=== PATIENT | female | born 1990 | race Two or more races ===

== ENCOUNTER 2024-01-08 17:37 | Emergency (ER) | payer MEDICAID, SELFPAY ==
[2024-01-08 17:41] VITALS: PULSE 102; O2SAT 98
[2024-01-08 18:05] VITALS: BP 124/79; PULSE 86; RESP 18; TEMP 37.1; O2SAT 99; BMI 42.5
--- NOTE | 2024-01-08 18:12 | PD.EDRME ---
Rapid Medical Screening Exam RME Arrival date/time: 01/08/24 17:37 33-year-old female past medical history of diabetes approximately 18 weeks A2 presents emergency department complaining of nausea vomiting and diarrhea that is been ongoing since today. Time Seen by Provider: 01/08/24 18:09 Vital signs: Vital Signs Temperature 98.7 F 01/08/24 18:05 Pulse Rate 86 01/08/24 18:05 Respiratory Rate 18 01/08/24 18:05 Blood Pressure 124/79 01/08/24 18:05 Pulse Oximetry (%) 99 01/08/24 18:05 Oxygen Delivery Method Room Air 01/08/24 18:05 Vital signs reviewed by provider: Yes
[2024-01-08 19:00] LABS: Basophils # (Auto) 0.1 Thou/mm3 (0.0-0.2); Basophils % (Auto) 1 % (0-2.5); Eosinophils # (Auto) 0.3 Thou/mm3 (0.0-0.5); Eosinophils % (Auto) 2 % (0-10); Hematocrit 31.8 % (36.0-46.0); Hemoglobin 10.1 g/dL (12.0-16.0); Immature Granulocytes % (Auto) 1 % (0-0); Lymphocytes % (Auto) 19 % (10-50); Mean Corpuscular HGB Conc 31.8 g/dl (31.0-37.0); Mean Corpuscular Hemoglobin 25.8 pg (25.0-35.0); Mean Corpuscular Volume 81 fL (80-100); Monocytes # (Auto) 1.2 Thou/mm3 (0.0-0.8); Monocytes % (Auto) 7 % (0-12); Neutrophils # (Auto) 11.4 Thou/mm3 (1.8-7.7); Neutrophils % (Auto) 71 % (37-80); Nucleated Red Blood Cell % 0 /100 WBC (0); Platelet Count 507 Thou/mm3 (140-440); RDW Standard Deviation 49.7 fL (36.4-46.3); Red Blood Count 3.91 Miln/mm3 (4.00-5.20); White Blood Count 16.1 Thou/mm3 (3.6-11.0)
[2024-01-08 19:21] LABS: Alanine Aminotransferase 12 U/L (10-49); Albumin, Serum 3.9 gm/dL (3.5-5.0); Albumin/Globulin Ratio 1.1 (1.2-2.2); Alkaline Phosphatase 109 U/L (46-116); Anion Gap 9 (7-16); Aspartate Amino Transferase 15 U/L (0-34); BUN/Creatinine Ratio 13 Ratio (12-20); Bilirubin,Total 0.2 mg/dL (0.3-1.2); Blood Urea Nitrogen 10 mg/dL (9-23); Calcium 9.6 mg/dL (8.3-10.6); Calcium (Corrected) 9.7 mg/dL (8.5-10.1); Carbon Dioxide 22.6 mMol/L (20.0-31.0); Chloride 98 mMol/L (98-107); Creatinine (Component) 0.8 mg/dL (0.6-1.3); Estimated Creatinine Clearance 117.3 mL/min (>60); Globulin 3.4 gm/dL (2.3-3.5); Glucose 260 mg/dL (74-106); Lipase 19 U/L (12-53); Osmolality,Calculated 268 (275-295); Potassium 4.1 mMol/L (3.4-5.1); Sodium 130 mMol/L (136-145); Total Protein 7.3 gm/dL (5.7-8.2); eGFR > 60 See Note
[2024-01-08 21:07] LABS: Collection Type, Urine Clean Catch
[2024-01-08 21:20] LABS: Bilirubin,Urine Negative (Negative); Blood,Urine Negative (Negative); Clarity,Urine Clear (Clear/Hazy); Color,Urine Yellow (Lt Yel-Yel); Culture Indicated,Urine Not Indicated; Glucose, Urine 4+ (Negative); Hyaline Casts,Urine < 1 /hpf (0-1); Ketones,Urine 2+ (Negative); Leukocyte Esterase,Urine Positive (Negative); Nitrite,Urine Negative (Negative); Protein,Urine 1+ (Neg - Trace); RBC,Urine 6 /hpf (0-3); Specific Gravity,Urine 1.047 (1.001-1.035); Squamous Epithelial Cell,Urine 2 /hpf (0-5); Urobilinogen,Urine Negative mg/dL (0.0-1.0); WBC,Urine 7 /hpf (0-5)
[2024-01-08 21:26] LABS: Amphetamine/Methamp Scrn,U Negative (Negative); Barbiturate Screen,Urine Negative (Negative); Benzodiazepines Screen,Urine Negative (Negative); Benzoylecgonine Screen, Ur Positive (Negative); Fentanyl Screen,Urine Negative (Negative); Opiate Screen,Urine Negative (Negative); THC Screen,Urine Negative (Negative)
--- NOTE | 2024-01-08 22:11 | XR_ITS ---
Examination: Complete OB ultrasound greater than 14 weeks Date and time of exam: January 08, 2024 1033 hrs. Indications: Onset vomiting today Findings: Viable intrauterine single fetus with single amniotic sac presentation breech Cardiac motion 136 BPM Placenta posterior grade 0 Umbilical cord insertion seen Amniotic fluid index 13.2 cm Ovaries obscured by bowel gas. Composite estimated gestational age based on BPD, head circumference, abdominal circumference, femur length is 17 weeks 2 days Estimated weight 179.8 g. Survey of intracranial anatomy, spinal anatomy, abdominal anatomy, four-chamber heart performed with no abnormalities identified. Impression: Viable intrauterine gestation breech presentation.
[2024-01-08] MEDS: ONDANSETRON ODT 4 MG TABRAP PO (23:13)
[2024-01-08 23:22] LABS: Beta HCG,Quantitative 24013 mIU/mL (<5.0)
--- NOTE | 2024-01-08 23:57 | PD.EDNV ---
Nausea/Vomit./Diarrhea-RME/HPI General Stated complaint: N/V Time Seen by Provider: 01/08/24 18:09 Source: patient Arrival date/time: 01/08/24 17:37 33-year-old female past medical history of diabetes approximately 18 weeks A2 presents emergency department complaining of nausea vomiting and diarrhea and dysuria that is been ongoing since today. Patient denies any fever, chills, vaginal bleeding, flank pain, abdominal pain, or any other associated symptom. Mode of arrival: ambulatory Limitations: no limitations RME / HPI RME / HPI Narrative: 01/08/24 17:37 33-year-old female past medical history of diabetes approximately 18 weeks A2 presents emergency department complaining of nausea vomiting and diarrhea that is been ongoing since today. Related Data Home Medications ?Medication ?Instructions ?Recorded ?Confirmed esomeprazole magnesium 40 mg 40 mg PO DAILY 04/24/22 12/24/23 capsule,delayed release Previous Rx's ?Medication ?Instructions ?Recorded blood-glucose sensor (FreeStyle #1 ea 05/19/23 Rickey 3 Sensor device) levothyroxine 112 mcg tablet 112 mcg PO ACBR #30 tabs 12/16/23 multivitamin with folic acid 400 1 tab PO DAILY #30 tabs 12/16/23 mcg tablet (Tab-A-Juanita) ondansetron HCl 4 mg tablet 4 mg PO Q8H PRN nausea and 12/16/23 vomiting #30 tabs promethazine 25 mg tablet 25 mg PO Q6HR PRN Nausea Or 12/16/23 Vomiting #30 tabs insulin glargine U-300 conc 300 40 unit (0.1333 mL) subcut ONCE PM 12/25/23 unit/mL (1.5 mL) subcutaneous pen #4.5 mL (Toujeo SoloStar U-300 Insulin) insulin lispro 100 unit/mL 8 unit (0.08 mL) subcut TID #15 mL 12/25/23 subcutaneous pen (Humalog KwikPen (U-100) Insulin) nortriptyline 25 mg capsule 25 mg PO DAILY 30 days #30 caps 12/25/23 cephalexin 500 mg capsule 500 mg PO TID 5 days #15 caps 01/08/24 ondansetron 4 mg disintegrating 4 mg PO Q8H PRN nausea and 01/08/24 tablet vomiting #10 tabs Allergies Allergy/AdvReac Type Severity Reaction Status Date / Time No Known Allergies Allergy Verified 12/23/23 13:08 Review of Systems Review of Systems Systems Reviewed: All systems reviewed, normal except as documented Constitutional Constitutional: Reports system reviewed and no additional complaints, except as documented, Denies body ache(s), Denies chills and Denies fever(s) Eyes Eyes: Reports system reviewed and no additional complaints, except as documented and Denies change in vision ENT Ears, Nose, Mouth, and Throat: Reports system reviewed and no additional complaints, except as documented, Denies disequilibrium, Denies dizziness, Denies sore throat and Denies vertigo Cardiovascular Cardiovascular: Reports system reviewed and no additional complaints, except as documented, Denies chest pain and Denies dyspnea Respiratory Respiratory: Reports system reviewed and no additional complaints, except as documented, Denies chest congestion, Denies cough and Denies dyspnea Gastrointestinal Gastrointestinal: Reports system reviewed and no additional complaints, except as documented, Denies abdominal pain, Reports diarrhea, Reports nausea and Reports vomiting Genitourinary Genitourinary: Reports dysuria and Reports urinary urgency Musculoskeletal Musculoskeletal: Reports system reviewed and no additional complaints, except as documented, Denies abnormal gait and Denies arthralgias Integumentary/Breasts Skin/Breast: Reports system reviewed and no additional complaints, except as documented, Denies erythema, Denies rash and Denies wounds Neurologic Neurologic: Reports system reviewed and no additional complaints, except as documented, Denies abnormal gait, Denies disequilibrium, Denies dizziness and Denies vertigo Past Medical History Past Medical History NEUROLOGIC: Negative Neurological Disorders, Meningitis, Seizures or Migraine CARDIAC: Negative Cardiac Disorders, Congestive Heart Failure, Edema or Hypertension RESPIRATORY: Negative Chronic Obstructive Pulmonary Disease (COPD), Asthma or Emphysema GASTROINTESTINAL: Positive Gastrointestinal Disorders (gastroparesis) and Obesity; Negative Hepatitis, Pancreatitis, Gall Bladder Disease or Gastroesophageal Reflux Disease GENITOURINARY: Negative Genitourinary Disorders, Renal Disease or Kidney Stones REPRODUCTIVE: Positive Previous Pregnancies; Negative Pelvic Inflammatory Disease MUSCULOSKELETAL: Negative Musculoskeletal Disorders, Marfan's Syndrome, Degenerative Disk Disease or Gout ENDOCRINE: Positive Endocrine Disorders, Diabetes Mellitus Type 1 and Hypothyroidism; Negative Diabetes Mellitus Type 2 HEMATOLOGIC: Negative Blood Disorders, Anemia or Sickle Cell Disease PSYCHO/SOCIAL: Positive Recreational Drug Use, Depression and Anxiety; Negative Behavior Problems OTHER HISTORY: Positive Hospitalization and Chicken Pox; Negative Autoimmune Disease, Down Syndrome, Developmental Delay, Shingles, Falls, Blood Transfusions, Blood Transfusion Reaction, Anesthesia Reactions, Organ Transplant, Chemotherapy, Radiation Therapy, Hyperbaric Therapy, MRSA, VRSA, Vancomycin-Resistant Enterococci, Human Immunodeficiency Virus (HIV), Measles, Mumps, Rubella (Emirati Measles), Pertussis, Clostridium Difficile or Cancer Family History FAMILY HISTORY: Positive Family Gastrointestinal Problems; Negative Family Psychiatric Problems, Family Respiratory Disorders, Family Cardiac Disorders, Family Cancer, Family Surgery or Family Anesthesia Reaction Surgical History SURGICAL: Positive Section; Negative Ear Surgery, Eye Surgery, Nose Surgery, Oral Surgery, Abdominal Surgery, Nephrectomy, Joint Replacement, Neurologic Surgery or Organ Transplant Social History SMOKING STATUS: Never smoker SECOND HAND EXPOSURE: No SUBSTANCE USE: crack/cocaine and opiates ED Exam General Limitations: Present no limitations General appearance: Present alert and in no apparent distress Head Head exam: Present atraumatic Eye Eye exam: Present normal appearance, PERRL and EOMI ENT ENT exam: Present normal exam, normal oropharynx and mucous membranes moist Neck Neck exam: Present normal inspection, full ROM and trachea midline Chest Chest inspection: Present normal inspection and symmetric chest wall rise Respiratory Respiratory exam: Present normal lung sounds bilaterally Cardiovascular Cardiovascular exam: Present regular rate, normal rhythm and normal heart sounds Abdominal Exam Abdominal exam: Present soft and normal bowel sounds; Absent tenderness Extremities Exam Extremities exam: Present normal inspection and full ROM Back Exam Back exam: Present normal inspection and full ROM Neurological Exam Neurological exam: Present alert, oriented X3 and CN II-XII intact Psychiatric Psychiatric exam: Present normal affect and normal mood Skin Skin exam: Present warm, dry, intact and normal color Course Quality Measures none Orders Category Date Time Status Bedside Blood Glucose NOW Care 01/08/24 18:14 Active heart tone auscultation [facility] Care 01/08/24 21:25 Active US OB >= 14 weeks Fetus Stat Exams 01/08/24 22:11 Completed Beta HCG,Quantitative Stat Lab 01/08/24 18:35 Completed CBC Stat Lab 01/08/24 18:35 Completed CMP [Comprehensive Metabolic Panel] Stat Lab 01/08/24 18:35 Completed Drug Screen,Urine Stat Lab 01/08/24 21:01 Completed Lipase Stat Lab 01/08/24 18:35 Completed Urinalysis, C/S if Indicated Stat Lab 01/08/24 21:01 Completed Metoclopramide Inj [Reglan Inj] Med 01/08/24 23:53 Once 10 mg IM X1 ONE Ondansetron Odt [Zofran Odt] Med 01/08/24 22:35 Discontinued 4 mg PO X1 ONE Ondansetron Odt [Zofran Odt] Med 01/08/24 22:36 Discontinued 4 mg PO X1 ONE cefTRIAXone [Rocephin] 1,000 mg Med 01/08/24 23:41 Discontinued Lidocaine 1% 20 ml [Xylocaine 1% 20 ML] 2.1 ml IM X1 Vital Signs Vital signs: Vital Signs Temperature 98.7 F 01/08/24 18:05 Pulse Rate 86 01/08/24 18:05 Respiratory Rate 18 01/08/24 18:05 Blood Pressure 124/79 01/08/24 18:05 Pulse Oximetry (%) 99 01/08/24 18:05 Oxygen Delivery Method Room Air 01/08/24 18:05 99% room air within normal limits Nausea/Vomiting/Diarrhea MDM Narrative MDM Narrative:: 33-year-old female past medical history of diabetes approximately 18 weeks A2 presents emergency department complaining of nausea vomiting and diarrhea and dysuria that is been ongoing since today. Patient denies any fever, chills, vaginal bleeding, flank pain, abdominal pain, or any other associated symptom. Patient appears nontoxic and hemodynamically stable. CBC remarkable for leukocytosis 16.1. CMP unremarkable other than blood glucose 260 patient diabetic on insulin. Urinalysis positive for leukocytes, WBCs, and blood. Ultrasound findings viable intrauterine gestation at 17 weeks 2 days. Patient's toxicology positive for cocaine. Patient reports is compliant with insulin for diabetes. Patient given IM Rocephin for UTI during and instructed to avoid using recreational drugs during . Instructed patient to continue taking vitamins and have close follow-up with primary care provider and [employer] [employer] in 24 to 48 hours and return to the emergency department for any worsening symptoms or as needed. Patient data External records reviewed:: [facility] previous records Clinical information provided by:: patient Social determinants that could affect healthcare access:: substance use Patient has the following chronic illnesses:: See chart How is presenting disease/condition affected by chronic disease/condition?: exacerbated by Evaluation data The following diagnostics were reviewed and interpreted by me:: lab results and radiology exam(s) Lab and/or radiology exams considered but not ordered:: Ordered Interpretation Summary: Interpreted by me Medications / Prescriptions Medications / Prescriptions considered but not ordered:: Ordered Medication administrations:: Medication Administration History Metoclopramide HCl (Metoclopramide Inj 5 Mg/Ml Vial 2 Ml) 10 mg IM X1 ONE; Protocol Stop: 01/08/24 23:54 Discontinued Medications Ceftriaxone Sodium 1,000 mg/ (Lidocaine HCl 2.1 ml) 0 mg IM X1 ONE Stop: 01/08/24 23:42 Ondansetron HCl (Ondansetron Odt 4 Mg Tabrap) 4 mg PO X1 ONE; Protocol Stop: 01/08/24 22:36 Ondansetron HCl (Ondansetron Odt 4 Mg Tabrap) 4 mg PO X1 ONE; Protocol Stop: 01/08/24 22:37 Last Admin: 01/08/24 23:13 Dose: 4 mg Documented By: Given Consultations Consultation(s) initiated? (list below): No Diagnosis Nausea Differential Diagnosis: traveler's diarrhea, food poisoning, gastroenteritis, drug-induced nausea and vomiting and dehydration Most likely diagnosis given after review of the tests above:: Cocaine use UTI during Admission Indicated Admission indicated?: not indicated Admission Request Was there a request for admission?: No Disposition Plan Disposition Plan: Discharge Discharge Attestation Discharge Attestation: The patient and all family members were given an opportunity to ask questions and understood the discharge instructions. Discharge instructions specifically effects, indications for sooner follow up or return to the emergency department, and the expected course of current diagnosis. Patient condition: Stable Discharge Plan Plan Patient Disposition: HOME (Self Care) Disposition Comment: Stable Prescriptions/Referrals Prescriptions/Med Rec: New cephalexin 500 mg capsule 500 mg PO TID 5 Days Qty: 15 0RF ondansetron 4 mg tablet,disintegrating 4 mg PO Q8H PRN (Reason: nausea and vomiting) Qty: 10 0RF No Action esomeprazole magnesium 40 mg capsule,delayed release(DR/EC) 40 mg PO DAILY Patient Comments: TAKE 1 CAPSULE BY MOUTH EVERY DAY FOR 30 DAYS levothyroxine 112 mcg Tablet 112 mcg PO ACBR Qty: 30 0RF multivitamin with folic acid [Tab-A-Juanita] 400 mcg Tablet 1 tab PO DAILY Qty: 30 0RF promethazine 25 mg Tablet 25 mg PO Q6HR PRN (Reason: Nausea Or Vomiting) Qty: 30 0RF ondansetron HCl 4 mg tablet 4 mg PO Q8H PRN (Reason: nausea and vomiting) Qty: 30 0RF (DME) FreeStyle Rickey 3 Sensor Device See Rx Instructions .Route Qty: 1 0RF Rx Instructions: As directed nortriptyline 25 mg capsule 25 mg PO DAILY 30 Days Qty: 30 0RF Patient Comments: TAKE 1 CAPSULE BY MOUTH EVERY DAY Rx Instructions: Follow up with PCP and OBGYN to see if can stay on this one safely or if need to change insulin lispro [Humalog KwikPen Insulin] 100 unit/mL insulin pen 8 unit subcut TID Qty: 15 0RF insulin glargine U-300 conc [Toujeo SoloStar U-300 Insulin] 300 unit/mL (1.5 mL) insulin pen 40 unit SUBCUT ONCE PM Qty: 4.5 4RF Referrals: Wilian Carrero MD [Primary Care Provider] - In 1 week Problem List Clinical Impression: Infection of urinary tract during , Cocaine use Patient/Caregiver Discharge Instructions Discharge Activity: activity as tolerated Education Materials: Substance Abuse and Traumatic ..., Urinary Tract Infections in Women Additional Instructions: Avoid using cocaine. Please follow-up with primary care provider and [employer] in 24 to 48 hours. Continue taking vitamins. Return to the emergency department for any worsening symptoms or as needed. Print Language: Northern Irish Stand Alone Forms: Dominique Award Info., Patient Portal Info Letter PA/LEATHER WHITENER Supervising Physician PA/LEATHER WHITENER Supervising Physician: Dr. Fortune
[2024-01-09] MEDS: METOCLOPRAMIDE INJ 5 MG/ML VIAL 2 ML 10 MG IM (00:06)
[2024-01-09] MEDS: cefTRIAXone 1,000 MG, LIDOCAINE 1% 20 ML 2.1 ML IM (00:06)
== END 2024-01-09 00:15 | disposition home or self-care (01) ==
PROVIDERS: Emergency Provider Emergency Medicine; PCP Family Medicine
DX: O23.42 Unspecified infection of urinary tract in pregnancy, second trimester (principal); N39.0 Urinary tract infection, site not specified; O99.322 Drug use complicating pregnancy, second trimester; F14.90 Cocaine use, unspecified, uncomplicated; Z3A.17 17 weeks gestation of pregnancy
CPT/HCPCS: 36415; 76805; 80053; 80307; 81001; 83690; 84702; 85025; 87400; 87811; 96372; 99284; J0696; J2765; J3490; Q0162

== ENCOUNTER 2024-01-20 12:50 | Emergency (ER) | payer MEDICAID, SELFPAY ==
[2024-01-20] VITALS (7 sets, daily range): BP systolic 106–134; BP diastolic 61–89; PULSE 97–110; RESP 16–19; TEMP 36.6–36.8; O2SAT 99–100; BMI 42.5
--- NOTE | 2024-01-20 13:24 | PD.EDRME ---
Rapid Medical Screening Exam RME Arrival date/time: 01/20/24 12:50 This is a 33-year-old female that comes in with complaints of abdominal pain, nausea vomiting that started this morning. Patient reports that she is 19 weeks . Patient does not remember when her last menstrual cycle was. Patient is a 4 para 1. Patient has a long history of diabetes and has had DKA in the past I have greeted and performed a focused initial assessment of this patient. Initial appropriate labs ordered at this time. A comprehensive ED assessment and evaluation of the patient and analysis of all test and completion of medical decision making process will be conducted by additional ED provider. Chief Complaint: Abdominal Pain Time Seen by Provider: 01/20/24 13:17 Vital signs: Vital Signs Temperature 98.0 F 01/20/24 13:21 Pulse Rate 97 01/20/24 13:21 Respiratory Rate 19 01/20/24 13:21 Blood Pressure 124/85 H 01/20/24 13:21 Pulse Oximetry (%) 99 01/20/24 13:21 Oxygen Delivery Method Room Air 01/20/24 13:21
[2024-01-20] MEDS: ONDANSETRON ODT 4 MG TABRAP PO ×2 (13:35→16:02)
[2024-01-20 13:43] LABS: Basophils # (Auto) 0.1 Thou/mm3 (0.0-0.2); Basophils % (Auto) 1 % (0-2.5); Beta Hydroxybutyrate 0.2 mmol/L (<0.6); Eosinophils # (Auto) 0.9 Thou/mm3 (0.0-0.5); Eosinophils % (Auto) 5 % (0-10); Hematocrit 30.1 % (36.0-46.0); Hemoglobin 9.8 g/dL (12.0-16.0); Immature Granulocytes % (Auto) 1 % (0-0); Immature Granulocytes Auto 0.15 Thou/mm3 (0.00-0.00); Lymphocytes # (Auto) 3.4 Thou/mm3 (1.0-4.8); Lymphocytes % (Auto) 18 % (10-50); Mean Corpuscular HGB Conc 32.6 g/dl (31.0-37.0); Mean Corpuscular Hemoglobin 26.3 pg (25.0-35.0); Mean Corpuscular Volume 81 fL (80-100); Monocytes # (Auto) 1.3 Thou/mm3 (0.0-0.8); Monocytes % (Auto) 7 % (0-12); Neutrophils % (Auto) 69 % (37-80); Nucleated Red Blood Cell % 0 /100 WBC (0); Platelet Count 477 Thou/mm3 (140-440); RDW Standard Deviation 49.8 fL (36.4-46.3); Red Blood Count 3.73 Miln/mm3 (4.00-5.20); White Blood Count 18.8 Thou/mm3 (3.6-11.0)
[2024-01-20 14:03] LABS: Alanine Aminotransferase 11 U/L (10-49); Albumin, Serum 3.8 gm/dL (3.5-5.0); Albumin/Globulin Ratio 1.3 (1.2-2.2); Alkaline Phosphatase 106 U/L (46-116); Anion Gap 7 (7-16); Aspartate Amino Transferase 14 U/L (0-34); BUN/Creatinine Ratio 11 Ratio (12-20); Bilirubin,Total 0.2 mg/dL (0.3-1.2); Blood Urea Nitrogen 8 mg/dL (9-23); Calcium 9.1 mg/dL (8.3-10.6); Calcium (Corrected) 9.3 mg/dL (8.5-10.1); Carbon Dioxide 22.2 mMol/L (20.0-31.0); Chloride 100 mMol/L (98-107); Creatinine (Component) 0.7 mg/dL (0.6-1.3); Estimated Creatinine Clearance 134.1 mL/min (>60); Globulin 2.9 gm/dL (2.3-3.5); Glucose 184 mg/dL (74-106); Lipase 19 U/L (12-53); Osmolality,Calculated 262 (275-295); Potassium 4.3 mMol/L (3.4-5.1); Sodium 129 mMol/L (136-145); Total Protein 6.7 gm/dL (5.7-8.2); eGFR > 60 See Note
--- NOTE | 2024-01-20 14:52 | PC.NURSE ---
PT REMINDED OF NEED FOR URINE SAMPLE.
[2024-01-20 15:35] LABS: Collection Type, Urine Voided
[2024-01-20 16:01] LABS: Bilirubin,Urine Negative (Negative); Blood,Urine Negative (Negative); Clarity,Urine Turbid (Clear/Hazy); Color,Urine Yellow (Lt Yel-Yel); Culture Indicated,Urine Not Indicated; Glucose, Urine 2+ (Negative); Ketones,Urine 1+ (Negative); Leukocyte Esterase,Urine Positive (Negative); Nitrite,Urine Negative (Negative); Protein,Urine 1+ (Neg - Trace); RBC,Urine 2 /hpf (0-3); Specific Gravity,Urine 1.022 (1.001-1.035); Squamous Epithelial Cell,Urine 17 /hpf (0-5); Urobilinogen,Urine Negative mg/dL (0.0-1.0); WBC,Urine 2 /hpf (0-5)
[2024-01-20 16:19] LABS: Amphetamine/Methamp Scrn,U Negative (Negative); Barbiturate Screen,Urine Negative (Negative); Benzodiazepines Screen,Urine Negative (Negative); Benzoylecgonine Screen, Ur Negative (Negative); Fentanyl Screen,Urine Negative (Negative); Opiate Screen,Urine Negative (Negative); THC Screen,Urine Negative (Negative)
--- NOTE | 2024-01-20 18:27 | PC.NURSE ---
PT IN TODAY FOR NAUSEA AND VOMITING THAT STARTED LAST NIGHT. PT STATES THAT SHE HAS HAD N/V THROUGHOUT HER , BUT THIS FEELS DIFFERENT. PT STATES THAT SHE USUALLY FEELS RELIEF AFTER VOMITING BUT NOT THIS TIME. PT DEANN TAKING ANY MEDICATION AT HOME. PT STATES TO BE /1 STILL BORN AND 1 MISCARRIAGE. PT AWAITING TO BE SEEN.
--- NOTE | 2024-01-20 18:59 | EDNOTE_ITS ---
ED General RME/HPI General Chief complaint: Abdominal Pain Stated complaint: ABD PAIN, N/V, DIZZINESS Time Seen by Provider: 01/20/24 13:17 Arrival date/time: 01/20/24 12:50 RME / HPI RME / HPI narrative: DR. DOE MAIN ED EVALUATION: 33-year-old female with past medical history significant for hyperemesis gravidarum, history of diabetes presents to the Emergency Department with complaint of multiple episodes of vomiting today. Patient states that she has had about 10 episodes of nonbilious and nonbloody emesis and really is having more dry heaving as well and cannot keep anything down. This is happened throughout her . This is not worse than her previous episodes. Patient has a history of this in previous pregnancies. The patient has had DKA but she does not feel like she is in DKA at this time. Denies diarrhea, fevers cough runny nose. Good movement. Patient states that she feels better will give her IV fluids. History of diabetes on insulin Ob HOTA , due date is June 10, 2024 Related Data Home Medications ?Medication ?Instructions ?Recorded ?Confirmed esomeprazole magnesium 40 mg 40 mg PO DAILY 04/24/22 12/24/23 capsule,delayed release Previous Rx's ?Medication ?Instructions ?Recorded blood-glucose sensor (FreeStyle #1 ea 05/19/23 Rickey 3 Sensor device) levothyroxine 112 mcg tablet 112 mcg PO ACBR #30 tabs 12/16/23 multivitamin with folic acid 400 1 tab PO DAILY #30 tabs 12/16/23 mcg tablet (Tab-A-Juanita) ondansetron HCl 4 mg tablet 4 mg PO Q8H PRN nausea and 12/16/23 vomiting #30 tabs promethazine 25 mg tablet 25 mg PO Q6HR PRN Nausea Or 12/16/23 Vomiting #30 tabs insulin glargine U-300 conc 300 40 unit (0.1333 mL) subcut ONCE PM 12/25/23 unit/mL (1.5 mL) subcutaneous pen #4.5 mL (Toujeo SoloStar U-300 Insulin) insulin lispro 100 unit/mL 8 unit (0.08 mL) subcut TID #15 mL 12/25/23 subcutaneous pen (Humalog KwikPen (U-100) Insulin) nortriptyline 25 mg capsule 25 mg PO DAILY 30 days #30 caps 12/25/23 ondansetron 4 mg disintegrating 4 mg PO Q8H PRN nausea and 01/08/24 tablet vomiting #10 tabs Allergies Allergy/AdvReac Type Severity Reaction Status Date / Time No Known Allergies Allergy Verified 12/23/23 13:08 Review of Systems Review of Systems Systems Reviewed: All systems reviewed, normal except as documented Narrative Review of Systems: GEN: No fever, no chills, no weight loss EYES: No discharge, no visual changes, no pain HEENT: No ear pain, no congestion, no sore throat PULM: No shortness of breath, no cough, no congestion CV: No chest pain, no dyspnea on exertion, no palpitations GI: No nausea, + vomiting (see HPI), no diarrhea, no pain, no constipation : No frequency, no urgency and no dysuria MUSC/SKEL: No joint pain, no back pain SKIN: No rash PSYCH: No hallucinations, no depression HEME/LYMPH: No easy bleeding or bruising tendencies NEURO: No weakness, no headache Past Medical History Past Medical History GASTROINTESTINAL: Positive Gastrointestinal Disorders (GASTROPARESISI) and Obesity REPRODUCTIVE: Positive Previous Pregnancies ENDOCRINE: Positive Endocrine Disorders, Diabetes Mellitus Type 1 and Hypothyroidism PSYCHO/SOCIAL: Positive Recreational Drug Use, Depression and Anxiety OTHER HISTORY: Positive Hospitalization and Chicken Pox Family History FAMILY HISTORY: Positive Family Gastrointestinal Problems Surgical History SURGICAL: Positive Section (X2) Social History SMOKING STATUS: Never smoker SECOND HAND EXPOSURE: No SUBSTANCE USE: crack/cocaine and opiates ALCOHOL: Never ED Exam Narrative Physical exam: Patient patient lying in the stretcher in a gown in minimal distress. Appearing fatigued. General General appearance: Present obese; Absent lethargic or obtunded Eye Eye exam: Absent scleral icterus ENT ENT exam: Present normal exam and mucous membranes dry Chest Chest inspection: Present normal inspection and symmetric chest wall rise; Absent tenderness or rash Respiratory Respiratory exam: Present normal lung sounds bilaterally; Absent respiratory distress or accessory muscle use Abdominal Exam Abdominal exam: Present soft and other (Patient is gravid, up to about the umbilicus); Absent distention, tenderness, guarding or rebound Extremities Exam Extremities exam: Present normal inspection; Absent tenderness, normal capillary refill, pedal edema or calf tenderness Neurological Exam Neurological exam: Present alert and oriented X3; Absent CN II-XII intact, normal gait or motor sensory deficit Psychiatric Psychiatric exam: Present normal affect; Absent normal mood, depressed, agitated or anxious Skin Skin exam: Present warm and dry; Absent intact, normal color or rash Course Quality Measures none Orders Category Date Time Status Beta Hydroxybutyrate Stat Lab 01/20/24 13:35 Completed CBC [CBC] Stat Lab 01/20/24 13:35 Completed Comprehensive Metabolic Panel Stat Lab 01/20/24 13:35 Completed Drug Screen,Urine Stat Lab 01/20/24 15:29 Completed Lipase Stat Lab 01/20/24 13:35 Completed Urinalysis, C/S if Indicated Stat Lab 01/20/24 15:27 Completed Metoclopramide Inj [Reglan Inj] Med 01/20/24 19:02 Discontinued 10 mg IVP X1 ONE Ondansetron Inj [Zofran Inj] Med 01/20/24 21:13 Discontinued 4 mg IV X1 ONE Ondansetron Odt [Zofran Odt] Med 01/20/24 13:23 Discontinued 4 mg PO X1 ONE Ondansetron Odt [Zofran Odt] Med 01/20/24 15:35 Discontinued 4 mg PO X1 ONE Sodium Chloride 0.9% 1000 ml [Ns] 1,000 ml Med 01/20/24 19:02 Discontinued IV 999 mls/hr Sodium Chloride 0.9% 1000 ml [Ns] 1,000 ml Med 01/20/24 19:02 Discontinued IV 999 mls/hr Vital Signs Vital signs: Vital Signs Temperature 98.0 F 01/20/24 13:21 Pulse Rate 97 01/20/24 13:21 Respiratory Rate 19 01/20/24 13:21 Blood Pressure 124/85 H 01/20/24 13:21 Pulse Oximetry (%) 99 01/20/24 13:21 Oxygen Delivery Method Room Air 01/20/24 13:21 [facility] Patient data External records reviewed:: [facility] previous records (Reviewed last ED visit dated 01/08/24, discharged with the following: Cocaine use.) Clinical information provided by:: patient Social determinants that could affect healthcare access:: substance use Patient has the following chronic illnesses:: hyperemesis gravidarum, history of diabetes on insulin OB HOTA. , due date is June 10, 2024. How is presenting disease/condition affected by chronic disease/condition?: e xacerbated by Evaluation data The following diagnostics were reviewed and interpreted by me:: lab results Lab and/or radiology exams considered but not ordered:: none Interpretation Summary: See under MDM narrative. Medications Medications considered but not ordered:: none Medication administrations:: Medication Administration History Discontinued Medications Sodium Chloride (Ns) 1,000 mls @ 999 mls/hr IV .Q1H1M ONE Stop: 01/20/24 20:02 Last Infusion: 01/20/24 21:54 Dose: Infused Documented By: Admin: 01/20/24 19:14 Dose: 999 mls/hr Documented By: JAYASHREE Sodium Chloride (Ns) 1,000 mls @ 999 mls/hr IV .Q1H1M ONE Stop: 01/20/24 20:02 Last Infusion: 01/20/24 21:54 Dose: Infused Documented By: Admin: 01/20/24 19:13 Dose: 999 mls/hr Documented By: JAYASHREE Metoclopramide HCl (Metoclopramide Inj 5 Mg/Ml Vial 2 Ml) 10 mg IVP X1 ONE; Protocol Stop: 01/20/24 19:03 Last Admin: 01/20/24 19:14 Dose: 10 mg Documented By: JAYASHREE Ondansetron HCl (Ondansetron Odt 4 Mg Tabrap) 4 mg PO X1 ONE; Protocol Stop: 01/20/24 13:24 Last Admin: 01/20/24 13:35 Dose: 4 mg Documented By: JOAN Ondansetron HCl (Ondansetron Odt 4 Mg Tabrap) 4 mg PO X1 ONE; Protocol Stop: 01/20/24 15:36 Last Admin: 01/20/24 16:02 Dose: 4 mg Documented By: RADHA Ondansetron HCl (Ondansetron Inj 2 Mg/Ml Inj 2 Ml) 4 mg IV X1 ONE; Protocol Stop: 01/20/24 21:14 Last Admin: 01/20/24 21:28 Dose: 4 mg Documented By: JAYASHREE see above Consultations Consultation(s) initiated? (list below): No Diagnosis Differential Diagnosis ED Complaint MDM: hyperemesis gravidarum, dehydration, electrolyte imbalance Most likely diagnosis given after review of the tests above:: Hyperemesis gravidarum Admission Indicated Admission indicated?: not indicated Explain why admission is indicated or not indicated:: Patient has no emergent abnormalities on his studies and can be managed on an outpatient basis. Admission Request Was there a request for admission?: No Disposition Plan Disposition Plan: Discharge Discharge Attestation Discharge Attestation: The patient and all family members were given an opportunity to ask questions and understood the discharge instructions. Discharge instructions specifically effects, indications for sooner follow up or return to the emergency department, and the expected course of current diagnosis. Patient condition: Stable Medical Decision Making MDM Narrative MDM Narrative: DDX Diagnosis includes hyper emesis gravidarum, nausea, dehydration, electrolyte abnormality, Differential Diagnosis Differential Diagnosis: hyperemesis gravidarum, dehydration, electrolyte imbalance Lab Data 01/20/24 13:35 01/20/24 13:35 Labs: Lab Results 01/20/24 01/20/24 01/20/24 Range/Units 13:35 15:27 15:29 WBC 18.8 H (3.6-11.0) Thou/mm3 RBC 3.73 L (4.00-5.20) Miln/mm3 Hgb 9.8 L (12.0-16.0) g/dL Hct 30.1 L (36.0-46.0) % MCV 81 (80-100) fL MCH 26.3 (25.0-35.0) pg MCHC 32.6 (31.0-37.0) g/dl RDW Std Deviation 49.8 H (36.4-46.3) fL Plt Count 477 H D (140-440) Thou/mm3 Neut % (Auto) 69 (37-80) % Lymph % (Auto) 18 (10-50) % [place] % (Auto) 7 (0-12) % Eos % (Auto) 5 (0-10) % Baso % (Auto) 1 (0-2.5) % Neut # (Auto) 13.0 H (1.8-7.7) Thou/mm3 Lymph # (Auto) 3.4 (1.0-4.8) Thou/mm3 [place] # (Auto) 1.3 H (0.0-0.8) Thou/mm3 Eos # (Auto) 0.9 H (0.0-0.5) Thou/mm3 Baso # (Auto) 0.1 (0.0-0.2) Thou/mm3 Immature Gran # (Auto) 0.15 H (0.00-0.00) Thou/mm3 Absolute Nucleated RBC 0.00 (0.00-0.00) Thou/mm3 Immature Gran % 1 H (0-0) % Nucleated RBC % 0 (0) /100 WBC Sodium 129 L (136-145) mMol/L Potassium 4.3 (3.4-5.1) mMol/L Chloride 100 (98-107) mMol/L Carbon Dioxide 22.2 (20.0-31.0) mMol/L Anion Gap 7 (7-16) BUN 8 L (9-23) mg/dL Creatinine 0.7 (0.6-1.3) mg/dL Estim Creat Clear Calc 134.1 (>60) mL/min eGFR > 60 (60 - ) See Note BUN/Creatinine Ratio 11 L (12-20) Ratio Glucose 184 H (74-106) mg/dL Calculated Osmolality 262 L (275-295) Calcium 9.1 (8.3-10.6) mg/dL Corrected Calcium 9.3 (8.5-10.1) mg/dL Total Bilirubin 0.2 L (0.3-1.2) mg/dL AST 14 (0-34) U/L ALT 11 (10-49) U/L Alkaline Phosphatase 106 (46-116) U/L Total Protein 6.7 (5.7-8.2) gm/dL Albumin 3.8 (3.5-5.0) gm/dL Globulin 2.9 (2.3-3.5) gm/dL Albumin/Globulin Ratio 1.3 (1.2-2.2) Lipase 19 (12-53) U/L Beta-Hydroxybutyrate/Acetoacetate 0.2 (<0.6) mmol/L Ur Collection Type Voided Urine Color Yellow (Lt Yel-Yel) Urine Clarity Turbid A (Clear/Hazy) Urine pH 7.0 (5.0-7.0) Ur Specific [place] 1.022 (1.001-1.035) Urine Protein 1+ A (Neg - Trace) Urine Glucose (UA) 2+ A (Negative) Urine Ketones 1+ A (Negative) Urine Blood Negative (Negative) Urine Nitrite Negative (Negative) Urine Bilirubin Negative (Negative) Urine Urobilinogen (Auto) Negative (0.0-1.0) mg/dL Ur Leukocyte Esterase Positive (Negative) Urine RBC 2 (0-3) /hpf Urine WBC 2 (0-5) /hpf Ur Squamous Epith Cells 17 H (0-5) /hpf Urine Bacteria None (None) Ur Culture Indicated? Not Indicated Urine Opiates Screen Negative (Negative) Urine Fentanyl Screen Negative (Negative) Ur Barbiturates Screen Negative (Negative) U Amphetamin/Meth Scrn Negative (Negative) U Benzodiazepines Scrn Negative (Negative) U Cocaine Metab Screen Negative (Negative) U Marijuana (THC) Screen Negative (Negative) Discharge Plan Plan Patient Disposition: HOME (Self Care) Patient condition on transfer: Stable Prescriptions/Referrals Prescriptions/Med Rec: No Action esomeprazole magnesium 40 mg capsule,delayed release(DR/EC) 40 mg PO DAILY Patient Comments: TAKE 1 CAPSULE BY MOUTH EVERY DAY FOR 30 DAYS levothyroxine 112 mcg Tablet 112 mcg PO ACBR Qty: 30 0RF multivitamin with folic acid [Tab-A-Juanita] 400 mcg Tablet 1 tab PO DAILY Qty: 30 0RF promethazine 25 mg Tablet 25 mg PO Q6HR PRN (Reason: Nausea Or Vomiting) Qty: 30 0RF ondansetron HCl 4 mg tablet 4 mg PO Q8H PRN (Reason: nausea and vomiting) Qty: 30 0RF (DME) FreeStyle Rickey 3 Sensor Device See Rx Instructions .Route Qty: 1 0RF Rx Instructions: As directed nortriptyline 25 mg capsule 25 mg PO DAILY 30 Days Qty: 30 0RF Patient Comments: TAKE 1 CAPSULE BY MOUTH EVERY DAY Rx Instructions: Follow up with PCP and OBGYN to see if can stay on this one safely or if need to change insulin lispro [Humalog KwikPen Insulin] 100 unit/mL insulin pen 8 unit subcut TID Qty: 15 0RF insulin glargine U-300 conc [Toujeo SoloStar U-300 Insulin] 300 unit/mL (1.5 mL) insulin pen 40 unit SUBCUT ONCE PM Qty: 4.5 4RF ondansetron 4 mg tablet,disintegrating 4 mg PO Q8H PRN (Reason: nausea and vomiting) Qty: 10 0RF Referrals: Wilian Carrero MD [Primary Care Provider] - In 1 week Problem List Clinical Impression: Hyperemesis gravidarum Patient/Caregiver Discharge Instructions Diet Instructions: Stay hydrated with sugar-free Pedialyte and/or sugar-free Gatorade. Education Materials: ED Dehydration (Adult), ED Hyperemesis Gravidarum Additional Instructions: Return to the emergency department for any worsening symptoms, or any other concerns. Continue all your medications per your INSURANCE CLAIMS ASSISTANT. Print Language: Upper Sorbian Stand Alone Forms: Dominique Award Info., Patient Portal Info Letter
[2024-01-20] MEDS: SODIUM CHLORIDE 0.9% 1000 ML 1,000 ML 999 ML IV ×2 (19:13→19:14)
[2024-01-20] MEDS: METOCLOPRAMIDE INJ 5 MG/ML VIAL 2 ML 10 MG IVP (19:14)
--- NOTE | 2024-01-20 21:11 | PC.NURSE ---
pt still very nauseated. Will inform MD.
[2024-01-20] MEDS: ONDANSETRON INJ 2 MG/ML INJ 2 ML 4 MG IV (21:28)
== END 2024-01-20 23:20 | disposition home or self-care (01) ==
PROVIDERS: Nurse Practitioner Family; Emergency Provider Emergency Medicine; PCP Family Medicine
DX: O21.0 Mild hyperemesis gravidarum (principal); Z3A.19 19 weeks gestation of pregnancy; O24.112 Pre-existing type 2 diabetes mellitus, in pregnancy, second trimester
CPT/HCPCS: 36415; 80053; 80307; 81001; 82010; 83690; 85025; 96361; 96374; 99284; J2405; J2765; J7030; Q0162

== ENCOUNTER 2024-01-30 16:43 | Inpatient (IN) | payer MEDICAID, SELFPAY ==
[2024-01-30] VITALS (22 sets, daily range): BP systolic 103–148; BP diastolic 68–96; PULSE 87–111; RESP 16–21; TEMP 36.9; O2SAT 88–100; BMI 41.8
--- NOTE | 2024-01-30 15:21 | XR_ITS ---
Examination: Complete OB ultrasound greater than 14 weeks Date and time of exam: January 30, 2024 at 1558 hours INDICATIONS: Type II in; diabetes, nausea and vomiting today Findings: Viable intrauterine single fetus with single amniotic sac presentation cephalic Cardiac motion 155 BPM Placenta fundal grade 1 Umbilical cord insertion 3 vessel seen Amniotic fluid index 18.4 cm Cervix 3.6 cm Ovaries obscured by bowel gas. Composite estimated gestational age based on BPD, head circumference, abdominal circumference, femur length is 19 weeks 6 days Estimated weight 331.9 g Survey of intracranial anatomy, spinal anatomy, abdominal anatomy, four-chamber heart performed with no abnormalities identified. Impression: Viable intrauterine gestation cephalic presentation.
--- NOTE | 2024-01-30 15:51 | PC.NURSE ---
phone call made to md thomas regarding pt, states to call us and get us results, icu charge called for iv insertion.
[2024-01-30] MEDS: SODIUM CHLORIDE 0.9% 1000 ML 1,000 ML 999 ML IV ×2 (16:10→18:03)
[2024-01-30] MEDS: ONDANSETRON INJ 2 MG/ML INJ 2 ML 4 MG IV (16:17)
[2024-01-30 16:32] LABS: Collection Type, Urine Clean Catch
--- NOTE | 2024-01-30 16:34 | PC.NURSE ---
preliminary report given to md martha thomas states to send pt to ED. will call ED MD. report handed off to amy lacy rn supplemental.
[2024-01-30 16:37] LABS: Basophils # (Auto) 0.1 Thou/mm3 (0.0-0.2); Basophils % (Auto) 0 % (0-2.5); Eosinophils # (Auto) 0.4 Thou/mm3 (0.0-0.5); Eosinophils % (Auto) 2 % (0-10); Hematocrit 34.4 % (36.0-46.0); Hemoglobin 11.2 g/dL (12.0-16.0); Immature Granulocytes % (Auto) 1 % (0-0); Immature Granulocytes Auto 0.11 Thou/mm3 (0.00-0.00); Lymphocytes # (Auto) 2.2 Thou/mm3 (1.0-4.8); Lymphocytes % (Auto) 14 % (10-50); Mean Corpuscular HGB Conc 32.6 g/dl (31.0-37.0); Mean Corpuscular Hemoglobin 26.4 pg (25.0-35.0); Mean Corpuscular Volume 81 fL (80-100); Monocytes % (Auto) 6 % (0-12); Neutrophils # (Auto) 12.4 Thou/mm3 (1.8-7.7); Neutrophils % (Auto) 77 % (37-80); Nucleated Red Blood Cell % 0 /100 WBC (0); Platelet Count 507 Thou/mm3 (140-440); Red Blood Count 4.25 Miln/mm3 (4.00-5.20); White Blood Count 16.1 Thou/mm3 (3.6-11.0)
[2024-01-30 16:44] LABS: Beta Hydroxybutyrate 1.2 mmol/L (<0.6)
--- NOTE | 2024-01-30 16:45 | PC.NURSE ---
patient presents to ER with complaints of nausea and vomitting beatriz
[2024-01-30 17:00] LABS: Bilirubin,Urine Negative (Negative); Blood,Urine Negative (Negative); Clarity,Urine Clear (Clear/Hazy); Color,Urine Yellow (Lt Yel-Yel); Glucose, Urine 4+ (Negative); Ketones,Urine 1+ (Negative); Leukocyte Esterase,Urine Negative (Negative); Nitrite,Urine Negative (Negative); Protein,Urine 1+ (Neg - Trace); RBC,Urine 1 /hpf (0-3); Specific Gravity,Urine 1.036 (1.001-1.035); Squamous Epithelial Cell,Urine 1 /hpf (0-5); Urobilinogen,Urine Negative mg/dL (0.0-1.0); WBC,Urine 5 /hpf (0-5)
--- NOTE | 2024-01-30 17:00 | PC.NURSE ---
patient here for complaints of abdominal pain 7/10 nausea and vomitting that started this morning at around 0600
[2024-01-30 17:12] LABS: Alanine Aminotransferase < 7 U/L (10-49); Albumin, Serum 4.8 gm/dL (3.5-5.0); Albumin/Globulin Ratio 1.3 (1.2-2.2); Alkaline Phosphatase 135 U/L (46-116); Anion Gap 11 (7-16); Aspartate Amino Transferase 13 U/L (0-34); BUN/Creatinine Ratio 14 Ratio (12-20); Bilirubin,Total 0.3 mg/dL (0.3-1.2); Blood Urea Nitrogen 10 mg/dL (9-23); Calcium 9.9 mg/dL (8.3-10.6); Calcium (Corrected) 9.9 mg/dL (8.5-10.1); Chloride 99 mMol/L (98-107); Creatinine (Component) 0.7 mg/dL (0.6-1.3); Estimated Creatinine Clearance 132.8 mL/min (>60); Globulin 3.6 gm/dL (2.3-3.5); Glucose 141 mg/dL (74-106); Osmolality,Calculated 263 (275-295); Potassium 3.7 mMol/L (3.4-5.1); Sodium 131 mMol/L (136-145); Total Protein 8.4 gm/dL (5.7-8.2); eGFR > 60 See Note
--- NOTE | 2024-01-30 17:33 | EDNOTE_ITS ---
ED General RME/HPI General Chief complaint: Abdominal Pain Stated complaint: LABOR EVAL Time Seen by Provider: 01/30/24 17:27 Arrival date/time: 01/30/24 16:43 CC: Nausea vomiting with diabetes HPI patient is a G4, P1 at 19 weeks who was referred by Dr. Medina for further medical management. The patient states she has had persistent nausea with recurrent vomiting. Patient is awake alert oriented denies any abdominal pain cramping vaginal discharge or vaginal bleeding. Related Data Home Medications ?Medication ?Instructions ?Recorded ?Confirmed aspirin 81 mg tablet,delayed 81 mg PO QDAY 01/30/24 01/30/24 release ferrous sulfate 325 mg (65 mg 325 mg PO QDAY 01/30/24 01/30/24 iron) tablet Previous Rx's ?Medication ?Instructions ?Recorded blood-glucose sensor (FreeStyle #1 ea 05/19/23 Rickey 3 Sensor device) levothyroxine 112 mcg tablet 112 mcg PO ACBR #30 tabs 12/16/23 multivitamin with folic acid 400 1 tab PO DAILY #30 tabs 12/16/23 mcg tablet (Tab-A-Juanita) insulin glargine U-300 conc 300 40 unit (0.1333 mL) subcut ONCE PM 12/25/23 unit/mL (1.5 mL) subcutaneous pen #4.5 mL (Toujeo SoloStar U-300 Insulin) insulin lispro 100 unit/mL 8 unit (0.08 mL) subcut TID #15 mL 12/25/23 subcutaneous pen (Humalog KwikPen (U-100) Insulin) Allergies Allergy/AdvReac Type Severity Reaction Status Date / Time No Known Allergies Allergy Verified 01/30/24 16:35 Review of Systems Review of Systems Narrative Review of Systems: GEN: No fever, no chills, no weight loss EYES: No discharge, no visual changes, no pain HEENT: No ear pain, no congestion, no sore throat PULM: No shortness of breath, no cough, no congestion CV: No chest pain, no dyspnea on exertion, no palpitations GI: + nausea, + vomiting, no diarrhea, no pain, no constipation : No frequency, no urgency, no dysuria MUSC/SKEL: No joint pain, no back pain SKIN: No rash PSYCH: No hallucinations, no depression HEME/LYMPH: No easy bleeding or bruising tendencies NEURO: No weakness, no headache Past Medical History Past Medical History NEUROLOGIC: Negative Neurological Disorders, Meningitis, Seizures or Migraine CARDIAC: Negative Cardiac Disorders, Congestive Heart Failure, Edema or Hypertension RESPIRATORY: Negative Chronic Obstructive Pulmonary Disease (COPD), Asthma or Emphysema GASTROINTESTINAL: Positive Gastrointestinal Disorders and Obesity; Negative Hepatitis, Pancreatitis, Gall Bladder Disease or Gastroesophageal Reflux Disease GENITOURINARY: Negative Genitourinary Disorders, Renal Disease or Kidney Stones REPRODUCTIVE: Positive Previous Pregnancies; Negative Pelvic Inflammatory Disease MUSCULOSKELETAL: Negative Musculoskeletal Disorders, Marfan's Syndrome, Degenerative Disk Disease or Gout ENDOCRINE: Positive Endocrine Disorders, Diabetes Mellitus Type 1 and Hypothyroidism; Negative Diabetes Mellitus Type 2 HEMATOLOGIC: Negative Blood Disorders, Anemia or Sickle Cell Disease PSYCHO/SOCIAL: Positive Recreational Drug Use, Depression and Anxiety; Negative Behavior Problems OTHER HISTORY: Positive Hospitalization and Chicken Pox; Negative Autoimmune Disease, Down Syndrome, Developmental Delay, Shingles, Falls, Blood Transfusions, Blood Transfusion Reaction, Anesthesia Reactions, Organ Transplant, Chemotherapy, Radiation Therapy, Hyperbaric Therapy, MRSA, VRSA, Vancomycin-Resistant Enterococci, Human Immunodeficiency Virus (HIV), Measles, Mumps, Rubella (Citizen Of [place] Measles), Pertussis, Clostridium Difficile or Cancer Family History FAMILY HISTORY: Positive Family Gastrointestinal Problems; Negative Family Psychiatric Problems, Family Respiratory Disorders, Family Cardiac Disorders, Family Cancer, Family Surgery or Family Anesthesia Reaction Surgical History SURGICAL: Positive Section; Negative Ear Surgery, Eye Surgery, Nose Surgery, Oral Surgery, Abdominal Surgery, Nephrectomy, Joint Replacement, Neurologic Surgery or Organ Transplant Social History SMOKING STATUS: Former smoker SECOND HAND EXPOSURE: No SUBSTANCE USE: crack/cocaine and opiates Travel History EBOLA RISK: No ED Exam Narrative Physical exam: [General: Obese uncomfortable but not in any acute distress Head normocephalic HEENT: Within acceptable limits Neck is supple nontender Chest equal chest rise nontender to palpation Respiratory: Clear to auscultation no wheezes crackles or rubs CV: Rate rhythm is regular no murmurs rubs or clicks Abdomen is distended secondary to body habitus soft nontender Back: No CVA tenderness no spinous process tenderness from cervical spine thoracic and lumbar spine Skin: Intact no petechiae rash induration ulceration or crepitus Extremities: Moving all extremity against resistance cap refill less than 2 seconds neurosensory intact Neuro: Awake alert oriented x3 Glascow coma 15 no focal deficits] Course Quality Measures none Orders Category Date Time Status Patient Condition Routine Admission 01/30/24 19:[address] in Observation Status Routine Admission 01/30/24 15:00 Active Activity as Tolerated Routine Care 01/30/24 19:35 Ordered Bedside Blood Glucose ACHS Care 01/30/24 19:34 Active Bedside Blood Glucose NOW Care 01/30/24 15:00 Completed Blood Cultures (Nursing) X2 PRN PRN Care 01/30/24 19:35 Active heart tone auscultation Q4H Care 01/30/24 19:34 Active Insert IV NOW Care 01/30/24 15:21 Completed Intake and Output QSHIFT Care 01/30/24 19:45 Ordered Notify provider NEEDED Care 01/30/24 19:35 Active EKG (ED Only) Routine Exams 01/30/24 17:49 Draft US OB >= 14 weeks Fetus Stat Exams 01/30/24 15:21 Completed Beta Hydroxybutyrate Stat Lab 01/30/24 16:00 Completed CBC AM DRAW Lab 01/31/24 05:06 Completed CBC AM DRAW Lab 02/01/24 05:00 Ordered CBC AM DRAW Lab 02/02/24 05:00 Ordered CBC Stat Lab 01/30/24 16:00 Completed Comprehensive Metabolic Panel AM DRAW Lab 01/31/24 05:06 Completed Comprehensive Metabolic Panel Stat Lab 01/30/24 16:00 Completed Glycohemoglobin w (eAG) AM DRAW Lab 01/31/24 05:06 Completed Iron Panel Routine Lab 01/31/24 05:06 Completed Magnesium AM DRAW Lab 01/31/24 05:06 Completed Magnesium AM DRAW Lab 02/01/24 05:00 Ordered Magnesium AM DRAW Lab 02/02/24 05:00 Ordered Renal Function Panel AM DRAW Lab 01/31/24 05:06 Completed Renal Function Panel AM DRAW Lab 02/01/24 05:00 Ordered Renal Function Panel AM DRAW Lab 02/02/24 05:00 Ordered TSH [Thyroid Stimulating Hormone] AM DRAW Lab 01/31/24 05:06 Completed UA [Urinalysis] Stat Lab 01/30/24 16:00 Completed Acetaminophen Tab [Tylenol Tab] Med 01/30/24 19:34 Active 650 mg PO Q6H PRN Acetaminophen Tab [Tylenol Tab] Med 01/30/24 19:21 Discontinued 650 mg PO X1 ONE Aspirin [Ecotrin] Med 01/31/24 09:00 Discontinued 81 mg PO QDAY Dextrose 50% Syr [D50w Syringe Abboject] Med 01/30/24 17:46 Active 50 ml IV Q15MIN PRN Docusate Sod [Colace] Med 01/31/24 09:00 Active 100 mg PO QDAY Ferrous Sulfate Med 01/31/24 09:00 Active 325 mg PO QDAY Glucagon Inj Med 01/30/24 17:46 Active 1 mg IM Q15MIN PRN INSULIN LISPRO (AdmeLOG) [HumaLOG] Med 01/31/24 07:30 Active See Protocol SC AC Insulin Glargine Inj [Lantus Inj] Med 01/30/24 21:00 Active 15 unit SC HS Levothyroxine Sodium [Synthroid] Med 01/31/24 06:00 Discontinued 112 mcg PO ACBR Metoclopramide Inj [Reglan Inj] Med 01/30/24 17:45 Discontinued 10 mg IVP Q6HR Metoclopramide Inj [Reglan Inj] Med 01/30/24 17:32 Discontinued 10 mg IVP X1 ONE Multivitamin Inj [Infuvite Inj] Med 01/30/24 19:41 Discontinued 10 ml IV X1 ONE Multivitamin. Med 01/31/24 09:00 Discontinued 1 tab PO DAILY Ondansetron Inj [Zofran Inj] Med 01/30/24 19:34 Active 4 mg IV Q6H PRN Ondansetron Inj [Zofran Inj] Med 01/30/24 15:39 Discontinued 4 mg IV X1 ONE Ondansetron Inj [Zofran Inj] Med 01/30/24 17:49 Discontinued 8 mg IV X1 ONE Pantoprazole Inj [Protonix Inj] Med 01/30/24 19:45 Active 40 mg IVP QDAY Promethazine Inj [Phenergan Inj] Med 01/30/24 19:40 Active 25 mg IM Q6HR PRN Promethazine Inj [Phenergan Inj] 25 mg Med 01/30/24 15:40 Discontinued Sodium Chloride 0.9% [Ns] 50 ml IV X1 Ringers Lactated 1000 ml [Lactated Ringers] 1,000 ml Med 01/30/24 17:45 Discontinued IV 999 mls/hr Sodium Chloride 0.45 % [Ns 0.45%] 1,000 ml Med 01/30/24 19:38 Active Pot Chl Additive [KCl Additive] 30 meq IV 100 mls/hr Sodium Chloride 0.9% 1000 ml [Ns] 1,000 ml Med 01/30/24 17:50 Discontinued IV 100 mls/hr Sodium Chloride 0.9% 1000 ml [Ns] 1,000 ml Med 01/30/24 15:30 Discontinued IV 125 mls/hr Sodium Chloride 0.9% 1000 ml [Ns] 1,000 ml Med 01/30/24 15:21 Discontinued IV 999 mls/hr Sodium Chloride 0.9% 1000 ml [Ns] 1,000 ml Med 01/30/24 17:41 Discontinued IV 999 mls/hr insulin glargine U-300 conc [Toujeo SoloStar U-300 Med 01/30/24 19:45 Discontinued Insulin] 40 unit SC ONCE PM insulin lispro [Humalog KwikPen Insulin] Med 01/30/24 22:00 Discontinued 8 unit SC TID Code Status Routine Oth 01/30/24 19:34 Ordered EKG (RT) Routine RT 01/30/24 17:49 Ordered Vital Signs Vital signs: Vital Signs Pulse Rate 107 H 01/30/24 15:08 Blood Pressure 103/68 01/30/24 15:08 [facility] Patient data External records reviewed:: [facility] previous records Clinical information provided by:: patient Social determinants that could affect healthcare access:: none Patient has the following chronic illnesses:: Diabetes, morbid obesity, How is presenting disease/condition affected by chronic disease/condition?: e xacerbated by Evaluation data The following diagnostics were reviewed and interpreted by me:: lab results and radiology exam(s) Lab and/or radiology exams considered but not ordered:: CBC shows a leukocytosis 16.1 with a stable anemia of 11, and elevated platelets CMP shows a sodium 131, glucose of 141 no other significant electrolyte imbalances renal impairment transaminitis or T. bili elevation. EKG performed at 1902 shows ventricular rate of 102 KS interval 138 QRS of 89 QTc of 413 this is sinus tachycardia. Interpretation Summary: Intractable nausea vomiting during Medications Medications considered but not ordered:: None Medication administrations:: Medication Administration History Acetaminophen (Acetaminophen 325 Mg Tablet) 650 mg PO Q6H PRN PRN Reason: Fever >101.5 Stop: 02/29/24 19:33 Aspirin (Aspirin Ec 81 Mg Tabec) 81 mg PO QDAY MATTHIEU Stop: 03/02/24 08:59 Dextrose (Dextrose 50%-Water Inj 50 Ml Syringe) 50 ml IV Q15MIN PRN PRN Reason: BG <50 OR BG <70 & pt unresponsive Stop: 02/29/24 17:45 Docusate Sodium (Docusate Sod 100 Mg Capsule) 100 mg PO QDAY [facility] Stop: 03/01/24 08:59 Last Admin: 01/31/24 08:10 Dose: Not Given Documented By: VINH Non-Admin Reason: Patient Refused Ferrous Sulfate (Ferrous Sulf 325 Mg Tablet) 325 mg PO QDAY [facility] Stop: 03/01/24 08:59 Last Admin: 01/31/24 08:10 Dose: Not Given Documented By: VINH Non-Admin Reason: Patient Refused Glucagon (Glucagon Inj 1 Mg Vial) 1 mg IM Q15MIN PRN PRN Reason: BG <70, and no IV access Potassium Chloride 30 meq/ (Sodium Chloride) 1,015 mls @ 100 mls/hr IV .Q10H9M [facility] Stop: 02/29/24 19:37 Last Admin: 01/31/24 08:09 Dose: 100 mls/hr Documented By: Infusion: 01/31/24 07:12 Dose: Infused Documented By: Admin: 01/30/24 21:03 Dose: 100 mls/hr Documented By: VITO Iron Sucrose 200 mg/ Sodium (Chloride) 110 mls @ 110 mls/hr IV QDAY [facility] Stop: 02/04/24 10:59 Insulin Glargine (Insulin Glargine (Lantus) 5 Unit/0.05 Ml (Per 5 Units)) 15 unit SC [facility] Stop: 02/29/24 20:59 Last Admin: 01/30/24 21:02 Dose: 15 unit Documented By: VITO Co-signed By: SE Insulin Human Lispro (Insulin Lispro (Admelog) 1 Unit/0.01 Ml Unit) 0 unit SC [facility]; Protocol Stop: 03/01/24 07:29 Last Admin: 01/31/24 08:00 Dose: 2 unit Documented By: VINH Co-signed By: DM Levothyroxine Sodium (Levothyroxine Sodium 125 Mcg Tablet) 125 mcg PO [facility] Stop: 03/02/24 05:59 Ondansetron HCl (Ondansetron Inj 2 Mg/Ml Inj 2 Ml) 4 mg IV Q6H PRN PRN Reason: NAUSEA OR VOMITING Stop: 02/29/24 19:33 Last Admin: 01/31/24 05:53 Dose: 4 mg Documented By: OMAR Pantoprazole Sodium (Pantoprazole Inj 40 Mg Vial) 40 mg IVP QDAY [facility] Stop: 02/29/24 19:44 Last Admin: 01/31/24 08:01 Dose: 40 mg Documented By: Admin: 01/30/24 21:03 Dose: 40 mg Documented By: VITO Promethazine HCl (Promethazine Inj 25 Mg/Ml Vial) 25 mg IM Q6HR PRN; Protocol PRN Reason: NAUSEA OR VOMITING Stop: 02/29/24 19:39 Last Admin: 01/31/24 08:01 Dose: 25 mg Documented By: Admin: 01/31/24 00:30 Dose: 25 mg Documented By: OMAR Discontinued Medications Acetaminophen (Acetaminophen 325 Mg Tablet) 650 mg PO X1 ONE Stop: 01/30/24 19:22 Last Admin: 01/31/24 01:01 Dose: Not Given Documented By: OMAR Non-Admin Reason: Patient Refused Aspirin (Aspirin Ec 81 Mg Tabec) 81 mg PO QDAY [facility] Stop: 03/01/24 08:59 Last Admin: 01/31/24 08:10 Dose: Not Given Documented By: VINH Non-Admin Reason: Patient Refused Sodium Chloride (Ns) 1,000 mls @ 999 mls/hr IV .Q1H1M ONE Stop: 01/30/24 16:21 Last Infusion: 01/30/24 17:11 Dose: Infused Documented By: Admin: 01/30/24 16:10 Dose: 999 mls/hr Documented By: AM Sodium Chloride (Ns) 1,000 mls @ 125 mls/hr IV .Q8H [facility] Stop: 01/29/25 15:29 Last Admin: 01/30/24 17:16 Dose: Not Given Documented By: DO Non-Admin Reason: Cancelled by Provider Promethazine HCl 25 mg/ Sodium (Chloride) 51 mls @ 2.5 mls/min IV X1 ONE; Protocol Stop: 01/30/24 16:00 Last Admin: 01/30/24 17:18 Dose: Not Given Documented By: DO Non-Admin Reason: Cancelled by Provider Sodium Chloride (Ns) 1,000 mls @ 999 mls/hr IV .Q1H1M ONE Stop: 01/30/24 18:41 Last Infusion: 01/30/24 19:13 Dose: Infused Documented By: Admin: 01/30/24 18:03 Dose: 999 mls/hr Documented By: EF Lactated Ringer's (Lactated Ringers) 1,000 mls @ 999 mls/hr IV .Q1H1M ONE Stop: 01/30/24 18:45 Last Admin: 01/30/24 19:08 Dose: Not Given Documented By: DO Non-Admin Reason: Cancelled by Provider Sodium Chloride (Ns) 1,000 mls @ 100 mls/hr IV .Q10H ONE Stop: 01/31/24 03:49 Last Admin: 01/30/24 21:18 Dose: Not Given Documented By: VITO Non-Admin Reason: Discontinued Levothyroxine Sodium (Levothyroxine Sodium 112 Mcg Tablet) 112 mcg PO ACBR MATTHIEU Stop: 03/01/24 05:59 Last Admin: 01/31/24 05:53 Dose: Not Given Documented By: OMAR Non-Admin Reason: Nausea Metoclopramide HCl (Metoclopramide Inj 5 Mg/Ml Vial 2 Ml) 10 mg IVP X1 ONE; Protocol Stop: 01/30/24 17:33 Last Admin: 01/30/24 17:59 Dose: Not Given Documented By: DO Non-Admin Reason: Patient Refused Metoclopramide HCl (Metoclopramide Inj 5 Mg/Ml Vial 2 Ml) 10 mg IVP Q6HR MATTHIEU; Protocol Stop: 02/29/24 17:44 Last Admin: 01/30/24 19:11 Dose: Not Given Documented By: VITO Non-Admin Reason: Cancelled by Provider Multivitamins (Multivitamins Tablet) 1 tab PO DAILY [facility] Stop: 03/01/24 08:59 Multivitamins/Minerals (Multivitamin Inj 10 Ml Vial) 10 ml IV X1 ONE Stop: 01/30/24 19:42 Last Admin: 01/30/24 21:02 Dose: 10 ml Documented By: VITO Non-Formulary Medication (Insulin Glargine U-300 Conc [Toujeo Solostar U-300 Insulin]) 40 unit SC ONCE PM [facility] Stop: 02/29/24 19:44 Non-Formulary Medication (Insulin Lispro [Humalog Kwikpen Insulin]) 8 unit SC TID MATTHIEU Stop: 02/29/24 21:59 Ondansetron HCl (Ondansetron Inj 2 Mg/Ml Inj 2 Ml) 4 mg IV X1 ONE; Protocol Stop: 01/30/24 15:40 Last Admin: 01/30/24 16:17 Dose: 4 mg Documented By: AM Ondansetron HCl (Ondansetron Inj 2 Mg/Ml Inj 2 Ml) 8 mg IV X1 ONE; Protocol Stop: 01/30/24 17:50 Last Admin: 01/30/24 18:04 Dose: 8 mg Documented By: EF None Consultations Consultation(s) initiated? (list below): No Diagnosis Differential Diagnosis ED Complaint MDM: Intractable vomiting electrolyte imbalances UTI Most likely diagnosis given after review of the tests above:: Intractable vomiting, Admission Indicated Admission indicated?: indicated Explain why admission is indicated or not indicated:: Further medical management Admission Request Was there a request for admission?: No Disposition Plan Disposition Plan: Admit Medical Decision Making Differential Diagnosis Differential Diagnosis: Intractable vomiting electrolyte imbalances UTI Lab Data 01/31/24 05:06 01/31/24 05:06 Labs: Lab Results 01/30/24 Range/Units 16:00 WBC 16.1 H (3.6-11.0) Thou/mm3 RBC 4.25 (4.00-5.20) Miln/mm3 Hgb 11.2 L (12.0-16.0) g/dL Hct 34.4 L (36.0-46.0) % MCV 81 (80-100) fL MCH 26.4 (25.0-35.0) pg MCHC 32.6 (31.0-37.0) g/dl RDW Std Deviation 49.0 H (36.4-46.3) fL Plt Count 507 H D (140-440) Thou/mm3 Neut % (Auto) 77 (37-80) % Lymph % (Auto) 14 (10-50) % Nicholas % (Auto) 6 (0-12) % Eos % (Auto) 2 (0-10) % Baso % (Auto) 0 (0-2.5) % Neut # (Auto) 12.4 H (1.8-7.7) Thou/mm3 Lymph # (Auto) 2.2 (1.0-4.8) Thou/mm3 Nicholas # (Auto) 1.0 H (0.0-0.8) Thou/mm3 Eos # (Auto) 0.4 (0.0-0.5) Thou/mm3 Baso # (Auto) 0.1 (0.0-0.2) Thou/mm3 Immature Gran # (Auto) 0.11 H (0.00-0.00) Thou/mm3 Absolute Nucleated RBC 0.00 (0.00-0.00) Thou/mm3 Immature Gran % 1 H (0-0) % Nucleated RBC % 0 (0) /100 WBC Sodium 131 L (136-145) mMol/L Potassium 3.7 (3.4-5.1) mMol/L Chloride 99 (98-107) mMol/L Carbon Dioxide 21.0 (20.0-31.0) mMol/L Anion Gap 11 (7-16) BUN 10 (9-23) mg/dL Creatinine 0.7 (0.6-1.3) mg/dL Estim Creat Clear Calc 132.8 (>60) mL/min eGFR > 60 (60 - ) See Note BUN/Creatinine Ratio 14 (12-20) Ratio Glucose 141 H (74-106) mg/dL Calculated Osmolality 263 L (275-295) Calcium 9.9 (8.3-10.6) mg/dL Corrected Calcium 9.9 (8.5-10.1) mg/dL Total Bilirubin 0.3 (0.3-1.2) mg/dL AST 13 (0-34) U/L ALT < 7 L (10-49) U/L Alkaline Phosphatase 135 H (46-116) U/L Total Protein 8.4 H (5.7-8.2) gm/dL Albumin 4.8 (3.5-5.0) gm/dL Globulin 3.6 H (2.3-3.5) gm/dL Albumin/Globulin Ratio 1.3 (1.2-2.2) Beta-Hydroxybutyrate/Acetoacetate 1.2 H (<0.6) mmol/L Ur Collection Type Clean Catch Urine Color Yellow (Lt Yel-Yel) Urine Clarity Clear (Clear/Hazy) Urine pH 7.0 (5.0-7.0) Ur Specific [place] 1.036 H (1.001-1.035) Urine Protein 1+ A (Neg - Trace) Urine Glucose (UA) 4+ A (Negative) Urine Ketones 1+ A (Negative) Urine Blood Negative (Negative) Urine Nitrite Negative (Negative) Urine Bilirubin Negative (Negative) Urine Urobilinogen (Auto) Negative (0.0-1.0) mg/dL Ur Leukocyte Esterase Negative (Negative) Urine RBC 1 (0-3) /hpf Urine WBC 5 (0-5) /hpf Ur Squamous Epith Cells 1 (0-5) /hpf Urine Bacteria None (None) Discharge Plan Plan Patient Disposition: Other Care w/in Hosp ([facility]) Patient condition on transfer: Stable Problem List Clinical Impression: Intractable vomiting with nausea PA/ALLIANCE CONSULTANT Supervising Physician PA/ALLIANCE CONSULTANT Supervising Physician: Natan Hamilton ENP
--- NOTE | 2024-01-30 17:49 | EKG_ITS ---
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
[2024-01-30] MEDS: ONDANSETRON INJ 2 MG/ML INJ 2 ML 8 MG IV (18:04)
--- NOTE | 2024-01-30 18:31 | ESCONSULT_ITS ---
HPI Data of Consult Requesting Physician: Natan Hamilton ENP Attending Provider: Dewey Oneil MD Primary Care Provider: Physician No Primary/Family Consult Narrative History of present illness: This is a 33-year-old female, G4, P1 at 19 weeks, with PMHx of type 1 diabetes, hypothyroidism, gastroparesis, history of DKA and drug abuse, presenting to ED with acute onset of intractable nausea and vomiting that started this morning. Patient was in her normal state of health until she started having abdominal cramps, nausea and vomiting this morning prior to coming into the emergency room. Symptoms not associated with eating, have not improved with conservative measures. Denies fever, chills, hemoptysis or hematemesis, GI bleed, vaginal bleed or discharge, headaches, seizures, loss of consciousness, visual disturbances, fall, chest pain, shortness of breath, recent tobacco or alcohol or drug use, sick exposure, or travel history. Patient states she is taking ASPIRIN for pain regularly and daily. She states she is also taking her medication, including INSULIN as prescribed daily. ED course: Afebrile, BP 103/68, HR 107, RR 16, satting 100% on room air 131, CR 0.7, GLUCOSE 141, no anion gap, ALP 135, hydroxybutyrate 1.2 WBC 16.1, Hgb 11.2, platelet 507 UA 1+ ketones, negative for UTI. U tox negative. EKG sinus tachycardia. Ultrasound: Viable intrauterine gestation cephalic presentation. ED started CLOPAMIDE, ONDANSETRON and PANTOPRAZOLE, gave 2L NS boluses. Hospitalist team was consulted to evaluate patient for possible DKA versus gastroparesis versus hyperemesis gravidarum and other potential causes of nausea/vomiting. Recommendations as below. PMHx: Type 1 diabetes, hypothyroidism, gastroparesis, history of DKA and drug abuse MEDS: ASPIRIN, FERROUS SULFATE, INSULIN, LEVOTHYROXINE, multivitamin with folate ALLERGIES: No lower energy SH: Previous history of drug use, denies current tobacco use/drug use/alcohol use. cc:: cc: Exam Vital Signs Temp Pulse Resp BP Pulse Ox O2 Del Method 98.5 F 87 20 148/89 H 100 Room Air 01/30/24 17:21 01/30/24 17:21 01/30/24 17:21 01/30/24 17:21 01/30/24 17:21 01/30/24 17:21 Narrative Exam GENERAL: Ill-appearing gravid female with mild distress 2/2 nausea. HEENT: NCAT.?QUAN. Oral mucosa is moist. Patent Nares NECK: Supple, nontender, no thyromegaly, no meningismus, no JVD, no step offs CHEST: Symmetrical, atraumatic, and with equal expansion, Nontender on palpation no deformity and no crepitus. CARDIOVASCULAR: Tachycardic, regular rhythm, no m/g/r LUNGS: CTAB, no w/r/r. Symmetrical chest rise. No intercostal subcostal retraction. ABDOMEN: Gravid, soft, flat, nontender. No guarding/rebound tenderness/masses. +BS EXTREMITIES: Nontender.? No edema/cyanosis.?Moves all 4 extremities well, with full ROM and good CSM. SKIN: Warm and dry, no jaundice/rashes. MSK: No lumbar or midline, no CVA, no paraspinal muscle spasm or tenderness. NEURO: COCHRAN x4, CN II-XII grossly intact.?No focal neurologic deficits. PSYCHIATRIC: Normal mood and affect, cooperative, no SI or HI or hallucinations. Results Labs 01/31/24 05:06 01/31/24 05:06 Labs: Short CBC 01/30/24 Range/Units 16:00 WBC 16.1 H (3.6-11.0) Thou/mm3 Hgb 11.2 L (12.0-16.0) g/dL Hct 34.4 L (36.0-46.0) % Plt Count 507 H D (140-440) Thou/mm3 BMP 01/30/24 16:00 Sodium 131 L Potassium 3.7 Chloride 99 Carbon Dioxide 21.0 BUN 10 Creatinine 0.7 Glucose 141 H Calcium 9.9 Liver Function 01/30/24 Range/Units 16:00 Total Bilirubin 0.3 (0.3-1.2) mg/dL AST 13 (0-34) U/L ALT < 7 L (10-49) U/L Alkaline Phosphatase 135 H (46-116) U/L Albumin 4.8 (3.5-5.0) gm/dL Urine 01/30/24 Range/Units 16:00 Urine Color Yellow (Lt Yel-Yel) Urine Clarity Clear (Clear/Hazy) Urine pH 7.0 (5.0-7.0) Ur Specific [place] 1.036 H (1.001-1.035) Urine Protein 1+ A (Neg - Trace) Urine Glucose (UA) 4+ A (Negative) Quality Measures Quality Measures none (Defer to primary team) Medications Home Medications and Allergies Home Medications ?Medication ?Instructions ?Recorded ?Confirmed ?Type aspirin 81 mg tablet,delayed 81 mg PO QDAY 01/30/24 01/30/24 History release ferrous sulfate 325 mg (65 mg 325 mg PO QDAY 01/30/24 01/30/24 History iron) tablet Allergies Allergy/AdvReac Type Severity Reaction Status Date / Time No Known Allergies Allergy Verified 01/30/24 16:35 Visit Medications Dextrose (Dextrose 50%-Water Inj 50 Ml Syringe) 50 ml IV Q15MIN PRN PRN Reason: BG <50 OR BG <70 & pt unresponsive Stop: 02/29/24 17:45 Glucagon (Glucagon Inj 1 Mg Vial) 1 mg IM Q15MIN PRN PRN Reason: BG <70, and no IV access Sodium Chloride (Ns) 1,000 mls @ 999 mls/hr IV .Q1H1M ONE Stop: 01/30/24 18:41 Last Admin: 01/30/24 18:03 Dose: 999 mls/hr Sodium Chloride (Ns) 1,000 mls @ 100 mls/hr IV .Q10H ONE Stop: 01/31/24 03:49 Insulin Glargine (Insulin Glargine (Lantus) 5 Unit/0.05 Ml (Per 5 Units)) 15 unit SC HS MATTHIEU Stop: 02/29/24 20:59 Insulin Human Lispro (Insulin Lispro (Admelog) 1 Unit/0.01 Ml Unit) 0 unit SC AC MATTHIEU; Protocol Stop: 03/01/24 07:29 Metoclopramide HCl (Metoclopramide Inj 5 Mg/Ml Vial 2 Ml) 10 mg IVP Q6HR MATTHIEU; Protocol Stop: 02/29/24 17:44 Ondansetron HCl (Ondansetron Inj 2 Mg/Ml Inj 2 Ml) 4 mg IV Q6H PRN; Protocol PRN Reason: nausea or vomiting Stop: 02/29/24 17:44 Discontinued Medications Sodium Chloride (Ns) 1,000 mls @ 999 mls/hr IV .Q1H1M ONE Stop: 01/30/24 16:21 Last Admin: 01/30/24 16:10 Dose: 999 mls/hr Sodium Chloride (Ns) 1,000 mls @ 125 mls/hr IV .Q8H MATTHIEU Stop: 01/29/25 15:29 Last Admin: 01/30/24 17:16 Dose: Not Given Promethazine HCl 25 mg/ Sodium (Chloride) 51 mls @ 2.5 mls/min IV X1 ONE; Protocol Stop: 01/30/24 16:00 Last Admin: 01/30/24 17:18 Dose: Not Given Lactated Ringer's (Lactated Ringers) 1,000 mls @ 999 mls/hr IV .Q1H1M ONE Stop: 01/30/24 18:45 Metoclopramide HCl (Metoclopramide Inj 5 Mg/Ml Vial 2 Ml) 10 mg IVP X1 ONE; Protocol Stop: 01/30/24 17:33 Last Admin: 01/30/24 17:59 Dose: Not Given Ondansetron HCl (Ondansetron Inj 2 Mg/Ml Inj 2 Ml) 4 mg IV X1 ONE; Protocol Stop: 01/30/24 15:40 Last Admin: 01/30/24 16:17 Dose: 4 mg Ondansetron HCl (Ondansetron Inj 2 Mg/Ml Inj 2 Ml) 8 mg IV X1 ONE; Protocol Stop: 01/30/24 17:50 Last Admin: 01/30/24 18:04 Dose: 8 mg Assessment & Plan Plan This is a 33-year-old female, G4, P1 at 19 weeks, with PMHx of type 1 diabetes, hypothyroidism, gastroparesis, history of DKA and drug abuse, presenting to ED with acute onset of intractable nausea and vomiting that started this morning. Hospitalist team was consulted for evaluation. We appreciate the consult, recommendations as below. Continue management per primary team, we will continue to follow peripherally. Please consult as needed. Acute nausea and vomiting Gravid female, G4, P1, 19-week gestation DDx: Hyperemesis gravidarum vs. gastroparesis vs. gastritis vs. GERD Presenting with 1 day of recurrent, intractable nausea and vomiting. Symptoms unrelated to food. No fever or chills. No chest pain or shortness of breath. No constipation or diarrhea. She has a standing history of gastroparesis likely related to uncontrolled diabetes. Patient also has history of GERD on home OMEPRAZOLE. No history of HF or cardiomyopathy. No signs of DKA: Normal anion gap. Elevated beta hydroxybutyrate likely 2/2 dehydration, anticipate improvement with fluids. ? Continue REGLAN 5 mg q.6 hours PRN, first-line ? Continue ZOFRAN 4 mg q.6 hours PRN, second line ? Follow-up EKG ? Continue 1 L bolus normal saline ? Continue maintenance NS at 125 cc an hour ? Continue OMEPRAZOLE 40 mg IV BID ? Continue ED if symptoms persist or worsen ? Continue replete electrolytes as needed ? Continue multivitamins with FOLIC ACID ? Consider abdominal ultrasound ? Advised against x-ray or CT unless absolutely necessary ? Discontinue NSAID use indefinitely ? Continue trending CBC and CMP ? Follow recommendations from gynecology Chronic iron deficiency anemia Hgb 11.2, near baseline No signs or symptoms of active bleed including vaginal bleed or GI bleed ? Continue FERROUS SULFATE 25 mg daily ? Continue trending CBC Type 1 diabetes, insulin-dependent, poorly controlled A1c 9.4 from 12/2023. Admission GLUCOSE 141. No signs of DKA as explained above. ? 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 Continue Accu-Cheks ? Continue INSULIN glargine 15 units HS ? Continue INSULIN sliding scale Hypothyroidism ? Continue home LEVOTHYROXINE 112 MCG AC BR ? Follow-up TSH and free T4, may need to adjust thyroid medications Leukocytosis Likely reactive in setting of nausea, vomiting, patient afebrile, less likely infection ? Daily CBC Patient case was discussed with attending, Dewey Oneil MD and senior residents Dr. Villavicencio and Dr. Avery. Adilson Villegas DO PGYI Attending Provider Attestation/Addendum I reviewed labs, imaging, EKG, home medications and prior available records. Face to face evaluation was performed by me. I have personally examined the patient and discussed assessment and plan with the IM team. I reviewed the resident note and agree with the plan with exceptions as below. Uncontrolled diabetes mellitus with hyperglycemia, insulin-dependent type 1 Intractable nausea and vomiting Second trimester , 21 weeks Morbid obesity Dyspepsia History of cocaine abuse Her intractable nausea/vomiting is likely from hyperemesis gravidarum versus peptic ulcer disease gastroparesis Start Reglan and Zofran IV hydration Monitor electrolytes and replete as needed Started the patient on long-acting Lantus plus sliding scale insulin. Monitor fingersticks. Counseled the patient regarding the importance of avoiding snacks Stop aspirin Avoid NSAIDs Start IV Protonix Follow-up CMP and CBC. Management of second trimester is as per primary team
[2024-01-30] MEDS: INSULIN GLARGINE (Lantus) 5 UNIT/0.05 ML (PER 5 UNITS) 15 UNIT SC (21:02)
[2024-01-30] MEDS: PANTOPRAZOLE INJ 40 MG VIAL IVP (21:03)
[2024-01-30] MEDS: SODIUM CHLORIDE 0.45% IV (21:03)
[2024-01-30] MEDS: POT CHL ADDITIVE IV (21:03)
[2024-01-31 00:09] VITALS: BMI 41.8
[2024-01-31 00:22] VITALS: BP 143/91; PULSE 108; RESP 19; TEMP 36.1; O2SAT 99
[2024-01-31] MEDS: PROMETHAZINE INJ 25 MG/ML VIAL IM ×3 (00:30→16:04)
[2024-01-31 04:00] VITALS: BP 131/83; PULSE 99; RESP 18; TEMP 36.1; O2SAT 97
--- NOTE | 2024-01-31 04:32 | ESHP_ITS ---
Documentation for date of: 01/31/24 OB Labor/Induct. HPI History of Present Illness : 2 Term pregnancies: 1 pregnancies: 0 Living children: 1 History of Abortions: Spontaneous and Elective: 0 History of sections: Yes (x2) History of present illness: This is a 33-year-old female, G4, P1 at 19 weeks 6days, with PMHx of type 1 diabetes, hypothyroidism, gastroparesis, history of DKA and drug abuse, presenting to ED with acute onset of intractable nausea and vomiting that started this morning. Patient initially presented to labor and delivery where a complete OB ultrasound was performed and then she was transferred down to the emergency room. Patient was in her normal state of health until she started having abdominal cramps, nausea and vomiting this morning prior to coming into the emergency room. Symptoms not associated with eating, have not improved with conservative measures. Denies fever, chills, hemoptysis or hematemesis, GI bleed, vaginal bleed or discharge, headaches, seizures, loss of consciousness, visual disturbances, fall, chest pain, shortness of breath, recent tobacco or alcohol or drug use, sick exposure, or travel history. Patient states she is taking ASPIRIN for pain regularly and daily. She states she is also taking her medication, including INSULIN as prescribed daily. She also has a history of frequent hospital visits for diabetic ketoacidosis. The ER team has ruled out ketosis and patient is now being treated for presumed hyperemesis gravidarum History of Present Adequate Care: Yes Past Medical History Surgical History SURGICAL: Positive Section (x2) Meds Home Medications and Allergies Home Medications ?Medication ?Instructions ?Recorded ?Confirmed ?Type aspirin 81 mg tablet,delayed 81 mg PO QDAY 01/30/24 01/30/24 History release ferrous sulfate 325 mg (65 mg 325 mg PO QDAY 01/30/24 01/30/24 History iron) tablet Allergies Allergy/AdvReac Type Severity Reaction Status Date / Time No Known Allergies Allergy Verified 01/30/24 16:35 OB Exam Physical Exam Vital signs: Temp Pulse Resp BP Pulse Ox O2 Del Method 97.0 F 99 18 131/83 H 97 Room Air 01/31/24 04:00 01/31/24 04:00 01/31/24 04:00 01/31/24 04:00 01/31/24 04:00 01/31/24 04:00 Constitutional Constitutional: no acute distress Routine HEENT Exam Head: Present normocephalic and atraumatic Eye: Present EOMI and PERRL ENT: Present mucous membranes moist Routine Neck Exam Neck: Present supple and trachea midline Routine Cardiovascular Exam Cardiovascular: Present RRR Routine Abdominal Exam Abdominal: Present soft and normoactive bowel sounds Routine Extremities Exam Extremities: Present full ROM Routine Skin Exam Skin: Present intact, dry and warm Routine Neurological Exam Neurological: Present alert, oriented X3 and CN II-XII intact Routine Psychiatric Exam Psychiatric: Present normal affect and normal thought process OB Results Labs 01/31/24 05:06 01/30/24 16:00 Labs: Short CBC 01/30/24 Range/Units 16:00 WBC 16.1 H (3.6-11.0) Thou/mm3 Hgb 11.2 L (12.0-16.0) g/dL Hct 34.4 L (36.0-46.0) % Plt Count 507 H D (140-440) Thou/mm3 BMP 01/30/24 16:00 Sodium 131 L Potassium 3.7 Chloride 99 Carbon Dioxide 21.0 BUN 10 Creatinine 0.7 Glucose 141 H Calcium 9.9 Liver Function 01/30/24 Range/Units 16:00 Total Bilirubin 0.3 (0.3-1.2) mg/dL AST 13 (0-34) U/L ALT < 7 L (10-49) U/L Alkaline Phosphatase 135 H (46-116) U/L Albumin 4.8 (3.5-5.0) gm/dL Urine 01/30/24 Range/Units 16:00 Urine Color Yellow (Lt Yel-Yel) Urine Clarity Clear (Clear/Hazy) Urine pH 7.0 (5.0-7.0) Ur Specific [place] 1.036 H (1.001-1.035) Urine Protein 1+ A (Neg - Trace) Urine Glucose (UA) 4+ A (Negative) OB Assessment & Plan Assessment and Plan (1) Intractable vomiting with nausea: Status: Acute Assessment and plan: Admit to inpatient status for fluid resuscitation and monitoring of symptoms Complete OB ultrasound reviewed in the chart, consistent with viable intrauterine at 19 weeks and 6 days Review at regular intervals Home medications reconciled. (2) Supervision of high risk , unspecified, second trimester: Status: Acute
[2024-01-31 05:46] LABS: Basophils # (Auto) 0.1 Thou/mm3 (0.0-0.2); Basophils % (Auto) 0 % (0-2.5); Eosinophils # (Auto) 0.2 Thou/mm3 (0.0-0.5); Eosinophils % (Auto) 1 % (0-10); Hematocrit 29.6 % (36.0-46.0); Hemoglobin 9.4 g/dL (12.0-16.0); Immature Granulocytes % (Auto) 1 % (0-0); Immature Granulocytes Auto 0.14 Thou/mm3 (0.00-0.00); Lymphocytes % (Auto) 18 % (10-50); Mean Corpuscular HGB Conc 31.8 g/dl (31.0-37.0); Mean Corpuscular Hemoglobin 26.3 pg (25.0-35.0); Mean Corpuscular Volume 83 fL (80-100); Monocytes # (Auto) 1.1 Thou/mm3 (0.0-0.8); Monocytes % (Auto) 6 % (0-12); Neutrophils # (Auto) 12.4 Thou/mm3 (1.8-7.7); Neutrophils % (Auto) 74 % (37-80); Nucleated Red Blood Cell % 0 /100 WBC (0); Platelet Count 449 Thou/mm3 (140-440); RDW Standard Deviation 50.4 fL (36.4-46.3); Red Blood Count 3.58 Miln/mm3 (4.00-5.20); White Blood Count 16.9 Thou/mm3 (3.6-11.0)
[2024-01-31] MEDS: ONDANSETRON INJ 2 MG/ML INJ 2 ML 4 MG IV ×3 (05:53→19:40)
[2024-01-31 06:18] LABS: Glucose Estimated Average 200 mg/dL (80-131); Hemoglobin A1C 8.6 % Hgb (4.8-6.0)
[2024-01-31 06:31] LABS: Alanine Aminotransferase 10 U/L (10-49); Albumin, Serum 3.8 gm/dL (3.5-5.0); Albumin/Globulin Ratio 1.4 (1.2-2.2); Alkaline Phosphatase 103 U/L (46-116); Anion Gap 11 (7-16); Aspartate Amino Transferase 10 U/L (0-34); BUN/Creatinine Ratio 12 Ratio (12-20); Bilirubin,Total 0.3 mg/dL (0.3-1.2); Blood Urea Nitrogen 7 mg/dL (9-23); Calcium (Corrected) 8.2 mg/dL (8.5-10.1); Carbon Dioxide 18.4 mMol/L (20.0-31.0); Chloride 102 mMol/L (98-107); Creatinine (Component) 0.6 mg/dL (0.6-1.3); Estimated Creatinine Clearance 154.9 mL/min (>60); Globulin 2.8 gm/dL (2.3-3.5); Glucose 197 mg/dL (74-106); Magnesium 1.7 mg/dL (1.6-2.6); Osmolality,Calculated 265 (275-295); Phosphorous 2.7 mg/dL (2.4-5.1); Sodium 131 mMol/L (136-145); Thyroid Stimulating Hormone 5.82 uIU/mL (0.55-4.78); Total Protein 6.6 gm/dL (5.7-8.2); eGFR > 60 See Note
[2024-01-31 06:44] LABS: Total Iron Binding Capacity 415 mcg/dL (250-425)
[2024-01-31 06:54] LABS: Iron 42 mcg/dL (50-170); Percent Iron Saturation 10 % (20-55); Unsaturated Iron Binding 373 (225-295)
[2024-01-31 08:00] VITALS: BP 118/75; PULSE 100; RESP 18; TEMP 36.7; O2SAT 100
[2024-01-31] MEDS: INSULIN LISPRO (AdmeLOG) 1 UNIT/0.01 ML UNIT SC ×3 (08:00→17:00)
[2024-01-31] MEDS: PANTOPRAZOLE INJ 40 MG VIAL IVP (08:01)
[2024-01-31] MEDS: POT CHL ADDITIVE IV ×2 (08:09→17:00)
[2024-01-31] MEDS: SODIUM CHLORIDE 0.45% IV ×2 (08:09→17:00)
--- NOTE | 2024-01-31 08:18 | PD.RESPRO ---
Documentation for date of: 01/31/24 Subjective Subjective Interval history: No acute overnight events. Still nauseous, episode of vomiting overnight and this morning. Not tolerating oral intake including fluids due to nausea. Abdominal pain, however improving. Denies fever, chills, headaches, chest pain, sob, cough, other GI or urinary symptoms. Exam Vital Signs Temp Pulse Resp BP Pulse Ox O2 Del Method 97.0 F 99 18 131/83 H 97 Room Air 01/31/24 04:00 01/31/24 04:00 01/31/24 04:00 01/31/24 04:00 01/31/24 04:00 01/31/24 04:00 Narrative Exam GENERAL: Ill-appearing gravid female with mild distress 2/2 nausea. HEENT: NCAT.?QUAN. Oral mucosa is moist. Patent Nares NECK: Supple, nontender, no thyromegaly, no meningismus, no JVD, no step offs CHEST: Symmetrical, atraumatic, and with equal expansion, Nontender on palpation no deformity and no crepitus. CARDIOVASCULAR: Tachycardic, regular rhythm, no m/g/r LUNGS: CTAB, no w/r/r. Symmetrical chest rise. No intercostal subcostal retraction. ABDOMEN: Gravid, soft, flat, nontender. No guarding/rebound tenderness/masses. +BS EXTREMITIES: Nontender.? No edema/cyanosis.?Moves all 4 extremities well, with full ROM and good CSM. SKIN: Warm and dry, no jaundice/rashes. MSK: No lumbar or midline, no CVA, no paraspinal muscle spasm or tenderness. NEURO: COCHRAN x4, CN II-XII grossly intact.?No focal neurologic deficits. PSYCHIATRIC: Normal mood and affect, cooperative, no SI or HI or hallucinations. Objective Labs 02/01/24 05:15 02/01/24 05:15 Labs: Laboratory Results - last 24 hr 01/30/24 01/31/24 16:00 05:06 WBC 16.1 H 16.9 H RBC 4.25 3.58 L Hgb 11.2 L 9.4 L Hct 34.4 L 29.6 L MCV 81 83 MCH 26.4 26.3 MCHC 32.6 31.8 RDW Std Deviation 49.0 H 50.4 H Plt Count 507 H D 449 H D Neut % (Auto) 77 74 Lymph % (Auto) 14 18 [place] % (Auto) 6 6 Eos % (Auto) 2 1 Baso % (Auto) 0 0 Neut # (Auto) 12.4 H 12.4 H Lymph # (Auto) 2.2 3.0 [place] # (Auto) 1.0 H 1.1 H Eos # (Auto) 0.4 0.2 Baso # (Auto) 0.1 0.1 Immature Gran # (Auto) 0.11 H 0.14 H Absolute Nucleated RBC 0.00 0.00 Immature Gran % 1 H 1 H Nucleated RBC % 0 0 Sodium 131 L 131 L Potassium 3.7 4.0 Chloride 99 102 Carbon Dioxide 21.0 18.4 L Anion Gap 11 11 BUN 10 7 L Creatinine 0.7 0.6 Estim Creat Clear Calc 132.8 154.9 eGFR > 60 > 60 BUN/Creatinine Ratio 14 12 Glucose [address] Glu mg/dL 200 H Hemoglobin A1c 8.6 H Calculated Osmolality 263 L 265 L Calcium 9.9 8.0 L D Corrected Calcium 9.9 8.2 L D Phosphorus 2.7 Magnesium 1.7 Iron 42 L TIBC 415 Iron Saturation 10 L Unsat Iron Binding 373 H Total Bilirubin 0.3 0.3 AST 13 10 ALT < 7 L 10 Alkaline Phosphatase 135 H 103 D Total Protein 8.4 H 6.6 Albumin 4.8 3.8 D Globulin 3.6 H 2.8 Albumin/Globulin Ratio 1.3 1.4 Beta-Hydroxybutyrate/Acetoacetate 1.2 H TSH 5.82 H Ur Collection Type Clean Catch Urine Color Yellow Urine Clarity Clear Urine pH 7.0 Ur Specific [place] 1.036 H Urine Protein 1+ A Urine Glucose (UA) 4+ A Urine Ketones 1+ A Urine Blood Negative Urine Nitrite Negative Urine Bilirubin Negative Urine Urobilinogen (Auto) Negative Ur Leukocyte Esterase Negative Urine RBC 1 Urine WBC 5 Ur Squamous Epith Cells 1 Urine Bacteria None Quality Measures Quality Measures none (Defer to primary team) Assessment & Plan Assessment Current Active Medications: Generic Name Dose Route Start Last Admin Trade Name Freq PRN Reason Stop Dose Admin Acetaminophen 650 mg 01/30/24 19:34 Acetaminophen 325 Mg Tablet PO 02/29/24 19:33 Q6H PRN Fever >101.5 Aspirin 81 mg 01/31/24 09:00 01/31/24 08:10 Aspirin Ec 81 Mg Tabec PO 03/01/24 08:59 Not Given QDAY MATTHIEU Dextrose 50 ml 01/30/24 17:46 Dextrose 50%-Water Inj 50 Ml Syringe IV 02/29/24 17:45 Q15MIN PRN BG <50 OR BG <70 & pt unresponsive Docusate Sodium 100 mg 01/31/24 09:00 01/31/24 08:10 Docusate Sod 100 Mg Capsule PO 03/01/24 08:59 Not Given QDAY MATTHIEU Ferrous Sulfate 325 mg 01/31/24 09:00 01/31/24 08:10 Ferrous Sulf 325 Mg Tablet PO 03/01/24 08:59 Not Given QDAY MATTHIEU Glucagon 1 mg 01/30/24 17:46 Glucagon Inj 1 Mg Vial IM Q15MIN PRN BG <70, and no IV access Potassium Chloride 30 meq/ 1,015 mls @ 100 mls/hr 01/30/24 19:38 01/31/24 08:09 Sodium Chloride IV 02/29/24 19:37 100 mls/hr .Q10H9M MATTHIEU Administration Insulin Glargine 15 unit 01/30/24 21:00 01/30/24 21:02 Insulin Glargine (Lantus) 5 Unit/0.05 Ml (Per 5 Units) SC 02/29/24 20:59 15 unit HS MATTHIEU Administration Insulin Human Lispro 0 unit 01/31/24 07:30 01/31/24 08:00 Insulin Lispro (Admelog) 1 Unit/0.01 Ml Unit SC 03/01/24 07:29 2 unit AC [facility] Administration Protocol Levothyroxine Sodium 112 mcg 01/31/24 06:00 01/31/24 05:53 Levothyroxine Sodium 112 Mcg Tablet PO 03/01/24 05:59 Not Given ACBR MATTHIEU Ondansetron HCl 4 mg 01/30/24 19:34 01/31/24 05:53 Ondansetron Inj 2 Mg/Ml Inj 2 Ml IV 02/29/24 19:33 4 mg Q6H PRN Administration NAUSEA OR VOMITING Pantoprazole Sodium 40 mg 01/30/24 19:45 01/31/24 08:01 Pantoprazole Inj 40 Mg Vial IVP 02/29/24 19:44 40 mg QDAY MATTHIEU Administration Promethazine HCl 25 mg 01/30/24 19:40 01/31/24 08:01 Promethazine Inj 25 Mg/Ml Vial IM 02/29/24 19:39 25 mg Q6HR PRN Administration NAUSEA OR VOMITING Protocol Plan This is a 33-year-old female, G4, P1 at 19 weeks, with PMHx of type 1 diabetes, hypothyroidism, gastroparesis, history of DKA and drug abuse, presenting to ED with acute onset of intractable nausea and vomiting that started the morning of admission. Hospitalist team was consulted for evaluation. We appreciate the consult, recommendations as below. Continue management per primary team, we will continue to follow peripherally. Please consult as needed. Acute nausea and vomiting Gravid female, G4, P1, 19-week gestation DDx: Hyperemesis gravidarum vs. gastroparesis vs. gastritis vs. GERD Presenting with 1 day of recurrent, intractable nausea and vomiting. Symptoms unrelated to food. No fever or chills. No chest pain or shortness of breath. No constipation or diarrhea. She has a standing history of gastroparesis likely related to uncontrolled diabetes. Patient also has history of GERD on home OMEPRAZOLE. No history of HF or cardiomyopathy. No signs of DKA: Normal anion gap. Elevated beta hydroxybutyrate likely 2/2 dehydration, anticipate improvement with fluids. EKG showed sinus tachycardia no acute ST changes. ? Recommended REGLAN 5 mg q.6 hours PRN, may be beneficial in settings of gastroparesis. ? Continue ZOFRAN 4 mg q.6 hours PRN, second line ? Continue PROMETHAZINE per primary team ? Continue 1 L bolus normal saline ? Continue maintenance NS at 125 cc an hour ? Continue OMEPRAZOLE 40 mg IV BID ? Continue ED if symptoms persist or worsen ? Continue replete electrolytes as needed ? Continue multivitamins with FOLIC ACID ? Consider abdominal ultrasound ? Advised against x-ray or CT unless absolutely necessary ? Continue trending CBC and CMP ? Follow recommendations from gynecology Chronic iron deficiency anemia Hgb 11.2, near baseline No signs or symptoms of active bleed including vaginal bleed or GI bleed ? Continue FERROUS SULFATE 325 mg daily ? Started VENOFER 5 days Venofir 5 days ? Continue trending CBC Type 1 diabetes, insulin-dependent, poorly controlled A1c 8.6 this visit. Admission GLUCOSE 141. No signs of DKA as explained above. Bedside GLUCOSE 235, we changed glargine from 15 HS to 10 BID ? Continue CHO consistent diet ? Continue Accu-Cheks ? Continue INSULIN glargine 10 BID units HS ? Continue INSULIN sliding scale Hypothyroidism TSH 5.8H ? Increase home LEVOTHYROXINE 112 to 125 MCG AC BR ? Pending free T4 Leukocytosis (stable) Likely reactive in setting of nausea, vomiting, patient afebrile, less likely infection ? Daily CBC Electrolyte abnormalities Hypocalcemia, corrected calcium 8.2 > 8.4, asymptomatic, continue to monitor Patient case was discussed with attending, Dewey Oneil MD and senior residents Dr. Villavicencio and Dr. Avery. Adilson Villegas DO PGYI Attending Provider Attestation/Addendum I reviewed labs, imaging, EKG, home medications and prior available records. Face to face evaluation was performed by me. I have personally examined the patient and discussed assessment and plan with the IM team. I reviewed the resident note and agree with the plan with exceptions as below. Uncontrolled diabetes mellitus with hyperglycemia, insulin-dependent type 1 Intractable nausea and vomiting Second trimester , 21 weeks Morbid obesity Dyspepsia History of cocaine abuse Her intractable nausea/vomiting is likely from hyperemesis gravidarum versus peptic ulcer disease gastroparesis Start Reglan and Zofran, switched to Phenergan and Zofran per primary team IV hydration Monitor electrolytes and replete as needed Started the patient on long-acting Lantus plus sliding scale insulin. Adjust based on the future fingersticks. Monitor fingersticks. Avoid snacks. Low carb consistent diet. Counseled the patient regarding the importance of avoiding snacks Stop aspirin for few days Avoid NSAIDs Start IV Protonix 40 mg daily. Outpatient follow-up with GI for EGD after delivery. Follow-up CMP and CBC. Management of second trimester is as per primary team
[2024-01-31] MEDS: IRON SUCROS CPLX INJ 200 MG in SODIUM CHLORIDE 0.9% 100 ML 110 MG IV (11:42)
[2024-01-31 12:00] VITALS: BP 138/80; PULSE 101; RESP 18; TEMP 36.2; O2SAT 99
[2024-01-31 12:50] LABS: Albumin, Serum 3.8 gm/dL (3.5-5.0); Anion Gap 10 (7-16); BUN/Creatinine Ratio 10 Ratio (12-20); Blood Urea Nitrogen 6 mg/dL (9-23); Calcium 8.2 mg/dL (8.3-10.6); Calcium (Corrected) 8.4 mg/dL (8.5-10.1); Carbon Dioxide 18.5 mMol/L (20.0-31.0); Chloride 101 mMol/L (98-107); Creatinine (Component) 0.6 mg/dL (0.6-1.3); Estimated Creatinine Clearance 154.9 mL/min (>60); Glucose 201 mg/dL (74-106); Osmolality,Calculated 262 (275-295); Phosphorous 2.6 mg/dL (2.4-5.1); Potassium 4.2 mMol/L (3.4-5.1); Sodium 129 mMol/L (136-145); eGFR > 60 See Note
[2024-01-31 16:00] VITALS: BP 135/87; PULSE 99; RESP 18; TEMP 36.2; O2SAT 97
[2024-01-31 20:00] VITALS: BP 109/80; PULSE 98; RESP 16; TEMP 36.2; O2SAT 97
[2024-01-31] MEDS: NORTRIPTYLINE HCL 25 MG CAPSULE PO (20:34)
[2024-01-31] MEDS: INSULIN GLARGINE (Lantus) 5 UNIT/0.05 ML (PER 5 UNITS) 10 UNIT SC (20:44)
[2024-02-01] VITALS: BP 98/77; PULSE 97; RESP 15; TEMP 36.1; O2SAT 97
[2024-02-01] MEDS: PROMETHAZINE INJ 25 MG/ML VIAL IM (00:05)
[2024-02-01 04:00] VITALS: BP 121/79; PULSE 92; RESP 16; TEMP 36.1; O2SAT 97
[2024-02-01] MEDS: POT CHL ADDITIVE IV ×2 (04:29→15:11)
[2024-02-01] MEDS: SODIUM CHLORIDE 0.45% IV ×2 (04:29→15:11)
[2024-02-01] MEDS: ONDANSETRON INJ 2 MG/ML INJ 2 ML 4 MG IV ×2 (05:46→12:57)
[2024-02-01 06:02] LABS: Basophils # (Auto) 0.1 Thou/mm3 (0.0-0.2); Basophils % (Auto) 0 % (0-2.5); Eosinophils # (Auto) 0.1 Thou/mm3 (0.0-0.5); Eosinophils % (Auto) 1 % (0-10); Hematocrit 29.2 % (36.0-46.0); Hemoglobin 9.5 g/dL (12.0-16.0); Immature Granulocytes % (Auto) 2 % (0-0); Immature Granulocytes Auto 0.27 Thou/mm3 (0.00-0.00); Lymphocytes % (Auto) 19 % (10-50); Mean Corpuscular HGB Conc 32.5 g/dl (31.0-37.0); Mean Corpuscular Hemoglobin 26.5 pg (25.0-35.0); Mean Corpuscular Volume 82 fL (80-100); Monocytes # (Auto) 1.1 Thou/mm3 (0.0-0.8); Monocytes % (Auto) 7 % (0-12); Neutrophils # (Auto) 11.4 Thou/mm3 (1.8-7.7); Neutrophils % (Auto) 71 % (37-80); Nucleated Red Blood Cell % 0 /100 WBC (0); Platelet Count 466 Thou/mm3 (140-440); RDW Standard Deviation 50.3 fL (36.4-46.3); Red Blood Count 3.58 Miln/mm3 (4.00-5.20)
[2024-02-01 06:23] LABS: Albumin, Serum 3.5 gm/dL (3.5-5.0); Anion Gap 10 (7-16); BUN/Creatinine Ratio 12 Ratio (12-20); Blood Urea Nitrogen 6 mg/dL (9-23); Calcium 8.5 mg/dL (8.3-10.6); Calcium (Corrected) 8.9 mg/dL (8.5-10.1); Carbon Dioxide 18.4 mMol/L (20.0-31.0); Chloride 101 mMol/L (98-107); Creatinine (Component) 0.5 mg/dL (0.6-1.3); Estimated Creatinine Clearance 185.9 mL/min (>60); Free T4 (Free Thyroxine) 1.04 ng/dL (0.89-1.76); Glucose 180 mg/dL (74-106); Magnesium 1.9 mg/dL (1.6-2.6); Osmolality,Calculated 261 (275-295); Phosphorous 2.2 mg/dL (2.4-5.1); Potassium 4.3 mMol/L (3.4-5.1); Sodium 129 mMol/L (136-145); eGFR > 60 See Note
[2024-02-01] MEDS: INSULIN LISPRO (AdmeLOG) 1 UNIT/0.01 ML UNIT SC ×3 (07:33→17:37)
--- NOTE | 2024-02-01 07:53 | ESPR_ITS ---
Documentation for date of: 02/01/24 Subjective Subjective Interval history: No acute overnight events. Abdominal pain, nausea and vomiting have improved since yesterday. Although patient still feels nauseous and dizzy with standing. Still not tolerating oral intake including fluids. We have ordered GLUCERNA. Complains of constipation, no BMs for 2 days. We added bowel regiment, gave Fleet enema. Denies fever, chills, headaches, chest pain, sob, cough, other GI or urinary symptoms. Exam Vital Signs Temp Pulse Resp BP Pulse Ox O2 Del Method 97.0 F 92 16 121/79 97 Room Air 02/01/24 04:00 02/01/24 04:00 02/01/24 04:00 02/01/24 04:00 02/01/24 04:00 02/01/24 04:00 Narrative Exam GENERAL: Ill-appearing gravid female with mild distress 2/2 nausea. HEENT: NCAT.?QUAN. Oral mucosa is moist. Patent Nares NECK: Supple, nontender, no thyromegaly, no meningismus, no JVD, no step offs CHEST: Symmetrical, atraumatic, and with equal expansion, Nontender on palpation no deformity and no crepitus. CARDIOVASCULAR: Tachycardic, regular rhythm, no m/g/r LUNGS: CTAB, no w/r/r. Symmetrical chest rise. No intercostal subcostal retraction. ABDOMEN: Gravid, soft, flat, nontender. No guarding/rebound tenderness/masses. +BS EXTREMITIES: Nontender.? No edema/cyanosis.?Moves all 4 extremities well, with full ROM and good CSM. SKIN: Warm and dry, no jaundice/rashes. MSK: No lumbar or midline, no CVA, no paraspinal muscle spasm or tenderness. NEURO: COCHRAN x4, CN II-XII grossly intact.?No focal neurologic deficits. PSYCHIATRIC: Normal mood and affect, cooperative, no SI or HI or hallucinations. Objective Labs 02/02/24 05:31 02/02/24 05:31 Labs: Laboratory Results - last 24 hr 01/31/24 02/01/24 12:16 05:15 WBC 16.0 H RBC 3.58 L Hgb 9.5 L Hct 29.2 L MCV 82 MCH 26.5 MCHC 32.5 RDW Std Deviation 50.3 H Plt Count 466 H Neut % (Auto) 71 Lymph % (Auto) 19 [place] % (Auto) 7 Eos % (Auto) 1 Baso % (Auto) 0 Neut # (Auto) 11.4 H Lymph # (Auto) 3.0 [place] # (Auto) 1.1 H Eos # (Auto) 0.1 Baso # (Auto) 0.1 Immature Gran # (Auto) 0.27 H Absolute Nucleated RBC 0.00 Immature Gran % 2 H Nucleated RBC % 0 Sodium 129 L 129 L Potassium 4.2 4.3 Chloride 101 101 Carbon Dioxide 18.5 L 18.4 L Anion Gap 10 10 BUN 6 L 6 L Creatinine 0.6 0.5 L Estim Creat Clear Calc 154.9 185.9 eGFR > 60 > 60 BUN/Creatinine Ratio 10 L 12 Glucose 201 H 180 H Calculated Osmolality 262 L 261 L Calcium 8.2 L 8.5 Corrected Calcium 8.4 L 8.9 Phosphorus 2.6 2.2 L Magnesium 1.9 Albumin 3.8 3.5 Free T4 1.04 Quality Measures Quality Measures none Assessment & Plan Assessment Current Active Medications: Generic Name Dose Route Start Last Admin Trade Name Freq PRN Reason Stop Dose Admin Acetaminophen 650 mg 01/30/24 19:34 Acetaminophen 325 Mg Tablet PO 02/29/24 19:33 Q6H PRN Fever >101.5 Aspirin 81 mg 02/01/24 09:00 Aspirin Ec 81 Mg Tabec PO 03/02/24 08:59 QDAY [facility] Dextrose 50 ml 01/30/24 17:46 Dextrose 50%-Water Inj 50 Ml Syringe IV 02/29/24 17:45 Q15MIN PRN BG <50 OR BG <70 & pt unresponsive Docusate Sodium 100 mg 01/31/24 09:00 01/31/24 08:10 Docusate Sod 100 Mg Capsule PO 03/01/24 08:59 Not Given QDAY [facility] Ferrous Sulfate 325 mg 01/31/24 09:00 01/31/24 08:10 Ferrous Sulf 325 Mg Tablet PO 03/01/24 08:59 Not Given QDAY [facility] Glucagon 1 mg 01/30/24 17:46 Glucagon Inj 1 Mg Vial IM Q15MIN PRN BG <70, and no IV access Potassium Chloride 30 meq/ 1,015 mls @ 100 mls/hr 01/30/24 19:38 02/01/24 04:29 Sodium Chloride IV 02/29/24 19:37 100 mls/hr .Q10H9M MATTHIEU Administration Iron Sucrose 200 mg/ Sodium 110 mls @ 110 mls/hr 01/31/24 11:00 01/31/24 11:42 Chloride IV 02/04/24 10:59 110 mls/hr QDAY MATTHIEU Administration Insulin Glargine 10 unit 01/31/24 21:00 01/31/24 20:44 Insulin Glargine (Lantus) 5 Unit/0.05 Ml (Per 5 Units) SC 03/01/24 20:59 10 unit BID MATTHIEU Administration Insulin Human Lispro 0 unit 01/31/24 07:30 02/01/24 07:33 Insulin Lispro (Admelog) 1 Unit/0.01 Ml Unit SC 03/01/24 07:29 2 unit AC MATTHIEU Administration Protocol Levothyroxine Sodium 125 mcg 02/01/24 06:00 02/01/24 05:45 Levothyroxine Sodium 125 Mcg Tablet PO 03/02/24 05:59 Not Given ACBR MATTHIEU Nortriptyline HCl 25 mg 01/31/24 21:00 01/31/24 20:34 Nortriptyline Hcl 25 Mg Capsule PO 03/01/24 20:59 25 mg HS MATTHIEU Administration Ondansetron HCl 4 mg 01/30/24 19:34 02/01/24 05:46 Ondansetron Inj 2 Mg/Ml Inj 2 Ml IV 02/29/24 19:33 4 mg Q6H PRN Administration NAUSEA OR VOMITING Pantoprazole Sodium 40 mg 01/30/24 19:45 01/31/24 08:01 Pantoprazole Inj 40 Mg Vial IVP 02/29/24 19:44 40 mg QDAY MATTHIEU Administration Promethazine HCl 25 mg 01/30/24 19:40 02/01/24 00:05 Promethazine Inj 25 Mg/Ml Vial IM 02/29/24 19:39 25 mg Q6HR PRN Administration NAUSEA OR VOMITING Protocol Plan This is a 33-year-old female, G4, P1 at 19 weeks, with PMHx of type 1 diabetes, hypothyroidism, gastroparesis, history of DKA and drug abuse, presenting to ED with acute onset of intractable nausea and vomiting that started the morning of admission. Hospitalist team was consulted for evaluation. We appreciate the consult, recommendations as below. Continue management per primary team, we will continue to follow peripherally. Please consult as needed. Vital stable WBC 16 stable, Hgb 9.5 stable, platelet 466 improving Sodium 129, stable. Phosphorus 2.2 given BG 203, gave 1x 5 units, changed to home dose 15 BID Acute nausea and vomiting Gravid female, G4, P1, 19-week gestation Constipation (new) DDx: Hyperemesis gravidarum vs. gastroparesis vs. gastritis vs. GERD Presenting with 1 day of recurrent, intractable nausea and vomiting. Symptoms unrelated to food. No fever or chills. No chest pain or shortness of breath. No constipation or diarrhea. She has a standing history of gastroparesis likely related to uncontrolled diabetes. Patient also has history of GERD on home OMEPRAZOLE. No history of HF or cardiomyopathy. No signs of DKA: Normal anion gap. Elevated beta hydroxybutyrate likely 2/2 dehydration, anticipate improvement with fluids. EKG showed sinus tachycardia no acute ST changes. ? Recommended REGLAN 5 mg q.6 hours PRN, may be beneficial in settings of gastroparesis. ? Continue ZOFRAN 4 mg q.6 hours PRN, second line ? Continue PROMETHAZINE per primary team ? Continue 1 L bolus normal saline ? Continue maintenance NS at 125 cc an hour ? Continue OMEPRAZOLE 40 mg IV BID ? Continue ED if symptoms persist or worsen ? Continue replete electrolytes as needed ? Continue multivitamins with FOLIC ACID ? Added BISACODYL suppository PRN ? Added DOCUSATE 100 mg daily ? Added MIRALAX q. day ? Gave Fleet enema 1 time ? Consider abdominal ultrasound ? Advised against x-ray or CT unless absolutely necessary ? Continue trending CBC and CMP ? Follow recommendations from gynecology Chronic iron deficiency anemia Hgb 11.2, near baseline No signs or symptoms of active bleed including vaginal bleed or GI bleed ? Continue FERROUS SULFATE 325 mg daily ? Started VENOFER 5 days ? Continue trending CBC Type 1 diabetes, insulin-dependent, poorly controlled A1c 8.6 this visit. Admission GLUCOSE 141. No signs of DKA as explained above. Given BG 203, we gave 1x 5 units, changed to home dose 15 BID ? Continue CHO consistent diet ? Continue Accu-Cheks ? Continue INSULIN glargine 15 BID ? Continue INSULIN sliding scale Hypothyroidism TSH 5.8H ? Increase home LEVOTHYROXINE 112 to 125 MCG AC BR ? Pending free T4 Leukocytosis (stable) Likely reactive in setting of nausea, vomiting, patient afebrile, less likely infection ? Daily CBC Electrolyte abnormalities Hypocalcemia, corrected calcium 8.2 > 8.4, asymptomatic, continue to monitor Patient case was discussed with attending, Dewey Oneil MD and senior residents Dr. Villavicencio and Dr. Avery. Adilson Villegas DO PGYI Attending Provider Attestation/Addendum I reviewed labs, imaging, EKG, home medications and prior available records. Face to face evaluation was performed by me. I have personally examined the patient and discussed assessment and plan with the IM team. I reviewed the resident note and agree with the plan with exceptions as below. Uncontrolled diabetes mellitus with hyperglycemia, insulin-dependent type 1 Intractable nausea and vomiting Second trimester , 21 weeks Morbid obesity Dyspepsia History of cocaine abuse Her intractable nausea/vomiting is likely from hyperemesis gravidarum versus peptic ulcer disease gastroparesis Start Reglan and Zofran, switched to Phenergan and Zofran per primary team IV hydration Monitor electrolytes and replete as needed Started the patient on long-acting Lantus plus sliding scale insulin. Changed to 15 units twice daily. Adjust based on the future fingersticks. Monitor fingersticks. Avoid snacks. Low carb consistent diet. Counseled the patient regarding the importance of avoiding snacks Stop aspirin for 1 week Avoid NSAIDs Start IV Protonix 40 mg daily. Outpatient follow-up with GI for EGD after delivery. Follow-up CMP and CBC. Management of second trimester is as per primary team
[2024-02-01 08:00] VITALS: BP 122/85; PULSE 89; RESP 17; TEMP 36.2; O2SAT 98
[2024-02-01] MEDS: PANTOPRAZOLE INJ 40 MG VIAL IVP (09:10)
[2024-02-01] MEDS: DOCUSATE SOD 100 MG CAPSULE PO (09:10)
[2024-02-01] MEDS: ASPIRIN EC 81 MG TABEC PO (09:10)
[2024-02-01] MEDS: FERROUS SULF 325 MG TABLET PO (09:10)
[2024-02-01] MEDS: IRON SUCROS CPLX INJ 200 MG in SODIUM CHLORIDE 0.9% 100 ML 110 MG IV (09:11)
[2024-02-01] MEDS: INSULIN GLARGINE (Lantus) 5 UNIT/0.05 ML (PER 5 UNITS) SC (09:28)
[2024-02-01] MEDS: INSULIN GLARGINE (Lantus) 5 UNIT/0.05 ML (PER 5 UNITS) 10 UNIT SC (10:02)
[2024-02-01 12:00] VITALS: BP 131/84; PULSE 90; RESP 17; TEMP 36.2; O2SAT 98
--- NOTE | 2024-02-01 12:57 | PC.NURSE ---
pt was vomiting administered zofran
[2024-02-01] MEDS: bisacodyL 10 MG SUPP PR (15:10)
--- NOTE | 2024-02-01 15:40 | PC.SS ---
Patient is alert/oriented. Patient was admitted for hypetemesis. Patient is currently . She states this is her 4th child. Patient has no hx: of drug use or mental health. Patient has hx: DKA. Her physician's are all at [facility]. Dr. Carrero is pcp and Dr. Tijerina is OBGYN. Patient has positive support at home. No tox report. Patient d/c plan is to return home
[2024-02-01 16:00] VITALS: BP 130/78; PULSE 78; RESP 16; TEMP 36.3; O2SAT 96
[2024-02-01 20:00] VITALS: BP 107/70; PULSE 97; RESP 18; TEMP 36.1; O2SAT 97
[2024-02-01] MEDS: NORTRIPTYLINE HCL 25 MG CAPSULE PO (21:12)
[2024-02-01] MEDS: INSULIN GLARGINE (Lantus) 5 UNIT/0.05 ML (PER 5 UNITS) 15 UNIT SC (21:12)
[2024-02-02] VITALS: BP 91/55; PULSE 85; RESP 18; TEMP 36.6; O2SAT 98
[2024-02-02] MEDS: POT CHL ADDITIVE IV ×2 (01:14→11:55)
[2024-02-02] MEDS: SODIUM CHLORIDE 0.45% IV ×2 (01:14→11:55)
[2024-02-02 04:00] VITALS: BP 103/61; PULSE 80; RESP 18; TEMP 36.3; O2SAT 98
--- NOTE | 2024-02-02 04:11 | PC.NURSE ---
Dr tran notified of pt BP 91/[address] stated to notify him if systolic goes below 80. No new orders at this time.
[2024-02-02] MEDS: LEVOTHYROXINE SODIUM 125 MCG TABLET PO (05:23)
[2024-02-02 06:09] LABS: Basophils # (Auto) 0.1 Thou/mm3 (0.0-0.2); Basophils % (Auto) 1 % (0-2.5); Eosinophils # (Auto) 0.2 Thou/mm3 (0.0-0.5); Eosinophils % (Auto) 1 % (0-10); Hematocrit 27.6 % (36.0-46.0); Hemoglobin 8.9 g/dL (12.0-16.0); Immature Granulocytes % (Auto) 2 % (0-0); Immature Granulocytes Auto 0.28 Thou/mm3 (0.00-0.00); Lymphocytes # (Auto) 2.9 Thou/mm3 (1.0-4.8); Lymphocytes % (Auto) 21 % (10-50); Mean Corpuscular HGB Conc 32.2 g/dl (31.0-37.0); Mean Corpuscular Hemoglobin 26.9 pg (25.0-35.0); Mean Corpuscular Volume 83 fL (80-100); Monocytes # (Auto) 1.5 Thou/mm3 (0.0-0.8); Monocytes % (Auto) 11 % (0-12); Neutrophils % (Auto) 65 % (37-80); Nucleated Red Blood Cell # 0.06 Thou/mm3 (0.00-0.00); Nucleated Red Blood Cell % 0 /100 WBC (0); Platelet Count 408 Thou/mm3 (140-440); RDW Standard Deviation 51.7 fL (36.4-46.3); Red Blood Count 3.31 Miln/mm3 (4.00-5.20); White Blood Count 13.9 Thou/mm3 (3.6-11.0)
[2024-02-02 06:44] LABS: Albumin, Serum 3.4 gm/dL (3.5-5.0); Anion Gap 7 (7-16); BUN/Creatinine Ratio 7 Ratio (12-20); Blood Urea Nitrogen 5 mg/dL (9-23); Calcium 8.3 mg/dL (8.3-10.6); Calcium (Corrected) 8.8 mg/dL (8.5-10.1); Carbon Dioxide 21.3 mMol/L (20.0-31.0); Chloride 101 mMol/L (98-107); Creatinine (Component) 0.7 mg/dL (0.6-1.3); Estimated Creatinine Clearance 132.8 mL/min (>60); Glucose 271 mg/dL (74-106); Magnesium 1.8 mg/dL (1.6-2.6); Osmolality,Calculated 266 (275-295); Phosphorous 2.6 mg/dL (2.4-5.1); Potassium 4.5 mMol/L (3.4-5.1); Sodium 129 mMol/L (136-145); eGFR > 60 See Note
[2024-02-02] MEDS: INSULIN LISPRO (AdmeLOG) 1 UNIT/0.01 ML UNIT SC ×2 (07:21→11:49)
--- NOTE | 2024-02-02 07:53 | ESPR_ITS ---
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 Patient continues to have nausea and lightheadedness on standing. Medicine team is comanaging and helping with optimization of regimen. Doptone's have been within normal limits Exam Vital Signs Temp Pulse Resp BP Pulse Ox O2 Del Method 97.3 F 80 18 103/61 98 Room Air 02/02/24 04:00 02/02/24 04:00 02/02/24 04:00 02/02/24 04:00 02/02/24 04:00 02/02/24 00:00 Constitutional Constitutional: no acute distress Routine HEENT Exam Head: Present normocephalic and atraumatic Eye: Present EOMI and PERRL ENT: Present mucous membranes moist Routine Neck Exam Neck: Present supple and trachea midline Routine Respiratory Exam Respiratory: Present chest non-tender, lungs clear, normal breath sounds and no resp distress Routine Cardiovascular Exam Cardiovascular: Present RRR Routine Abdominal Exam Abdominal: Present soft and normoactive bowel sounds Routine Extremities Exam Extremities: Present full ROM Routine Skin Exam Skin: Present intact and dry Routine Neurological Exam Neurological: Present alert, oriented X3 and CN II-XII intact Routine Psychiatric Exam Psychiatric: Present normal affect and normal thought process Urinary Catheter Management Cath placed during this visit: no 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 - PN: Obj Data Labs 02/02/24 05:31 02/02/24 05:31 Labs: Laboratory Results - last 24 hr 02/02/24 05:31 WBC 13.9 H RBC 3.31 L Hgb 8.9 L Hct 27.6 L MCV 83 MCH 26.9 MCHC 32.2 RDW Std Deviation 51.7 H Plt Count 408 D Neut % (Auto) 65 Lymph % (Auto) 21 [place] % (Auto) 11 Eos % (Auto) 1 Baso % (Auto) 1 Neut # (Auto) 9.0 H Lymph # (Auto) 2.9 [place] # (Auto) 1.5 H Eos # (Auto) 0.2 Baso # (Auto) 0.1 Immature Gran # (Auto) 0.28 H Absolute Nucleated RBC 0.06 H Immature Gran % 2 H Nucleated RBC % 0 Sodium 129 L Potassium 4.5 Chloride 101 Carbon Dioxide 21.3 Anion Gap 7 BUN 5 L Creatinine 0.7 Estim Creat Clear Calc 132.8 eGFR > 60 BUN/Creatinine Ratio 7 L Glucose 271 H D Calculated Osmolality 266 L Calcium 8.3 Corrected Calcium 8.8 Phosphorus 2.6 Magnesium 1.8 Albumin 3.4 L 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 - A/P Assessment and plan (1) Intractable vomiting with nausea: Status: Acute Assessment and plan: Will continue current regimen. Review at regular intervals and possible discharge home tomorrow or the day after (2) Supervision of high risk , unspecified, second trimester: Status: Acute Assessment and plan: Normal Doptone's and ultrasound on admission Time Spent With Patient Time: Total time spent is greater than 50% in coordination of care (as documented) at patient's floor/unit and/or counseling patient: Time with patient: less than 15 minutes
--- NOTE | 2024-02-02 07:54 | ESPR_ITS ---
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 No chest pain or shortness of breath, continues to have nausea and lightheadedness on standing up. No obstetric complaints Exam Vital Signs Temp Pulse Resp BP Pulse Ox O2 Del Method 97.3 F 80 18 103/61 98 Room Air 02/02/24 04:00 02/02/24 04:00 02/02/24 04:00 02/02/24 04:00 02/02/24 04:00 02/02/24 00:00 Constitutional Constitutional: no acute distress Routine HEENT Exam Head: Present normocephalic and atraumatic Eye: Present EOMI and PERRL ENT: Present mucous membranes moist Routine Neck Exam Neck: Present supple and trachea midline Routine Respiratory Exam Respiratory: Present chest non-tender, lungs clear, normal breath sounds and no resp distress Routine Cardiovascular Exam Cardiovascular: Present RRR Routine Abdominal Exam Abdominal: Present soft and normoactive bowel sounds Routine Extremities Exam Extremities: Present full ROM Routine Skin Exam Skin: Present intact and dry Routine Neurological Exam Neurological: Present alert, oriented X3 and CN II-XII intact Routine Psychiatric Exam Psychiatric: Present normal affect and normal thought process Urinary Catheter Management Cath placed during this visit: no RIG WELDER - PN: Obj Data Labs 02/02/24 05:31 02/02/24 05:31 Labs: Laboratory Results - last 24 hr 02/02/24 05:31 WBC 13.9 H RBC 3.31 L Hgb 8.9 L Hct 27.6 L MCV 83 MCH 26.9 MCHC 32.2 RDW Std Deviation 51.7 H Plt Count 408 D Neut % (Auto) 65 Lymph % (Auto) 21 [place] % (Auto) 11 Eos % (Auto) 1 Baso % (Auto) 1 Neut # (Auto) 9.0 H Lymph # (Auto) 2.9 [place] # (Auto) 1.5 H Eos # (Auto) 0.2 Baso # (Auto) 0.1 Immature Gran # (Auto) 0.28 H Absolute Nucleated RBC 0.06 H Immature Gran % 2 H Nucleated RBC % 0 Sodium 129 L Potassium 4.5 Chloride 101 Carbon Dioxide 21.3 Anion Gap 7 BUN 5 L Creatinine 0.7 Estim Creat Clear Calc 132.8 eGFR > 60 BUN/Creatinine Ratio 7 L Glucose 271 H D Calculated Osmolality 266 L Calcium 8.3 Corrected Calcium 8.8 Phosphorus 2.6 Magnesium 1.8 Albumin 3.4 L RIG WELDER - A/P Assessment and plan (1) Intractable vomiting with nausea: Status: Acute Assessment and plan: Continue current regimen, glucose at goal. (2) Supervision of high risk , unspecified, second trimester: Status: Acute Assessment and plan: Normal Dopplers every 12 hours Time Spent With Patient Time: Total time spent is greater than 50% in coordination of care (as documented) at patient's floor/unit and/or counseling patient: Time with patient: less than 15 minutes
[2024-02-02 08:00] VITALS: BP 108/72; PULSE 94; RESP 17; TEMP 36.3; O2SAT 99
[2024-02-02] MEDS: SODIUM CHLORIDE 0.9% 1000 ML 1,000 ML 80 ML IV (08:14)
[2024-02-02] MEDS: POLYETHYLENE GLYCOL 17 GM PACKET PO (08:15)
[2024-02-02] MEDS: FERROUS SULF 325 MG TABLET PO (08:15)
[2024-02-02] MEDS: INSULIN GLARGINE (Lantus) 5 UNIT/0.05 ML (PER 5 UNITS) 22 UNIT SC (08:15)
[2024-02-02] MEDS: PANTOPRAZOLE INJ 40 MG VIAL IVP (08:15)
[2024-02-02] MEDS: DOCUSATE SOD 100 MG CAPSULE PO (08:15)
[2024-02-02 08:36] VITALS: BMI 41.8
[2024-02-02] MEDS: IRON SUCROS CPLX INJ 200 MG in SODIUM CHLORIDE 0.9% 100 ML 110 MG IV (11:48)
[2024-02-02 12:00] VITALS: BP 105/65; PULSE 89; RESP 18; TEMP 36.8; O2SAT 98
--- NOTE | 2024-02-02 13:51 | PD.RESPRO ---
Documentation for date of: 02/02/24 Subjective Subjective Interval history: Patient was seen and examined at bedside this AM. No acute events overnight. Patient tolerating diet now, she endorses improvement of nausea. She is able to tolerate full meals now, as a result blood sugars have been uptrending, now 180-250s We will titrate up on Insulin Glargine from 15 BID --> 22 BID and switch sliding scale from sensitive -> moderate Anticipate blood sugar correction over next 24 hours Started on IVF : NS @ 80 cc/h for moderate Hyponatremia Na 129 and low Osm Patient endorsed that she would like to be discharged, we informed her that primary team is still [employer] and discharge would be as per their final assessment. Exam Vital Signs Temp Pulse Resp BP Pulse Ox O2 Del Method 98.3 F 89 18 105/65 98 Room Air 02/02/24 12:00 02/02/24 12:00 02/02/24 12:00 02/02/24 12:00 02/02/24 12:00 02/02/24 12:00 Narrative Exam Constitutional Alert, oriented x4. Obese HEENT Vision grossly intact. Patent nares. Trachea midline. Respiratory Chest normal on inspection and clear to auscultation bilaterally. Cardiovascular S1 and S2 audible, RRR. No murmurs or carotid bruit. No gross JVD. Abdominal Soft and non tender to palpation in all quadrants. BS + Genitourinary No bladder tenderness, no flank pain. Normal to palpation. Musculoskeletal Extremities tone within normal limits. 1+ LE edema. Neurological CN II - XII grossly intact. Extremity motor and sensation grossly intact. Skin Warm, dry and intact. No apparent lesions. Psychiatric Patient has a good affect, is cooperative. Objective Labs 02/02/24 05:31 02/02/24 05:31 Labs: Laboratory Results - last 24 hr 02/02/24 05:31 WBC 13.9 H RBC 3.31 L Hgb 8.9 L Hct 27.6 L MCV 83 MCH 26.9 MCHC 32.2 RDW Std Deviation 51.7 H Plt Count 408 D Neut % (Auto) 65 Lymph % (Auto) 21 [place] % (Auto) 11 Eos % (Auto) 1 Baso % (Auto) 1 Neut # (Auto) 9.0 H Lymph # (Auto) 2.9 [place] # (Auto) 1.5 H Eos # (Auto) 0.2 Baso # (Auto) 0.1 Immature Gran # (Auto) 0.28 H Absolute Nucleated RBC 0.06 H Immature Gran % 2 H Nucleated RBC % 0 Sodium 129 L Potassium 4.5 Chloride 101 Carbon Dioxide 21.3 Anion Gap 7 BUN 5 L Creatinine 0.7 Estim Creat Clear Calc 132.8 eGFR > 60 BUN/Creatinine Ratio 7 L Glucose 271 H D Calculated Osmolality 266 L Calcium 8.3 Corrected Calcium 8.8 Phosphorus 2.6 Magnesium 1.8 Albumin 3.4 L Quality Measures Quality Measures none Assessment & Plan Assessment Current Active Medications: Generic Name Dose Route Start Last Admin Trade Name Freq PRN Reason Stop Dose Admin Acetaminophen 650 mg 01/30/24 19:34 Acetaminophen 325 Mg Tablet PO 02/29/24 19:33 Q6H PRN Fever >101.5 Aspirin 81 mg 02/01/24 09:00 02/02/24 08:15 Aspirin Ec 81 Mg Tabec PO 03/02/24 08:59 Not Given QDAY AMTTHIEU Bisacodyl 10 mg 02/01/24 14:14 02/01/24 15:10 Bisacodyl 10 Mg Supp WA 03/02/24 14:13 10 mg QDAY PRN Administration CONSTIPATION Protocol Dextrose 50 ml 01/30/24 17:46 Dextrose 50%-Water Inj 50 Ml Syringe IV 02/29/24 17:45 Q15MIN PRN BG <50 OR BG <70 & pt unresponsive Docusate Sodium 100 mg 01/31/24 09:00 02/02/24 08:15 Docusate Sod 100 Mg Capsule PO 03/01/24 08:59 100 mg QDAY MATTHIEU Administration Ferrous Sulfate 325 mg 01/31/24 09:00 02/02/24 08:15 Ferrous Sulf 325 Mg Tablet PO 03/01/24 08:59 325 mg QDAY MATTHIEU Administration Glucagon 1 mg 01/30/24 17:46 Glucagon Inj 1 Mg Vial IM Q15MIN PRN BG <70, and no IV access Potassium Chloride 30 meq/ 1,015 mls @ 100 mls/hr 01/30/24 19:38 02/02/24 11:55 Sodium Chloride IV 02/29/24 19:37 100 mls/hr .Q10H9M MATTHIEU Administration Iron Sucrose 200 mg/ Sodium 110 mls @ 110 mls/hr 01/31/24 11:00 02/02/24 11:48 Chloride IV 02/04/24 10:59 110 mls/hr QDAY MATTHIEU Administration Sodium Chloride 1,000 mls @ 80 mls/hr 02/02/24 08:00 02/02/24 08:14 Ns IV 02/02/24 20:29 80 mls/hr .[id number] ONE Administration Insulin Glargine 22 unit 02/02/24 09:00 02/02/24 08:15 Insulin Glargine (Lantus) 5 Unit/0.05 Ml (Per 5 Units) SC 03/03/24 08:59 22 unit BID MATTHIEU Administration Insulin Human Lispro 0 unit 02/02/24 11:30 02/02/24 11:49 Insulin Lispro (Admelog) 1 Unit/0.01 Ml Unit SC 03/03/24 11:29 6 unit ACHS MATTHIEU Administration Protocol Levothyroxine Sodium 125 mcg 02/01/24 06:00 02/02/24 05:23 Levothyroxine Sodium 125 Mcg Tablet PO 03/02/24 05:59 125 mcg ACBR MATTHIEU Administration Nortriptyline HCl 25 mg 01/31/24 21:00 02/01/24 21:12 Nortriptyline Hcl 25 Mg Capsule PO 03/01/24 20:59 25 mg HS MATTHIEU Administration Ondansetron HCl 4 mg 01/30/24 19:34 02/01/24 12:57 Ondansetron Inj 2 Mg/Ml Inj 2 Ml IV 02/29/24 19:33 4 mg Q6H PRN Administration NAUSEA OR VOMITING Pantoprazole Sodium 40 mg 01/30/24 19:45 02/02/24 08:15 Pantoprazole Inj 40 Mg Vial IVP 02/29/24 19:44 40 mg QDAY MATTHIEU Administration Polyethylene Glycol 17 gm 02/02/24 09:00 02/02/24 08:15 Polyethylene Glycol 17 Gm Packet PO 03/03/24 08:59 17 gm QDAY MATTHIEU Administration Promethazine HCl 25 mg 01/30/24 19:40 02/01/24 00:05 Promethazine Inj 25 Mg/Ml Vial IM 02/29/24 19:39 25 mg Q6HR PRN Administration NAUSEA OR VOMITING Protocol Plan Ms Colón is a 33-year-old female, G4, P1 at 19 weeks, with PMHx of type 1 diabetes, hypothyroidism, gastroparesis, history of DKA and drug abuse, presenting to ED with acute onset of intractable nausea and vomiting that started the morning of admission. Hospitalist team was consulted for evaluation. We appreciate the consult, recommendations as below. Continue management per primary team, we will continue to follow peripherally. Please consult as needed. Reason for consult: Diabetes management 1. Type 1 diabetes, insulin-dependent, poorly controlled - HbA1c = 8.6 this visit. Admission GLUCOSE 141. No signs of DKA as explained above. - On admission, BG 203, we gave 1x 5 units, changed to home dose 15 BID - HbA1c = 9.4 (Dec, 2023) --> 8.6 (Jan, 2024) - 02/01 : Blood glucose 180 - 250s , likely due to improved diet Plan: - Continue LOW carb consistent diet - Started normal insulin sliding scale with Accu-Checks - Hypoglycemia protocol in place - Continue insulin Glargine 15 BID --> 22 BID - On sliding scale, changed from sensitive -> moderate scale - Advisable to prescribe continuous glucose monitor on discharge 2. Intractable nausea and vomiting 3. Second trimester , 21 weeks 4. Constipation?resolved DDx: Hyperemesis gravidarum vs. gastroparesis vs. gastritis vs. GERD Presenting with 1 day of recurrent, intractable nausea and vomiting. Symptoms unrelated to food. No fever or chills. No chest pain or shortness of breath. No constipation or diarrhea. She has a standing history of gastroparesis likely related to uncontrolled diabetes. Patient also has history of GERD on home OMEPRAZOLE. No history of HF or cardiomyopathy. No signs of DKA: Normal anion gap. Elevated beta hydroxybutyrate likely 2/2 dehydration, anticipate improvement with fluids. EKG showed sinus tachycardia no acute ST changes. Recommendations: ? Consider REGLAN 5 mg q.6 hours PRN, for added benefit of increased gastrointestinal motility ? Continue ZOFRAN 4 mg q.6 hours PRN, second line ? Continue PROMETHAZINE per primary team ? Avoid NSAIDs. Continue IV Protonix 40 mg daily. ? Continue multivitamins with FOLIC ACID ? Added BISACODYL suppository PRN ? Give x 1 of docusate + MiraLAX q. day + Fleet enema ? Continue trending CBC and CMP ? 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 Medina 5. Normocytic anemia 6. Hypotonic hyponatremia, moderate - Hgb 11.2, MCV 80s - Iron panel: consistent with ANGELINE - Na 129, OSM 266 Recommendations: ? Continue p.o. ferrous sulfate 325 mg daily ? On IV VENOFER 200 mg daily x 5 days ? Continue maintenance IVF: NS @80 cc/h x1 for hyponatremia. Mentation at baseline. 7. Hypothyroidism TSH 5.8H , free T4 wnl Plan: - Increased home LEVOTHYROXINE 112 to 125 MCG AC BR - PCP to monitor outpatient 8. Leukocytosis - improved - Likely reactive in setting of nausea, vomiting, patient afebrile, less likely infection ? Daily CBC , WBC 16 --> 13.9 Plan of care discussed with attending Dr Oneil, Edward Avery MD, PGY 2 Attending Provider Attestation/Addendum I reviewed labs, imaging, EKG, home medications and prior available records. Face to face evaluation was performed by me. I have personally examined the patient and discussed assessment and plan with the IM team. I reviewed the resident note and agree with the plan with exceptions as below. Uncontrolled diabetes mellitus with hyperglycemia, insulin-dependent type 1 Intractable nausea and vomiting Second trimester , 21 weeks Morbid obesity Dyspepsia History of cocaine abuse Her intractable nausea/vomiting is likely from hyperemesis gravidarum versus peptic ulcer disease gastroparesis Start Reglan and Zofran, switched to Phenergan and Zofran per primary team Encourage oral hydration Repeat BMP in 1 week Discharge on long-acting insulin 22 units twice daily. Continue sliding scale insulin at home. Adjust based on the future fingersticks. Monitor fingersticks. Avoid snacks. Low carb consistent diet. Counseled the patient regarding the importance of avoiding snacks Stop aspirin for 1 week Continue Protonix 40 mg daily. Outpatient follow-up with GI for EGD after delivery. Follow-up CMP and CBC. Management of second trimester is as per primary team Internal medicine team will sign off. Call for any questions
--- NOTE | 2024-02-02 15:30 | ESDS_ITS ---
Planned Discharge Date 02/02/24 DS: Providers Provider Date of admission: 01/30/24 22:05 Primary care physician: Physician No Primary/Family Admitting Provider: Crescencio Medina MD Attending Provider on Admission: Dewey Oneil MD Attending Provider on DC: Crescencio Medina MD Discharging Provider: Crescencio Medina MD DS: Diagnosis Discharge Diagnosis (1) Supervision of high risk , unspecified, second trimester: Status: Acute (2) Intractable vomiting with nausea: Status: Acute (3) Poorly controlled type 1 diabetes mellitus: Status: Acute Problem List Completed Was Problem List Reviewed/Reconciled?: Yes Hospital Course Hospital Course Hospital course: Patient was seen and examined at bedside this AM. No acute events overnight. Patient tolerating diet now, she endorses improvement of nausea. She is able to tolerate full meals now, as a result blood sugars have been u ptrending, now 180-250s We will titrate up on Insulin Glargine from 15 BID --> 22 BID and switch sliding scale from sensitive -> moderate Anticipate blood sugar correction over next 24 hours Started on IVF : NS @ 80 cc/h for moderate Hyponatremia Na 129 and low Osm Patient endorsed that she would like to be discharged, we informed her that primary team is still [employer] and discharge would be as per their final assessment. 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 Vital Signs Temp Pulse Resp BP Pulse Ox O2 Del Method 98.3 F 89 18 105/65 98 Room Air 02/02/24 12:00 02/02/24 12:00 02/02/24 12:00 02/02/24 12:00 02/02/24 12:00 02/02/24 12:00 Discharge Plan Plan Patient Disposition: HOME (Self Care) Patient condition on transfer: Stable Prescriptions/Referrals Prescriptions/Med Rec: New pantoprazole [Protonix] 40 mg tablet,delayed release (DR/EC) 40 mg PO QDAY 30 Days Qty: 30 2RF promethazine 25 mg suppository 25 mg NV Q6H PRN (Reason: nausea and vomiting) Qty: 12 0RF Continued levothyroxine 112 mcg Tablet 112 mcg PO ACBR Qty: 30 0RF multivitamin with folic acid [Tab-A-Juanita] 400 mcg Tablet 1 tab PO DAILY Qty: 30 0RF ferrous sulfate 325 mg (65 mg iron) tablet 325 mg PO QDAY Patient Comments: TAKE 1 TABLET BY MOUTH THREE TIMES A DAY FOR 30 DAYS nortriptyline 25 mg Capsule 25 mg PO HS (DME) FreeStyle Rickey 3 Sensor Device See Rx Instructions .Route Qty: 1 0RF Rx Instructions: As directed insulin lispro [Humalog KwikPen Insulin] 100 unit/mL insulin pen 8 unit subcut TID Qty: 15 0RF insulin glargine U-300 conc [Toujeo SoloStar U-300 Insulin] 300 unit/mL (1.5 mL) insulin pen 40 unit SUBCUT ONCE PM Qty: 4.5 4RF Held aspirin 81 mg tablet,delayed release (DR/EC) 81 mg PO QDAY Hold Instructions: Resume on 02/14/24. Patient Comments: TAKE 1 TABLET BY MOUTH EVERY DAY FOR 30 DAYS Referrals: Crescencio Medina MD [Physician] - No Primary/Family,Physician [Primary Care Provider] - Patient/Caregiver Discharge Instructions Meds to Beds: Yes Discharge Activity: activity as tolerated Print Language: Portuguese Stand Alone Forms: Dominique Award Info., Patient Portal Info Letter Discharge Order Discharge Orders: Discharge (Routine); Ordered 02/02/24 Ordered By: Crescencio Medina
[2024-02-02 16:00] VITALS: BP 100/67; PULSE 89; RESP 17; TEMP 36.3; O2SAT 99
== END 2024-02-02 16:50 | disposition home or self-care (01) | DRG 566 ==
LOC: SERX 16:47 → SERHOLD 22:08 → S3NX 23:59
PROVIDERS: Student in an Organized Health Care Education/Training Program; Admitting Provider Obstetrics & Gynecology; Emergency Provider Emergency Medicine; Visit Provider Student in an Organized Health Care Education/Training Program
DX: O24.012 Pre-existing type 1 diabetes mellitus, in pregnancy, second trimester (principal); E66.01 Morbid (severe) obesity due to excess calories; O99.212 Obesity complicating pregnancy, second trimester; E03.9 Hypothyroidism, unspecified; O99.012 Anemia complicating pregnancy, second trimester; D50.9 Iron deficiency anemia, unspecified; K21.9 Gastro-esophageal reflux disease without esophagitis; E10.43 Type 1 diabetes mellitus with diabetic autonomic (poly)neuropathy; Z3A.19 19 weeks gestation of pregnancy; O99.282 Endocrine, nutritional and metabolic diseases complicating pregnancy, second trimester; O99.612 Diseases of the digestive system complicating pregnancy, second trimester; O09.92 Supervision of high risk pregnancy, unspecified, second trimester; E10.65 Type 1 diabetes mellitus with hyperglycemia; E87.1 Hypo-osmolality and hyponatremia; D72.829 Elevated white blood cell count, unspecified; O99.112 Other diseases of the blood and blood-forming organs and certain disorders involving the immune mechanism complicating pregnancy, second trimester
CPT/HCPCS: 36415; 76805; 80053; 80069; 81001; 82010; 83036; 83540; 83550; 83735; 84439; 84443; 85025; 93005; 96361; 96372; 96374; 96375; 96376; 99285; J1756; J1815; J2405; J2470; J2550; J3480; J7030; J7050; A9270

== ENCOUNTER 2024-02-13 19:16 | Emergency (ER) | payer MEDICAID, SELFPAY ==
[2024-02-13 19:17] VITALS: BMI 42.5
[2024-02-13 19:32] VITALS: BP 117/84; PULSE 97; RESP 20; TEMP 36.9; O2SAT 100
--- NOTE | 2024-02-13 19:34 | PD.EDRME ---
Rapid Medical Screening Exam E Arrival date/time: 02/13/24 19:16 33F with history of DM1 w/ DKA, hypothyroidism and drug use presents to ED for intractable N/V. Patient recently discharged for this. Patient is currently . Chief Complaint: Nausea/Vomiting/Diarrhea Vital signs: Vital Signs Temperature 98.5 F 02/13/24 19:32 Pulse Rate 97 02/13/24 19:32 Respiratory Rate 20 02/13/24 19:32 Blood Pressure 117/84 02/13/24 19:32 Pulse Oximetry (%) 100 02/13/24 19:32 Oxygen Delivery Method Room Air 02/13/24 19:32
[2024-02-13 20:07] LABS: Basophils # (Auto) 0.1 Thou/mm3 (0.0-0.2); Basophils % (Auto) 0 % (0-2.5); Beta Hydroxybutyrate 0.2 mmol/L (<0.6); Eosinophils # (Auto) 0.6 Thou/mm3 (0.0-0.5); Eosinophils % (Auto) 4 % (0-10); Hematocrit 33.5 % (36.0-46.0); Hemoglobin 10.8 g/dL (12.0-16.0); Immature Granulocytes % (Auto) 1 % (0-0); Immature Granulocytes Auto 0.16 Thou/mm3 (0.00-0.00); Lymphocytes # (Auto) 3.4 Thou/mm3 (1.0-4.8); Lymphocytes % (Auto) 21 % (10-50); Mean Corpuscular HGB Conc 32.2 g/dl (31.0-37.0); Mean Corpuscular Hemoglobin 28.1 pg (25.0-35.0); Mean Corpuscular Volume 87 fL (80-100); Monocytes # (Auto) 1.1 Thou/mm3 (0.0-0.8); Monocytes % (Auto) 7 % (0-12); Neutrophils # (Auto) 10.6 Thou/mm3 (1.8-7.7); Neutrophils % (Auto) 67 % (37-80); Nucleated Red Blood Cell % 0 /100 WBC (0); Platelet Count 426 Thou/mm3 (140-440); RDW Standard Deviation 64.2 fL (36.4-46.3); Red Blood Count 3.84 Miln/mm3 (4.00-5.20); White Blood Count 15.9 Thou/mm3 (3.6-11.0)
--- NOTE | 2024-02-13 20:18 | EDNOTE_ITS ---
ED General RME/HPI General Chief complaint: Nausea/Vomiting/Diarrhea Stated complaint: N/V SINCE THIS MORNING. 23 WEEKS PREG; HX DM1 Time Seen by Provider: 02/13/24 20:11 Arrival date/time: 02/13/24 19:16 CC: Nausea vomiting HPI ongoing since this morning, nonstop. Patient has a history of drug abuse is a brittle diabetic with hypothyroidism. G4, P1. Recent admission for the same complaint managed by Dr. Medina from January 29 to February 01. RME / HPI RME / HPI narrative: 02/13/24 19:16 33F with history of DM1 w/ DKA, hypothyroidism and drug use presents to ED for intractable N/V. Patient recently discharged for this. Patient is currently . Related Data Home Medications ?Medication ?Instructions ?Recorded ?Confirmed aspirin 81 mg tablet,delayed 81 mg PO QDAY 01/30/24 02/13/24 release ferrous sulfate 325 mg (65 mg 325 mg PO QDAY 01/30/24 02/13/24 iron) tablet nortriptyline 25 mg capsule 25 mg PO HS 01/31/24 02/13/24 Previous Rx's ?Medication ?Instructions ?Recorded levothyroxine 112 mcg tablet 112 mcg PO ACBR #30 tabs 12/16/23 multivitamin with folic acid 400 1 tab PO DAILY #30 tabs 12/16/23 mcg tablet (Tab-A-Juanita) insulin glargine U-300 conc 300 40 unit (0.1333 mL) subcut ONCE PM 12/25/23 unit/mL (1.5 mL) subcutaneous pen #4.5 mL (Toujeo SoloStar U-300 Insulin) insulin lispro 100 unit/mL 8 unit (0.08 mL) subcut TID #15 mL 12/25/23 subcutaneous pen (Humalog KwikPen (U-100) Insulin) pantoprazole 40 mg tablet,delayed 40 mg PO QDAY 30 days #30 tabs 02/01/24 release (Protonix) promethazine 25 mg rectal 25 mg MI Q6H PRN nausea and 02/01/24 suppository vomiting #12 ea ondansetron 4 mg disintegrating 4 mg PO Q6H PRN nausea and 02/14/24 tablet vomiting 4 days #14 tabs Allergies Allergy/AdvReac Type Severity Reaction Status Date / Time No Known Allergies Allergy Verified 01/30/24 16:35 Review of Systems Review of Systems Narrative Review of Systems: GEN: No fever, no chills, no weight loss EYES: No discharge, no visual changes, no pain HEENT: No ear pain, no congestion, no sore throat PULM: No shortness of breath, no cough, no congestion CV: No chest pain, no dyspnea on exertion, no palpitations GI: + nausea, + vomiting, no diarrhea, no pain, no constipation : No frequency, no urgency, no dysuria MUSC/SKEL: No joint pain, no back pain SKIN: No rash PSYCH: No hallucinations, no depression HEME/LYMPH: No easy bleeding or bruising tendencies NEURO: No weakness, no headache Past Medical History Past Medical History NEUROLOGIC: Negative Neurological Disorders, Meningitis, Seizures or Migraine CARDIAC: Negative Cardiac Disorders, Congestive Heart Failure, Edema or Hypertension RESPIRATORY: Negative Chronic Obstructive Pulmonary Disease (COPD), Asthma or Emphysema GASTROINTESTINAL: Positive Gastrointestinal Disorders and Obesity; Negative Hepatitis, Pancreatitis, Gall Bladder Disease or Gastroesophageal Reflux Disease GENITOURINARY: Negative Genitourinary Disorders, Renal Disease or Kidney Stones REPRODUCTIVE: Positive Previous Pregnancies; Negative Pelvic Inflammatory Disease MUSCULOSKELETAL: Negative Musculoskeletal Disorders, Marfan's Syndrome, Degenerative Disk Disease or Gout ENDOCRINE: Positive Endocrine Disorders, Diabetes Mellitus Type 1 and Hypothyroidism; Negative Diabetes Mellitus Type 2 HEMATOLOGIC: Negative Blood Disorders, Anemia or Sickle Cell Disease PSYCHO/SOCIAL: Positive Recreational Drug Use, Depression and Anxiety; Negative Behavior Problems OTHER HISTORY: Positive Hospitalization and Chicken Pox; Negative Autoimmune Disease, Down Syndrome, Developmental Delay, Shingles, Falls, Blood Transfusions, Blood Transfusion Reaction, Anesthesia Reactions, Organ Transplant, Chemotherapy, Radiation Therapy, Hyperbaric Therapy, MRSA, VRSA, Vancomycin-Resistant Enterococci, Human Immunodeficiency Virus (HIV), Measles, Mumps, Rubella (Swedish Measles), Pertussis, Clostridium Difficile or Cancer Family History FAMILY HISTORY: Positive Family Gastrointestinal Problems; Negative Family Psychiatric Problems, Family Respiratory Disorders, Family Cardiac Disorders, Family Cancer, Family Surgery or Family Anesthesia Reaction Surgical History SURGICAL: Positive Section (x2); Negative Ear Surgery, Eye Surgery, Nose Surgery, Oral Surgery, Abdominal Surgery, Nephrectomy, Joint Replacement, Neurologic Surgery or Organ Transplant Social History SMOKING STATUS: Never smoker SECOND HAND EXPOSURE: No SUBSTANCE USE: crack/cocaine and opiates ED Exam Narrative Physical exam: [General: Obese, in moderate discomfort but not in any acute distress Head normocephalic HEENT: Within acceptable limits Neck is supple nontender Chest equal chest rise nontender to palpation Respiratory: Clear to auscultation no wheezes crackles or rubs CV: Rate rhythm is regular no murmurs rubs or clicks Abdomen is distended secondary to body habitus soft nontender no masses positive bowel sounds all 4 quadrants Back: No CVA tenderness no spinous process tenderness from cervical spine thoracic and lumbar spine Skin: Intact no petechiae rash induration ulceration or crepitus Extremities: Moving all extremity against resistance cap refill less than 2 seconds neurosensory intact Neuro: Awake alert oriented x3 Glascow coma 15 no focal deficits] Course Quality Measures none Orders Category Date Time Status Blood glucose [Bedside Blood Glucose] NOW Care 02/13/24 19:46 Completed Saline [Insert IV] NOW Care 02/13/24 20:13 Completed US OB >= 14 weeks Fetus Stat Exams 02/13/24 20:35 Completed Beta Hydroxybutyrate Stat Lab 02/13/24 19:48 Completed CBC Stat Lab 02/13/24 19:48 Completed CMP [Comprehensive Metabolic Panel] Stat Lab 02/13/24 19:48 Completed Lipase Stat Lab 02/13/24 19:48 Completed Urinalysis, C/S if Indicated Stat Lab 02/13/24 23:08 Completed Metoclopramide Inj [Reglan Inj] Med 02/13/24 20:15 Discontinued 10 mg IVP X1 ONE Promethazine Inj [Phenergan Inj] 25 mg Med 02/13/24 20:16 Discontinued Sodium Chloride 0.9% [Ns] 50 ml IV X1 Sodium Chloride 0.9% 1000 ml [Ns] 1,000 ml Med 02/13/24 21:57 Discontinued IV 150 mls/hr Sodium Chloride 0.9% 1000 ml [Ns] 1,000 ml Med 02/13/24 20:14 Discontinued IV 999 mls/hr Vital Signs Vital signs: Vital Signs Temperature 98.5 F 02/13/24 19:32 Pulse Rate 97 02/13/24 19:32 Respiratory Rate 20 02/13/24 19:32 Blood Pressure 117/84 02/13/24 19:32 Pulse Oximetry (%) 100 02/13/24 19:32 Oxygen Delivery Method Room Air 02/13/24 19:32 [facility] Patient data External records reviewed:: [facility] previous records Clinical information provided by:: patient Social determinants that could affect healthcare access:: none Patient has the following chronic illnesses:: Diabetic polysubstance abuse How is presenting disease/condition affected by chronic disease/condition?: e xacerbated by Evaluation data The following diagnostics were reviewed and interpreted by me:: lab results and radiology exam(s) Lab and/or radiology exams considered but not ordered:: CBC shows leukocytosis of 15.9 H&H of 10.8 and 33.5 with platelets at 426 CMP shows a sodium 133 potassium of 4.5 chloride 103 CO2 of 23.0 BUN of 7 creatinine 0.6 glucose 137. Ultrasound shows the patient is single IUP at 22 weeks 2 days with heart tones 144 Interpretation Summary: Hyperemesis gravidarum Medications Medications considered but not ordered:: None Medication administrations:: Medication Administration History Discontinued Medications Sodium Chloride (Ns) 1,000 mls @ 999 mls/hr IV .Q1H1M ONE Stop: 02/13/24 21:14 Last Infusion: 02/13/24 22:07 Dose: Infused Documented By: Admin: 02/13/24 20:30 Dose: 999 mls/hr Documented By: CVL Promethazine HCl 25 mg/ Sodium (Chloride) 51 mls @ 2.5 mls/min IV X1 ONE Stop: 02/13/24 20:36 Sodium Chloride (Ns) 1,000 mls @ 150 mls/hr IV .Q6H40M ONE Stop: 02/14/24 04:36 Last Infusion: 02/14/24 00:59 Dose: 0 mls/hr Documented By: Admin: 02/13/24 22:03 Dose: 150 mls/hr Documented By: CVL Metoclopramide HCl (Metoclopramide Inj 5 Mg/Ml Vial 2 Ml) 10 mg IVP X1 ONE; Protocol Stop: 02/13/24 20:16 Last Admin: 02/13/24 20:36 Dose: 10 mg Documented By: CVL None Consultations Consultation(s) initiated? (list below): No Diagnosis Differential Diagnosis ED Complaint MDM: Hyperemesis gravidarum gastroparesis DKA Most likely diagnosis given after review of the tests above:: Hyperemesis gravidarum Admission Indicated Admission indicated?: not indicated Explain why admission is indicated or not indicated:: Stable for outpatient follow-up Admission Request Was there a request for admission?: No Disposition Plan Disposition Plan: Discharge Discharge Attestation Discharge Attestation: The patient and all family members were given an opportunity to ask questions and understood the discharge instructions. Discharge instructions specifically effects, indications for sooner follow up or return to the emergency department, and the expected course of current diagnosis. Patient condition: Stable Medical Decision Making Differential Diagnosis Differential Diagnosis: Hyperemesis gravidarum gastroparesis DKA Lab Data 02/13/24 19:48 02/13/24 19:48 Labs: Lab Results 02/13/24 02/13/24 Range/Units 19:48 23:08 WBC 15.9 H (3.6-11.0) Thou/mm3 RBC 3.84 L (4.00-5.20) Miln/mm3 Hgb 10.8 L (12.0-16.0) g/dL Hct 33.5 L (36.0-46.0) % MCV 87 (80-100) fL MCH 28.1 (25.0-35.0) pg MCHC 32.2 (31.0-37.0) g/dl RDW Std Deviation 64.2 H (36.4-46.3) fL Plt Count 426 (140-440) Thou/mm3 Neut % (Auto) 67 (37-80) % Lymph % (Auto) 21 (10-50) % [place] % (Auto) 7 (0-12) % Eos % (Auto) 4 (0-10) % Baso % (Auto) 0 (0-2.5) % Neut # (Auto) 10.6 H (1.8-7.7) Thou/mm3 Lymph # (Auto) 3.4 (1.0-4.8) Thou/mm3 [place] # (Auto) 1.1 H (0.0-0.8) Thou/mm3 Eos # (Auto) 0.6 H (0.0-0.5) Thou/mm3 Baso # (Auto) 0.1 (0.0-0.2) Thou/mm3 Immature Gran # (Auto) 0.16 H (0.00-0.00) Thou/mm3 Absolute Nucleated RBC 0.00 (0.00-0.00) Thou/mm3 Immature Gran % 1 H (0-0) % Nucleated RBC % 0 (0) /100 WBC Sodium 133 L (136-145) mMol/L Potassium 4.5 (3.4-5.1) mMol/L Chloride 103 (98-107) mMol/L Carbon Dioxide 23.0 (20.0-31.0) mMol/L Anion Gap 7 (7-16) BUN 7 L (9-23) mg/dL Creatinine 0.6 (0.6-1.3) mg/dL Estim Creat Clear Calc 156.4 (>60) mL/min eGFR > 60 (60 - ) See Note BUN/Creatinine Ratio 12 (12-20) Ratio Glucose 137 H (74-106) mg/dL Calculated Osmolality 266 L (275-295) Calcium 9.3 (8.3-10.6) mg/dL Corrected Calcium 9.4 (8.5-10.1) mg/dL Total Bilirubin 0.2 L (0.3-1.2) mg/dL AST 18 (0-34) U/L ALT 18 (10-49) U/L Alkaline Phosphatase 109 (46-116) U/L Total Protein 6.8 (5.7-8.2) gm/dL Albumin 3.9 (3.5-5.0) gm/dL Globulin 2.9 (2.3-3.5) gm/dL Albumin/Globulin Ratio 1.3 (1.2-2.2) Lipase 19 (12-53) U/L Beta-Hydroxybutyrate/Acetoacetate 0.2 (<0.6) mmol/L Ur Collection Type Clean Catch Urine Color Lt-Yellow (Lt Yel-Yel) Urine Clarity Turbid A (Clear/Hazy) Urine pH 7.0 (5.0-7.0) Ur Specific [place] 1.022 (1.001-1.035) Urine Protein Trace (Neg - Trace) Urine Glucose (UA) 3+ A (Negative) Urine Ketones Negative (Negative) Urine Blood Negative (Negative) Urine Nitrite Negative (Negative) Urine Bilirubin Negative (Negative) Urine Urobilinogen (Auto) Negative (0.0-1.0) mg/dL Ur Leukocyte Esterase Negative (Negative) Urine RBC 2 (0-3) /hpf Urine WBC 3 (0-5) /hpf Ur Squamous Epith Cells 5 (0-5) /hpf Urine Bacteria Rare (None) Ur Culture Indicated? Not Indicated Discharge Plan Plan Patient Disposition: HOME (Self Care) Disposition Comment: Stable for discharge Patient condition on transfer: Stable Prescriptions/Referrals Prescriptions/Med Rec: New ondansetron 4 mg tablet,disintegrating 4 mg PO Q6H PRN (Reason: nausea and vomiting) 4 Days Qty: 14 0RF No Action levothyroxine 112 mcg Tablet 112 mcg PO ACBR Qty: 30 0RF multivitamin with folic acid [Tab-A-Juanita] 400 mcg Tablet 1 tab PO DAILY Qty: 30 0RF aspirin 81 mg tablet,delayed release (DR/EC) 81 mg PO QDAY Hold Instructions: Resume on 02/14/24. Patient Comments: TAKE 1 TABLET BY MOUTH EVERY DAY FOR 30 DAYS ferrous sulfate 325 mg (65 mg iron) tablet 325 mg PO QDAY Patient Comments: TAKE 1 TABLET BY MOUTH THREE TIMES A DAY FOR 30 DAYS nortriptyline 25 mg Capsule 25 mg PO HS pantoprazole [Protonix] 40 mg tablet,delayed release (DR/EC) 40 mg PO QDAY 30 Days Qty: 30 2RF promethazine 25 mg suppository 25 mg MI Q6H PRN (Reason: nausea and vomiting) Qty: 12 0RF insulin lispro [Humalog KwikPen Insulin] 100 unit/mL insulin pen 8 unit subcut TID Qty: 15 0RF insulin glargine U-300 conc [Toujeo SoloStar U-300 Insulin] 300 unit/mL (1.5 mL) insulin pen 40 unit SUBCUT ONCE PM Qty: 4.5 4RF Referrals: Wilian Carrero MD [Primary Care Provider] - In 1 week Problem List Clinical Impression: Vomiting of , after 22 weeks Patient/Caregiver Discharge Instructions Discharge Activity: activity as tolerated Education Materials: Severe Morning Sickness ..., ED Hyperemesis Gravidarum, ED Vomiting (Adult) Additional Instructions: Please follow-up with your primary OB within the next several days There is a prescription for a medicine called ondansetron at your pharmacy. This is antivomiting medicine. You placed these pills under your tongue and they dissolve there and they should take care of your nausea/vomiting. As always if you notice yourself worsening or not improving within the next couple of days you should return to the ER right away Print Language: Faroese Stand Alone Forms: Dominique Award Info., Patient Portal Info Letter
[2024-02-13 20:19] LABS: Alanine Aminotransferase 18 U/L (10-49); Albumin, Serum 3.9 gm/dL (3.5-5.0); Albumin/Globulin Ratio 1.3 (1.2-2.2); Alkaline Phosphatase 109 U/L (46-116); Anion Gap 7 (7-16); Aspartate Amino Transferase 18 U/L (0-34); BUN/Creatinine Ratio 12 Ratio (12-20); Bilirubin,Total 0.2 mg/dL (0.3-1.2); Blood Urea Nitrogen 7 mg/dL (9-23); Calcium 9.3 mg/dL (8.3-10.6); Calcium (Corrected) 9.4 mg/dL (8.5-10.1); Chloride 103 mMol/L (98-107); Creatinine (Component) 0.6 mg/dL (0.6-1.3); Estimated Creatinine Clearance 156.4 mL/min (>60); Globulin 2.9 gm/dL (2.3-3.5); Glucose 137 mg/dL (74-106); Lipase 19 U/L (12-53); Osmolality,Calculated 266 (275-295); Potassium 4.5 mMol/L (3.4-5.1); Sodium 133 mMol/L (136-145); Total Protein 6.8 gm/dL (5.7-8.2); eGFR > 60 See Note
[2024-02-13] MEDS: SODIUM CHLORIDE 0.9% 1000 ML 1,000 ML 999 ML IV (20:30)
--- NOTE | 2024-02-13 20:35 | XR_ITS ---
Examination: Complete OB ultrasound greater than 14 weeks Date and time of exam: February 13, 2024 2100 hrs. Indications: Onset nausea today Findings: Viable intrauterine single fetus with single amniotic sac presentation cephalic Cardiac motion 144 BPM Placenta posterior grade 1 Umbilical cord insertion seen Amniotic fluid index 14.9 cm Cervix 2.9 cm Ovaries obscured by bowel gas. Composite estimated gestational age based on BPD, head circumference, abdominal circumference, femur length is 22 weeks 2 days Estimated weight 490.9 g. Survey of intracranial anatomy, spinal anatomy, abdominal anatomy, four-chamber heart performed with no abnormalities identified. Impression: Viable intrauterine gestation cephalic presentation.
[2024-02-13] MEDS: METOCLOPRAMIDE INJ 5 MG/ML VIAL 2 ML 10 MG IVP (20:36)
[2024-02-13 21:47] VITALS: BP 129/93; PULSE 93; RESP 18; O2SAT 100
[2024-02-13] MEDS: SODIUM CHLORIDE 0.9% 1000 ML 1,000 ML 150 ML IV (22:03)
[2024-02-13 23:20] LABS: Collection Type, Urine Clean Catch
--- NOTE | 2024-02-13 23:22 | PD.EDADDENDU ---
Emergency Room Addendum Addendum Narrative: 2300: Care assumed from Natan Hamilton NP, the previous shift emergency physician. Past medical, surgical, social and family history reviewed. Vitals and home medications reviewed. Results and treatment plan discussed. I will assume the care of the patient at this time and will follow the patient, pending urinalysis. Please refer to the emergency department record for history and examination from initial visit. Urinalysis came back unremarkable. Patient is stable to be discharged home. I will sent a prescription for Zofran to her pharmacy. Diagnosis: vomiting in
[2024-02-13 23:37] LABS: Bacteria,Urine Rare; Bilirubin,Urine Negative (Negative); Blood,Urine Negative (Negative); Clarity,Urine Turbid (Clear/Hazy); Color,Urine Lt-Yellow (Lt Yel-Yel); Culture Indicated,Urine Not Indicated; Glucose, Urine 3+ (Negative); Ketones,Urine Negative (Negative); Leukocyte Esterase,Urine Negative (Negative); Nitrite,Urine Negative (Negative); Protein,Urine Trace (Neg - Trace); RBC,Urine 2 /hpf (0-3); Specific Gravity,Urine 1.022 (1.001-1.035); Squamous Epithelial Cell,Urine 5 /hpf (0-5); Urobilinogen,Urine Negative mg/dL (0.0-1.0); WBC,Urine 3 /hpf (0-5)
[2024-02-13 23:51] VITALS: BP 124/68; PULSE 90; RESP 16; O2SAT 100
[2024-02-14 00:37] VITALS: BP 129/78; RESP 18; TEMP 36.4; O2SAT 98
[2024-02-14 00:51] VITALS: RESP 18
--- NOTE | 2024-02-14 01:00 | PC.NURSE ---
pt waiting in er lobby for ride, more juice and sandwich given.
== END 2024-02-14 00:52 | disposition home or self-care (01) ==
PROVIDERS: Physician Assistant; Emergency Provider Emergency Medicine; PCP Family Medicine
DX: O21.2 Late vomiting of pregnancy (principal); O99.112 Other diseases of the blood and blood-forming organs and certain disorders involving the immune mechanism complicating pregnancy, second trimester; D72.829 Elevated white blood cell count, unspecified; Z3A.22 22 weeks gestation of pregnancy
CPT/HCPCS: 36415; 76805; 80053; 81001; 82010; 83690; 85025; 96361; 96374; 99284; J2765; J7030

== ENCOUNTER 2024-04-15 13:16 | Outpatient (RCR) | payer MEDICAID, SELFPAY ==
--- NOTE | 2024-04-15 13:26 | XR_ITS ---
Examination: Biophysical profile, ultrasound Date and time of exam: April 15, 2024 1343 hours INDICATIONS: Diagnosis pre-existing diabetes, insulin requiring Technique: Multiple transabdominal sonographic images of the pelvis abdomen obtained. Attention is directed to the breathing movement, gross body movement, amniotic fluid volume and tone. Findings: Amniotic fluid index 17.5 cm Total biophysical profile is 8 of 8. breathing movement is 2. Gross body movement is 2. tone is 2. Qualitative amniotic fluid volume is 2 Impression: Biophysical profile is 8 of 8.
[2024-04-15 15:01] VITALS: BP 114/72; PULSE 101; RESP 16; TEMP 36.8
== END 2024-04-15 23:59 | disposition home or self-care (01) ==
LOC: S4S1 13:16
PROVIDERS: Referring Provider Student in an Organized Health Care Education/Training Program; Visit Provider Student in an Organized Health Care Education/Training Program
DX: O24.113 Pre-existing type 2 diabetes mellitus, in pregnancy, third trimester (principal); E11.9 Type 2 diabetes mellitus without complications; Z3A.32 32 weeks gestation of pregnancy
CPT/HCPCS: 59025; 76819; J1100; J2274; J2405; J2590; J3010; J3490; J2270

== ENCOUNTER 2024-04-18 12:30 | Inpatient (IN) | payer MEDICAID, SELFPAY ==
[2024-04-18] VITALS (15 sets, daily range): BP systolic 109–151; BP diastolic 62–103; PULSE 81–108; RESP 14–99; TEMP 36.4–36.9; O2SAT 95–98; BMI 41.9
[2024-04-18] MEDS: BETAMET ACET/BETAMET NA PH (Celestone) 6 MG/ML VIAL 12 MG IM (13:26)
[2024-04-18] MEDS: ceFAZolin/D5W 2 GM IV 2 GM/100 ML BAG IV (13:45)
[2024-04-18] MEDS: RINGERS LACTATED 1000 ML 1,000 ML 100 ML IV (13:45)
--- NOTE | 2024-04-18 13:50 | PD.LDHP ---
Documentation for date of: 04/18/24 OB Labor/Induct. HPI History of Present Illness : 4 Term pregnancies: 1 pregnancies: 0 Living children: 1 History of Abortions: Spontaneous and Elective: 0 History of sections: Yes History of present illness: 33-year-old 4 para 0-2-1-1 at 32 weeks and 3 days presented today at 12:45 PM with contractions. Patient is a previous x 2 with a significant history of demise at 27 weeks. Patient is a poorly controlled type II diabetic with multiple adjustments of insulin throughout her care and hemoglobin A1c of 10. Patient also had a 32-week section for placental abruption. Patient experiencing regular contractions every 2 to 3 minutes declines any vaginal bleeding or leaking. History of Present Adequate Care: Yes Labs Narrative: Pending Past Medical History Surgical History SURGICAL: Positive Section Meds Home Medications and Allergies Home Medications ?Medication ?Instructions ?Recorded ?Confirmed ?Type aspirin 81 mg tablet,delayed 81 mg PO QDAY 01/30/24 02/13/24 History release Held on 02/01/24. Instructions: Resume on 02/14/24. ferrous sulfate 325 mg (65 mg 325 mg PO QDAY 01/30/24 02/13/24 History iron) tablet nortriptyline 25 mg capsule 25 mg PO HS 01/31/24 02/13/24 History Allergies Allergy/AdvReac Type Severity Reaction Status Date / Time No Known Allergies Allergy Verified 01/30/24 16:35 OB Exam Physical Exam Vital signs: Pulse BP 102 H 116/74 04/18/24 12:39 04/18/24 12:39 Constitutional Constitutional: no acute distress Routine HEENT Exam Head: Present normocephalic and atraumatic Eye: Present EOMI and PERRL ENT: Present mucous membranes moist Routine Neck Exam Neck: Present supple and trachea midline Routine Cardiovascular Exam Cardiovascular: Present RRR Routine Abdominal Exam Abdominal: Present soft and normoactive bowel sounds Detailed Labor and Delivery Exam Dilation (cm): 3 cm Effacement (%): 100% effaced Comments: Category 2 heart tone with recurrent late decelerations. Moderate variability No accelerations Routine Extremities Exam Extremities: Present full ROM Routine Skin Exam Skin: Present intact, dry and warm Routine Neurological Exam Neurological: Present alert, oriented X3 and CN II-XII intact Routine Psychiatric Exam Psychiatric: Present normal affect and normal thought process OB Results Labs 04/18/24 13:33 Impressions Impression: 33-year-old 4 para 0-2-1-1 at 32 weeks and 3 days admitted with category 2 heart tones and in labor Abruption cannot be ruled out Previous x 2 History of demise at 27 weeks History of delivery at 32 weeks for placental abruption Type II diabetic very uncontrolled hemoglobin A1c 10 multiple adjustments of insulin has been done OB Assessment & Plan Additional Plan Additional Plan Comment: Betamethasone x 1 has been given In spite of IV bolus her contractions are not resolving and category 2 heart tone persist Pediatric specialist involved and they had a discussion with the patient about prematurity Given her significant history and category 2 heart tone patient was boarded for repeat low-transverse Ampicillin for GBS prophylaxis Preop antibiotic prophylaxis NICU team on their way from [place]
[2024-04-18] MEDS: CITRIC ACID/SODIUM CITR 15 ML UDC (BICITRA) 30 ML PO (13:55)
[2024-04-18] MEDS: FAMOTIDINE INJ 10 MG/ML VIAL 2 ML 20 MG IV (13:55)
[2024-04-18 13:56] LABS: Basophils # (Auto) 0.1 Thou/mm3 (0.0-0.2); Basophils % (Auto) 1 % (0-2.5); Eosinophils # (Auto) 0.3 Thou/mm3 (0.0-0.5); Eosinophils % (Auto) 2 % (0-10); Hematocrit 30.6 % (36.0-46.0); Hemoglobin 10.3 g/dL (12.0-16.0); Immature Granulocytes % (Auto) 1 % (0-0); Immature Granulocytes Auto 0.08 Thou/mm3 (0.00-0.00); Lymphocytes # (Auto) 2.5 Thou/mm3 (1.0-4.8); Lymphocytes % (Auto) 17 % (10-50); Mean Corpuscular HGB Conc 33.7 g/dl (31.0-37.0); Mean Corpuscular Hemoglobin 28.8 pg (25.0-35.0); Mean Corpuscular Volume 86 fL (80-100); Monocytes # (Auto) 1.1 Thou/mm3 (0.0-0.8); Monocytes % (Auto) 7 % (0-12); Neutrophils # (Auto) 10.6 Thou/mm3 (1.8-7.7); Neutrophils % (Auto) 73 % (37-80); Nucleated Red Blood Cell % 0 /100 WBC (0); Platelet Count 383 Thou/mm3 (140-440); RDW Standard Deviation 49.5 fL (36.4-46.3); Red Blood Count 3.58 Miln/mm3 (4.00-5.20); White Blood Count 14.6 Thou/mm3 (3.6-11.0)
[2024-04-18 14:35] LABS: Syphilis Nonreactive (Nonreactive)
--- NOTE | 2024-04-18 15:28 | SUR.PHASEI ---
1528 Patient arrived to recovery resting comfortably in bed, awake and talking with staff, breathing unlabored, vital signs stable, denies pain, dressing intact to lower abdomen; prineo/dermabond, telfa, abd, medipore tape, no bleeding noted, to vaginal area; peripad; noted light blood to pad, pad changed, will monitor, post spinal anesthesia via ice patient dermatome sensation is at T8-costal margin, will monitor, patient unable to move lower extremities due to spinal anesthesia, urinary catheter 16F in place with leg secure; draining to gravity, skin to skin incomplete, baby taken to NICU from OR, mother in OR recovery, uterine assessment; fundus is firm and 2 fingers below umbilicus, locia-free flow-normal, lung sounds clear upon auscultation, bilateral radial pulses present when palpated, report received from Odin BRYAN and Chana CRUZ
--- NOTE | 2024-04-18 16:52 | SUR.PHASEI ---
164 Report given to Keny BRYAN, OB nurse, patient meets discharge criteria from recovery, awake and talking with staff, denies pain, dressing intact to lower abdomen, no bleeding noted, to vaginal area; peripad; noted light blood to pad, pad changed, post spinal anesthesia via ice patient dermatome sensation is at [id number], urinary catheter 16F in place with leg secure; draining to gravity, skin to skin incomplete, uterine assessment; fundus is firm and 2 fingers below umbilicus, locia-free flow-normal, patient ate small amount of ice chips; denies nausea 1651 Patient transported via bed to room 464 without incident, patient awaiting in room, Keny BRYAN promptly in patient room assessment completed by Keny arteaga tech writer present, uterine assessment patient fundus; firm and at the umbilicus, locia-free flow-normal, patient sitting up in bed, call light in reach, awake- eating ice chips, with RN present with patient when this tech writer left patients room, baby in NICU.
[2024-04-18] MEDS: OXYTOCIN in NS 20 units 20 UNIT/1,000 ML BAG 125 UNIT IV (17:35)
[2024-04-18 18:25] LABS: Alcohol, Urine Negative (Negative); Amphetamine/Metham Scrn,Ur OB Negative (Negative); Benzoylecgonine Screen, Ur OB Negative (Negative); Opiate Screen,Urine OB Negative (Negative); THC Screen,Urine OB Negative (Negative)
[2024-04-18 21:06] LABS: Basophils # (Auto) 0.1 Thou/mm3 (0.0-0.2); Basophils % (Auto) 0 % (0-2.5); Eosinophils % (Auto) 0 % (0-10); Hematocrit 31.7 % (36.0-46.0); Hemoglobin 10.7 g/dL (12.0-16.0); Immature Granulocytes % (Auto) 1 % (0-0); Immature Granulocytes Auto 0.13 Thou/mm3 (0.00-0.00); Lymphocytes # (Auto) 1.4 Thou/mm3 (1.0-4.8); Lymphocytes % (Auto) 7 % (10-50); Mean Corpuscular HGB Conc 33.8 g/dl (31.0-37.0); Mean Corpuscular Hemoglobin 28.7 pg (25.0-35.0); Mean Corpuscular Volume 85 fL (80-100); Monocytes # (Auto) 0.7 Thou/mm3 (0.0-0.8); Monocytes % (Auto) 4 % (0-12); Neutrophils # (Auto) 16.9 Thou/mm3 (1.8-7.7); Neutrophils % (Auto) 88 % (37-80); Nucleated Red Blood Cell % 0 /100 WBC (0); Platelet Count 318 Thou/mm3 (140-440); RDW Standard Deviation 48.3 fL (36.4-46.3); Red Blood Count 3.73 Miln/mm3 (4.00-5.20); White Blood Count 19.2 Thou/mm3 (3.6-11.0)
[2024-04-18] MEDS: INSULIN GLARGINE (Lantus) 5 UNIT/0.05 ML (PER 5 UNITS) 20 UNIT SC (21:15)
--- NOTE | 2024-04-18 21:23 | PD.GYNPROC ---
Operative Note - VICE PRESIDENT INTEGRATED Procedure Date of procedure: 04/18/24 Procedure Performed: Repeat Low transverse Csection Indication: Category 2 FHT Previous Csectionx2, in labor H/O demise Type 2 DM, Uncontrolled requiringmultiple Insulin adjustment Pre-Op diagnosis: same Post-Op diagnosis: same Anesthesia type: Spinal Procedure description: Informed consent was obtained and the patient was taken to the operating room.? Identity was confirmed by double identifiers and she was placed on the operating table.The abdomen and perineum were prepped in the usual sterile fashion and a Moreno catheter was placed to continuous drainage.? Sterile drapes were applied.??A Pfannenstiel skin incision was made with a scalpel and carried to the subcutaneous fat up to the rectus fascia.? The rectus fascia was incised on either side of the midline and the incisions were extended bilaterally.? The fascia was gently dissected off the ventral surface of the rectus muscle both superiorly and inferiorly. Carefully a peritioneal window created hysterotomy incision made and extended bluntly with finger. Rupture of membranes revealed clear fluid. The baby was found vertex presentation and was delivered via vertex. The umbilical cord , was doubly clamped, divided and the infant was handed over to the waiting team.? True knot seen . The placenta delivered by controlled cord traction . The interior of the uterus was now thorougly cleaned of all blood and debris and membranes.?The? hysterotomy was closed using 0 vicryl suture in double layers. Once the repair was completed the hysterotomy was inspected, was noted to be adequately hemostatic. The rectus fascia was repaired using Vicryl 0 in a running fashion.? The subcutaneous layer was now, approximated with 3-0 vicryl in double layers.? All bleeding points were cauterized using the Bovie.?The skin was closed using 4-0 Monocryl in a subcuticular fashion.? The skin was cleaned and a sterile dressing was applied. The patient was now undraped, the abdomen and back were thoroughly cleaned and she was now transferred to the recovery room in a stable Estimated blood loss (ml): 500 Surgical staff Operation Date: 04/18/24 14:00 Case Staff DIRECTOR DIETETICS DEPARTMENT: Chana Fair RN First Assistant: Karina Pretty Diagnosis Problem List Completed Was Problem List Reviewed/Reconciled?: Yes
--- NOTE | 2024-04-18 21:27 | PD.LDDELS ---
Data ([facility]) Data Hx Section: Yes : 4 Para: 2 Term: 0 : 2 : 1 Delivery Data ([facility]) Labor Data ROM Date: 04/18/24 ROM Time: 14:33 Rupture Type: AROM Delivery Data Labor Onset Stage 1 Date: 04/18/24 Labor Onset Stage 1 Time: 12:30 Labor Onset Stage 2 Date: 04/18/24 Labor Onset Stage 2 Time: 14:34 Delivery Date: 04/18/24 Delivery Time: 14:34 Gestational age (weeks): 32 Gestational age (days): 3 Placenta Delivery Date: 04/18/24 Placenta Delivery Time: 14:35 Delivered by: Samra Kasper Delivery nurse: Shellie Valdes Delivery Method Delivery: Delivery Type: Repeat Anesthesia Type Primary Anesthesia: Spinal EBL Estimated blood loss (ml): 500 Data ([facility]) [place] Data Infant Gender: Female Weight Grams: 2280 1 Minute Total: 5 5 Minute Total: 7 10 Minute Total: 8
[2024-04-19] VITALS (7 sets, daily range): BP systolic 95–127; BP diastolic 60–76; PULSE 79–98; RESP 16–19; TEMP 36.3–36.8; O2SAT 95–97
[2024-04-19] MEDS: OXYTOCIN in NS 20 units 20 UNIT/1,000 ML BAG 125 UNIT IV (03:11)
[2024-04-19] MEDS: LEVOTHYROXINE SODIUM 275 MCG PO (06:28)
[2024-04-19] MEDS: INSULIN LISPRO (AdmeLOG) 1 UNIT/0.01 ML UNIT 4 UNIT SC ×2 (07:41→11:24)
--- NOTE | 2024-04-19 07:45 | PD.LDPPPRG ---
Subjective Subjective Interval history: Patient is doing well. Patient denies any fever, vaginal bleeding with clots. Baby is in NICU for prematurity. Patient is tolerating oral diet without any nausea vomiting. Exam Vital Signs Temp Pulse Resp BP Pulse Ox O2 Del Method 98.1 F 79 16 127/76 95 Room Air 04/19/24 03:17 04/19/24 03:17 04/19/24 03:17 04/19/24 03:17 04/19/24 03:17 04/19/24 03:17 Constitutional Constitutional: no acute distress Routine HEENT Exam Head: Present normocephalic and atraumatic Eye: Present EOMI and PERRL ENT: Present mucous membranes moist Routine Neck Exam Neck: Present supple and trachea midline Routine Respiratory Exam Respiratory: Present chest non-tender, lungs clear, normal breath sounds and no resp distress Routine Cardiovascular Exam Cardiovascular: Present RRR Routine Abdominal Exam Abdominal: Present soft and normoactive bowel sounds Routine Extremities Exam Extremities: Present full ROM Routine Skin Exam Skin: Present intact, dry and warm Routine Neurological Exam Neurological: Present alert, oriented X3 and CN II-XII intact Routine Psychiatric Exam Psychiatric: Present normal affect and normal thought process Objective Labs 04/18/24 20:40 Labs: Laboratory Results - last 24 hr 04/18/24 04/18/24 04/18/24 13:33 13:35 17:40 WBC 14.6 H RBC 3.58 L Hgb 10.3 L Hct 30.6 L MCV 86 MCH 28.8 MCHC 33.7 RDW Std Deviation 49.5 H Plt Count 383 Neut % (Auto) 73 Lymph % (Auto) 17 Glades % (Auto) 7 Eos % (Auto) 2 Baso % (Auto) 1 Neut # (Auto) 10.6 H Lymph # (Auto) 2.5 Glades # (Auto) 1.1 H Eos # (Auto) 0.3 Baso # (Auto) 0.1 Immature Gran # (Auto) 0.08 H Absolute Nucleated RBC 0.00 Immature Gran % 1 H Nucleated RBC % 0 Urine Opiates Screen Negative U Amphetamin/Meth Scrn Negative U Cocaine Metab Screen Negative U Marijuana (THC) Screen Negative Urine Alcohol Negative Syphilis Serology Nonreactive Blood Type A Positive Antibody Screen NEGATIVE Blood Bank Wristband ID Yes 04/18/24 20:40 WBC 19.2 H RBC 3.73 L Hgb 10.7 L Hct 31.7 L MCV 85 MCH 28.7 MCHC 33.8 RDW Std Deviation 48.3 H Plt Count 318 D Neut % (Auto) 88 H Lymph % (Auto) 7 L Glades % (Auto) 4 Eos % (Auto) 0 Baso % (Auto) 0 Neut # (Auto) 16.9 H Lymph # (Auto) 1.4 Glades # (Auto) 0.7 Eos # (Auto) 0.0 Baso # (Auto) 0.1 Immature Gran # (Auto) 0.13 H Absolute Nucleated RBC 0.00 Immature Gran % 1 H Nucleated RBC % 0 Urine Opiates Screen U Amphetamin/Meth Scrn U Cocaine Metab Screen U Marijuana (THC) Screen Urine Alcohol Syphilis Serology Blood Type Antibody Screen Blood Bank Wristband ID Assessment & Plan Assessment Comment Assessment comment: 33-year-old old para 3 status post repeat low-transverse at 32 weeks 3 days for prematurity, category 2 heart tone, in labor, postop day 1 Vital signs stable Hemoglobin 10.7 Meeting all postop milestones Type 2 diabetes on insulin 20 Lantus //4 before meals Plan Comment Plan Comment: Continue postop care monitor blood sugars Time Spent With Patient Time: Total time spent is greater than 50% in coordination of care (as documented) at patient's floor/unit and/or counseling patient:
--- NOTE | 2024-04-19 10:14 | PC.NURSE ---
Cleared by social work therapist
--- NOTE | 2024-04-19 10:48 | PC.SS ---
DOCUMENT CONTROLLER conducted bedside contact with the patient to address nursing referral indicating patient was positive for cocaine during .? Patient?s toxicology screening at admission was negative.? DOCUMENT CONTROLLER introduced self and role.? DOCUMENT CONTROLLER discussed basis of referral.? Patient confirmed use of cocaine during .? Patient stated use recreational.? DOCUMENT CONTROLLER discussed negative effects of substance use during .? Patient acknowledged risk factors of use during .? Patient reports no plans for continued use.? Infant, Maggy; has been transferred [facility].? Patient informed DOCUMENT CONTROLLER that she has obtained update on ?s condition.? Patient reports presence of anxiety due to situation but level is not impairing patient?s daily functioning.? Patient confirmed history of depression.? Prior to prescribed psychotropic medication but suspended use due to .? Patient is not aligned with counseling.? Patient denies history of self-harm behavior.? Patient denies current intent/plan of SI/HI.? Infant is patient?s second child.? Other child, Quentin; is 11 years old.? Patient resides at home with spouse and child.? Patient employed with [employer].? Patient is aligned with WIC and SNAP.? Patient not receiving TANF.? Patient denies history of CWS intervention.? Patient denies episodes of domestic violence.? Patient denies history of alcohol abuse.? OB services provided by Dr. Kasper, ARTHUR.? Patient consistent with appointments.? Patient plans on infant.? Patient has access to appropriate supplies and equipment; to include a car seat.? FOB will provide transportation upon discharge.? Patient describes possessing support system consisting of FOB and mother.? DOCUMENT CONTROLLER provided the patient with information to include Parenting Network, Mental Health resources, Warm Line, Alcohol/Drug services and Crisis Line.? No further intervention required at this time, health care social worker will be available to address any further concerns.? DOCUMENT CONTROLLER updated bedside nurse.? Nursing staff to submit high risk referral based on positive toxicology during course.?
[2024-04-19] MEDS: SIMETHICONE 80 MG CHEW PO (11:24)
[2024-04-19] MEDS: Milk Of Magnesia Susp 30 ML UDC PO (11:24)
[2024-04-19] MEDS: INSULIN LISPRO (AdmeLOG) 1 UNIT/0.01 ML UNIT 24 UNIT SC (17:30)
[2024-04-19] MEDS: IBUPROFEN TAB 400 MG TABLET 800 MG PO (20:35)
[2024-04-19] MEDS: INSULIN GLARGINE (Lantus) 5 UNIT/0.05 ML (PER 5 UNITS) 20 UNIT SC (21:43)
[2024-04-20] MEDS: HYDROcodone/APAP 5/325 TABLET 2 TAB PO (01:35)
[2024-04-20] MEDS: LEVOTHYROXINE SODIUM 275 MCG PO (06:39)
[2024-04-20 07:37] VITALS: BP 96/63; PULSE 81; RESP 16; TEMP 36.5; O2SAT 95
[2024-04-20 07:50] VITALS: BP 118/81; PULSE 88; RESP 16; TEMP 36.8; O2SAT 95
[2024-04-20] MEDS: INSULIN LISPRO (AdmeLOG) 1 UNIT/0.01 ML UNIT 24 UNIT SC (07:50)
[2024-04-20] MEDS: IBUPROFEN TAB 400 MG TABLET 800 MG PO (07:55)
--- NOTE | 2024-04-20 08:38 | PD.LDPPPRG ---
Subjective Subjective Interval history: Patient is doing well. Baby is 32 weeks and admitted to [facility]. She would like to go home today. Her blood sugars have been a little high. Patient has been an insulin-dependent diabetic since age 7. 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 She does have a monitor for her sugars. She is usually on long-acting insulin 25 units at night and in the morning and Humalog 25 at each meal. Patient denies heavy bleeding, pain is controlled no shortness of breath. Exam Vital Signs Temp Pulse Resp BP Pulse Ox O2 Del Method 97.7 F 81 16 96/63 95 Room Air 04/20/24 07:37 04/20/24 07:37 04/20/24 07:37 04/20/24 07:37 04/20/24 07:37 04/19/24 20:23 Narrative Exam Patient is alert and oriented x 3 in no apparent distress Routine Abdominal Exam Abdominal: Present soft and surgical scars (Incision clean dry and intact) Objective Labs 04/18/24 20:40 Assessment & Plan Problem List (1) delivery, delivered, current hospitalization: Problem details: Discharge patient home today. 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 Status: Acute (3) Morbid obesity: Problem details: Weight loss encouraged. Active lifestyle encouraged. Status: Acute Time Spent With Patient Time: Total time spent is greater than 50% in coordination of care (as documented) at patient's floor/unit and/or counseling patient: Time with patient: less than 15 minutes
--- NOTE | 2024-04-20 08:45 | ESDS_ITS ---
DS: Providers Provider Date of admission: 04/18/24 12:51 Primary care physician: Physician No Primary/Family Admitting Provider: Samra Kasper MD Attending Provider on Admission: Samra Kasper MD Consults: 04/18/24 13:58 Referral Routine Comment: Attending Provider on DC: Lali Dhaliwal MD ([facility]) Discharging Provider: Lali Dhaliwal MD ([facility]) Anticipated date of discharge: 04/20/24 DS: Diagnosis Discharge Diagnosis (1) Morbid obesity: Status: Acute (2) Pre-existing insulin-dependent diabetes mellitus during : Status: Acute (3) delivery, delivered, current hospitalization: Status: Acute Problem List Completed Was Problem List Reviewed/Reconciled?: Yes Summary/Hosp Course Brief History: 33-year-old 4 para 0-2-1-1 at 32 weeks and 3 days presented today at 12:45 PM with contractions. Patient is a previous x 2 with a significant history of demise at 27 weeks. Patient is a poorly controlled type II diabetic with multiple adjustments of insulin throughout her care and hemoglobin A1c of 10. Patient also had a 32-week section for placental abruption. Patient experiencing regular contractions every 2 to 3 minutes declines any vaginal bleeding or leaking. Peripartum Data Delivery Method: Low Transverse Procedures: Procedures Operation Date: 04/18/24 14:00 Actual Procedure Side Surgeon p in OR Samra Kasper MD complications: none Status at Discharge Cognitive/behavioral status at discharge: Patient is alert and orient x 3 ready to go home. Her baby is admitted to the NICU at [facility] at 32 weeks and she wants to go see baby. This is her second C- section. Functional status at discharge: independent ambulation Overall status at discharge: patient is progressing back to baseline Time Spent with Patient Time attestation: Total time spent providing and/or coordinating discharge services: Time spent: Less than 30 minutes Specific discharge activities: No heavy lifting intercourse tampons or douching for 6 weeks. Keep incision clean and dry. Manage blood sugars aggressively so patient does not get a wound complication. Follow-up in [facility] Dr. Tijerina in 1 week. Exam Vital Signs Temp Pulse Resp BP Pulse Ox O2 Del Method 97.7 F 81 16 96/63 95 Room Air 04/20/24 07:37 04/20/24 07:37 04/20/24 07:37 04/20/24 07:37 04/20/24 07:37 04/19/24 20:23 Constitutional Constitutional: no acute distress and morbidly obese Routine Abdominal Exam Abdominal: Present soft and surgical scars (Incision clean dry and intact fundus firm) Comments: No cyanosis clubbing or edema Discharge Plan Plan Patient Disposition: HOME (Self Care) Disposition Comment: Stable Prescriptions/Referrals Prescriptions/Med Rec: New hydrocodone-acetaminophen 5-325 mg Tablet 2 tab PO Q6HR MDD 6 PRN (Reason: Patient rated pain 9 to 10) Qty: 30 0RF ibuprofen 400 mg Tablet 800 mg PO Q8H PRN (Reason: See Comments) Qty: 90 0RF Continued levothyroxine 112 mcg Tablet 112 mcg PO ACBR Qty: 30 0RF multivitamin with folic acid [Tab-A-Juanita] 400 mcg Tablet 1 tab PO DAILY Qty: 30 0RF nortriptyline 25 mg Capsule 25 mg PO HS pantoprazole [Protonix] 40 mg tablet,delayed release (DR/EC) 40 mg PO QDAY 30 Days Qty: 30 2RF Discontinued aspirin 81 mg tablet,delayed release (DR/EC) 81 mg PO QDAY Patient Comments: TAKE 1 TABLET BY MOUTH EVERY DAY FOR 30 DAYS ferrous sulfate 325 mg (65 mg iron) tablet 325 mg PO QDAY Patient Comments: TAKE 1 TABLET BY MOUTH THREE TIMES A DAY FOR 30 DAYS promethazine 25 mg suppository 25 mg MI Q6H PRN (Reason: nausea and vomiting) Qty: 12 0RF No Action insulin lispro [Humalog KwikPen Insulin] 100 unit/mL insulin pen 8 unit subcut TID Qty: 15 0RF insulin glargine U-300 conc [Toujeo SoloStar U-300 Insulin] 300 unit/mL (1.5 mL) insulin pen 40 unit SUBCUT ONCE PM Qty: 4.5 4RF Referrals: No Primary/Family,Physician [Primary Care Provider] - Patient/Caregiver Discharge Instructions Discharge Activity: activity as tolerated Other Discharge Activity Instructions:: No heavy lifting heavy exercise tampons intercourse douching or bathtubs for 6 weeks Other Discharge Diet Instructions: Follow diabetic diet, manage blood sugars aggressively. Education Materials: Healthy Weight Loss After , High Blood Sugar (Hyperglycemia), C Section Dc Print Language: Nepali Activity Restrictions/Additional Instructions: No heavy lifting intercourse tampons or douching for 6 weeks. Call for fevers erythema around incision redness in calfs severe depression or heavy vaginal bleeding. Follow-up with [facility] in 1 week. Stand Alone Forms: Dominique Award Info., Patient Portal Info Letter Discharge Order Discharge Orders: Discharge (Routine); Ordered 04/20/24 Ordered By: Lali Dhaliwal ([facility]) Planned Discharge Date 04/20/24
--- NOTE | 2024-04-20 10:15 | PC.SS ---
[employer] got a call from Alan from [facility] regarding to see if a CWS referral was made.
[2024-04-20] MEDS: MEASLES, MUMPS & RUBELLA VACC 0.5 ML VIAL SCi (12:11)
[2024-04-20] MEDS: DIPHTH,PERTUSS(ACELL),TET VAC 0.5 ML SYR- ADULT IMi (12:12)
== END 2024-04-20 13:00 | disposition home or self-care (01) | DRG 540 ==
LOC: S4NX 14:07 → S4SX 14:07
PROVIDERS: Admitting Provider Student in an Organized Health Care Education/Training Program; Visit Provider Student in an Organized Health Care Education/Training Program
PROC: 10D00Z1 Extraction of Products of Conception, Low, Open Approach (ICD-10-PCS; CPT 59514; principal; 2024-04-18 13:45)
DX: O34.211 Maternal care for low transverse scar from previous cesarean delivery (principal); O24.12 Pre-existing type 2 diabetes mellitus, in childbirth; Z37.0 Single live birth; E11.65 Type 2 diabetes mellitus with hyperglycemia; O60.14X0 Preterm labor third trimester with preterm delivery third trimester, not applicable or unspecified; Z3A.32 32 weeks gestation of pregnancy; O24.92 Unspecified diabetes mellitus in childbirth; O99.214 Obesity complicating childbirth; E66.01 Morbid (severe) obesity due to excess calories; Z79.4 Long term (current) use of insulin; O45.93 Premature separation of placenta, unspecified, third trimester; O76 Abnormality in fetal heart rate and rhythm complicating labor and delivery
CPT/HCPCS: 36415; 59025; 80307; 80320; 85025; 86780; 86850; 86900; 86901; 90707; 90715; A4217; A4649; J0689; J0702; J1815; J2590; J3490; J7120; A9270; G0480